=== PATIENT | male | born 2000 | race Caucasian/White ===

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

== ENCOUNTER 2020-01-07 16:46 | Inpatient (IN) | payer MEDICAID, SELFPAY ==
[2019-12-08 10:33] VITALS: BP 139/85; BMI 33.7
[2020-01-07 17:06] VITALS: BP 143/72; PULSE 75; RESP 18; TEMP 36.7; O2SAT 98; BMI 33.0
--- NOTE | 2020-01-07 17:27 | ED_ITS ---
HPI - Psych General: Chief Complaint: Psychiatric Symptoms Stated Complaint: [facility]/Crisis Hotline Time Seen by Provider: 01/07/20 17:10 Source: patient Mode of arrival: ambulatory Limitations: no limitations History of Present Illness: HPI Narrative: 19-year-old male who is states he has been out of his meds for last 2 weeks and states that he felt like before they were not working. He states that he has been having increased suicidal ideations along with homicidal ideations. He has no specific plans but states that he feels like he needs to get help he wants to be admitted at this time. Associated symptoms: Reports depression and suicidal ideation Review of Systems 2 Const: Denies: fever(s), chills, body aches or change in appetite Eyes: Denies: blurry vision or eye discomfort ENMT: Denies: throat pain or dental pain Card: Denies: chest pain Resp: Denies: dyspnea GI: Denies: abdominal pain, nausea, vomiting or diarrhea : Denies: dysuria Musc: Denies: neck pain or back pain Skin/Breast: Denies: rash Neuro: Denies: headache(s) Psych: Reports: depression and suicidal ideation Charles/Lymph: Denies: easy bruising All/Imm: Denies: urticaria PFSH ED PFSH: Medical History Attention-deficit hyperactivity disorder, combined type Attention-deficit hyperactivity disorder, predominantly hyperactive type Borderline personality disorder Conduct disorder, adolescent-onset type Post-traumatic stress disorder, chronic Family History Other Dementia Diabetes Hypertension Lung disease Psychiatric illness Social History Smoking and tobacco status: never smoked Second hand smoke exposure: Yes Alcohol intake: never Adopted: No Caregiver/support person: No Lives independently: Yes Household members: family Housing: House Marital status: Single Number of children: 0 Number of grandchildren: 0 Highest education level completed: High School Graduate service: No Current occupational status: student Current occupational exposures/hazards: No Pets and animals: Yes Pets & animals: cat(s) and dog(s) History of recent travel: No Leisure activites: art, reading and other Leisure activities details: video games Sexually active: No Current gender identity: Male Sun/Oriental Orthodox: Other Special sun needs: No Agree to transfusion: Yes Financial difficulty paying for basics: Not Very Hard Physical Exam Const: COMMON NORMALS: no acute distress, patient oriented x3 and healthy appearing HENMT: COMMON NORMALS: normocephalic and atraumatic HEAD & SCALP: normocephalic and atraumatic Eye: COMMON NORMALS: Equal, round and reactive pupils present and EOMs intact bilaterally PUPIL: Yes Equal, round and reactive pupils present Neck/C-Spine: COMMON NORMALS: full ROM and supple Chest: COMMONS NORMALS: normal inspection of the chest and normal palpation of entire chest wall Resp: COMMON NORMALS: normal respiratory effort, No retractions, No use of accessory muscles and clear to auscultation bilaterally AUSCULTATION: clear to auscultation bilaterally Cardio: COMMON NORMALS: regular rate, regular rhythm and No murmurs present (Cardio) RATE: regular rate RHYTHM: regular rhythm GI: COMMON NORMALS: Normal to inspection, nondistended, normoactive bowel sounds present, Soft to palpation, non-tender and no masses PALPATION: Yes Soft to palpation Extremity: COMMON NORMALS: normal to inspection and full ROM Neuro: COMMON NORMALS: patient oriented x3, moves all extremities and no focal motor deficits Psych: COMMON NORMALS: mental status grossly normal and cooperative MOOD & AFFECT: Yes depressed mood THOUGHT CONTENT: Yes Suicidality present Skin: COMMON NORMALS: no rashes or lesions noted and no wounds GENERAL SKIN EXAM: no rashes or lesions noted MDM - Psych MDM Narrative: Medical decision making narrative: Patient presents here with suicidal ideation. Patient not been taking his meds. I spoke to Dr. Lopez and will admit to the psychiatric unit. Patient is medically cleared and is well-appearing here.. Lab Data: Labs: Lab Results 01/07/20 Range/Units 17:57 WBC 7.0 (4.5-13.0) 10^3/ uL RBC 5.74 H (4.1-5.3) 10^6/u L Hgb 14.7 (11.7-16.6) g/dL Hct 46.5 (42.0-52.0) % MCV 81.0 (80-94) fL MCH 25.6 L (28.0-34.0) pg MCHC 31.6 (30.0-36.0) g/dL RDW 13.2 (12.1-15.1) % Plt Count 202 (130-400) 10^3/c mm MPV 12.2 H (7.4-10.4) fL Neut % (Auto) 51.7 % Lymph % (Auto) 31.7 % Porter % (Auto) 8.9 % Eos % (Auto) 6.9 % Baso % (Auto) 0.7 % Neut # (Auto) 3.62 (1.8-8.0) 10^3/u L Lymph # (Auto) 2.2 (1.5-6.5) 10^3/u L Porter # (Auto) 0.6 (0.2-0.9) 10^3/u L Eos # (Auto) 0.5 (0.0-0.8) 10^3/u L Baso # (Auto) 0.1 (0.0-0.1) 10^3/u L Nucleated RBC % (a uto) 0 % Nucleated RBCs # 0.0 /100WBC Discharge Plan Discharge Patient Disposition: Admitted As Inpatient Clinical Impression: Suicidal ideation Condition: Stable Referrals: Fracisco Perez MD [Primary Care Provider] - Coding Level of Care Code ED Physician Assistant Primary Care for Chg Fwd Exam Comprehensive
[2020-01-07 18:05] LABS: Basophils # 0.1 10^3/uL (0.0-0.1); Basophils % 0.7 %; Eosinophils # 0.5 10^3/uL (0.0-0.8); Eosinophils % 6.9 %; Hematocrit 46.5 % (42.0-52.0); Hemoglobin 14.7 g/dL (11.7-16.6); Lymphocytes # 2.2 10^3/uL (1.5-6.5); Lymphocytes % 31.7 %; Mean Corpuscular HGB Conc 31.6 g/dL (30.0-36.0); Mean Corpuscular Hemoglobin 25.6 pg (28.0-34.0); Mean Platelet Volume 12.2 fL (7.4-10.4); Monocytes # 0.6 10^3/uL (0.2-0.9); Monocytes % 8.9 %; Neutrophils # 3.62 10^3/uL (1.8-8.0); Neutrophils % 51.7 %; Nucleated Red Blood Cells % 0 %; Platelet Count 202 10^3/cmm (130-400); Red Blood Count 5.74 10^6/uL (4.1-5.3); Red Cell Distribution Width 13.2 % (12.1-15.1)
[2020-01-07 18:24] LABS: Amphetamines Screen Urine Negative (Negative); Barbiturates Screen Urine Negative (Negative); Benzodiazepines Screen Urine Negative (Negative); Cocaine Screen Urine Negative (Negative); Opiate Screen Urine Negative (Negative); PCP Screen Urine Negative (Negative); THC Screen Urine Negative (Negative)
[2020-01-07 18:27] LABS: Alanine Aminotransferase 57 U/L (0-41); Albumin Level 4.8 g/dL (3.5-5.2); Alkaline Phosphatase 103 IU/L (40-130); Anion Gap 16.2 (5-19); Aspartate Amino Transferase 27 U/L (0-40); Blood Urea Nitrogen 14 mg/dL (6-20); Carbon Dioxide 23 mmol/L (22-29); Chloride 105 mmol/L (98-107); Globulin 2.8 g/dL (1.3-4.6); Glomerular Filtration Rate 145.3 mL/min (90-130); Glucose 96 mg/dL (65-115); Osmolality Calculated 290 mOsm/kg (285-295); Potassium 4.2 mmol/L (3.5-5.1); Sodium 140 mmol/L (136-145); Total Bilirubin 0.3 mg/dL (0.15-1.2); Total Protein 7.6 g/dL (6.6-8.7)
[2020-01-07 18:33] LABS: Acetaminophen < 5.0 ug/mL (10-30); Alcohol Level < 10 mg/dL (0-10); Salicylate < 0.3 mg/dL (3-10)
[2020-01-07] MEDS: LORazepam 2 mg Tablet PO (18:41)
[2020-01-07 19:30] VITALS: BP 146/85; PULSE 75; RESP 18; TEMP 36.6; O2SAT 98
[2020-01-07 22:00] VITALS: BP 146/85; PULSE 75; RESP 18; TEMP 36.6; O2SAT 98
[2020-01-08 06:00] VITALS: BP 87/51; PULSE 54; RESP 17; TEMP 36.8; O2SAT 96
[2020-01-08] MEDS: fluoxetine 10 mg Capsule PO (08:46)
[2020-01-08] MEDS: OXcarbazepine 300 mg Tablet 150 MG PO ×2 (08:46→18:10)
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
[2020-01-08 13:52] VITALS: BP 134/73; PULSE 101; RESP 18; TEMP 37.3; O2SAT 95
[2020-01-08 22:00] VITALS: BP 139/74; PULSE 73; RESP 18; TEMP 36.6; O2SAT 97
--- NOTE | 2020-01-09 04:20 | PC.NURSE ---
Patient says he dont want any medication to sleep because he is having nightmeres.He reports command auditory hallucinations that never stop. He specified the fact that he hears 13 different voices. He says that they tell him to kill people, hurt people, and at times tell him to kill himself. He said the things that the voices tell me to do are very detailed but refused to share the content with me at this time. he said that at times he feels that people are talking about him. He says he can read lips but these masks are making him nervous because he can not see what people are saying. Then he went on to say that he is numb and that he lives in [place] everyday and really doesnt care what others say about him.
[2020-01-09 06:00] VITALS: BP 116/65; PULSE 55; RESP 17; TEMP 36.6; O2SAT 98
[2020-01-09] MEDS: fluoxetine 10 mg Capsule PO (08:55)
[2020-01-09] MEDS: OXcarbazepine 300 mg Tablet 150 MG PO ×2 (08:55→17:16)
--- NOTE | 2020-01-09 10:50 | PM.NPN ---
Subjective NPU Subjective: Interval history: Dex presents today reporting that the medication is functioning fine. We are continuing our investigation into what might be the issue with him obtaining the medication but currently he reports that a little better back on it. He denies any major issues reports he is eating okay and starting to sleep better. Mental Status Exam MSE Comments: This is an obese white male with adequate dress, grooming and limited eye contact. No abnormal movements except for psychomotor retardation. Cooperative with exam in mild distress. Speech was decreased rate and volume. Mood described as starting to feel a little better, affect remains flat. Thought process organized. Thought content: Patient denied any suicidal or homicidal ideation, there were no delusions reported or noted, he denied any auditory visual hallucinations. Attention and concentration appeared intact and memory appeared reliable but none were formally tested. He is alert and oriented x3. Insight and judgment are limited, impulse control is limited. Vitals/I&O/Wt Last Vital Signs Temp 98.7 F 01/09/20 20:41 Pulse 96 01/09/20 20:41 Resp 18 01/09/20 20:41 BP 119/79 01/09/20 20:41 Pulse Ox 97 01/09/20 20:41 Data NPU : 01/07/20 17:57 01/07/20 17:57 A&P Additional A&P Information (1) Suicidal ideation: (2) Attention-deficit hyperactivity disorder, combined type: (3) Post-traumatic stress disorder, chronic: (4) Borderline personality disorder: (5) Attention-deficit hyperactivity disorder, predominantly hyperactive type: (6) Conduct disorder, adolescent-onset type: (7) Autism spectrum disorder: This is a 19 year old, white male, with history of intermittent explosive disorder, attention deficit hyperactivity disorder, post-traumatic stress disorder, borderline personality disorder, and question of autism spectrum disorder, who presents off of medication and unclear if he can afford the medication, having not taken it for three weeks. Continue current medication, except: Encourage individual, group, and milieu therapy. Continue q-15 minute checks for safety. Involuntary Hold Information 96 Hour Hold: 96 Hour Involuntary Admission: No Attestations NPU Medical Necessity Statement*: Inpatient hospitalization is medically necessary and the clinically appropriate intervention, at this time. We will monitor medications and make changes as indicated.Likely length of stay is 2-3 days. 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
[2020-01-09 14:00] VITALS: BP 113/77; PULSE 99; RESP 18; TEMP 36.5; O2SAT 97
[2020-01-09 20:41] VITALS: BP 119/79; PULSE 96; RESP 18; TEMP 37.1; O2SAT 97
[2020-01-10 06:00] VITALS: BP 109/70; PULSE 70; RESP 16; TEMP 36.5; O2SAT 96
[2020-01-10] MEDS: OXcarbazepine 300 mg Tablet 150 MG PO ×2 (09:12→17:06)
[2020-01-10] MEDS: fluoxetine 10 mg Capsule PO (09:12)
--- NOTE | 2020-01-10 10:39 | P.PN_ITS ---
Subjective NPU Subjective: Interval history: Brian presents today reporting that things are going better. He feels much better being back on his medication. We discussed working with the treatment team tomorrow to get a full understanding of his insurance and payment situation so that we do not run into a similar situation in the future. He endorsed the need to be discharged by Saturday because of some family considerations. He reports that he is eating and sleeping better. Mental Status Exam MSE Comments: This is an obese white male with adequate dress, grooming and limited eye contact. No abnormal movements except for improving psychomotor retardation. Cooperative with exam in mild distress. Speech was decreased rate and normal volume. Mood described as starting to feel a little better, affect remains flat. Thought process organized. Thought content: Patient denied any suicidal or homicidal ideation, there were no delusions reported or noted, he denied any auditory visual hallucinations. Attention and concentration appeared intact and memory appeared reliable but none were formally tested. He is alert and oriented x3. Insight and judgment are limited, but improving, impulse control is limited. Vitals/I&O/Wt Last Vital Signs Temp 97.7 F 01/10/20 19:45 Pulse 86 01/10/20 19:45 Resp 16 01/10/20 19:45 BP 114/80 01/10/20 19:45 Pulse Ox 99 01/10/20 19:45 Weight last 48 hrs Weight 107.048 kg Data NPU : 01/07/20 17:57 01/07/20 17:57 A&P Additional A&P Information (1) Suicidal ideation: (2) Attention-deficit hyperactivity disorder, combined type: (3) Post-traumatic stress disorder, chronic: (4) Borderline personality disorder: (5) Attention-deficit hyperactivity disorder, predominantly hyperactive type: (6) Conduct disorder, adolescent-onset type: (7) Autism spectrum disorder: This is a 19 year old, white male, with history of intermittent explosive dis order, attention deficit hyperactivity disorder, post-traumatic stress disorder, borderline personality disorder, and question of autism spectrum disorder, who presents off of medication and unclear if he can afford the medication, having not taken it for three weeks. Continue current medication, except: Encourage individual, group, and milieu therapy. Continue q-15 minute checks for safety. Involuntary Hold Information 96 Hour Hold: 96 Hour Involuntary Admission: No Attestations NPU Medical Necessity Statement*: Inpatient hospitalization is medically necessary and the clinically appropriate intervention, at this time. We will monitor medications and make changes as indicated.Likely length of stay is 1-2 days. Coding Level of Care Code Acute Nursing Home Social Worker for [facility]
[2020-01-10 14:00] VITALS: BP 127/86; PULSE 94; RESP 18; TEMP 36.9
[2020-01-10 19:45] VITALS: BP 114/80; PULSE 86; RESP 16; TEMP 36.5; O2SAT 99
[2020-01-11 06:00] VITALS: BP 100/63; PULSE 75; RESP 16; TEMP 36.3; O2SAT 95
[2020-01-11] MEDS: fluoxetine 10 mg Capsule PO ×2 (07:50→12:00)
[2020-01-11] MEDS: OXcarbazepine 300 mg Tablet 150 MG PO (07:51)
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
[2020-01-11 12:05] VITALS: BP 100/63; PULSE 75; RESP 16; TEMP 36.3; O2SAT 95
--- NOTE | 2020-01-11 13:26 | NPU.GN ---
Brian seemed to be trying to be a class-clown today. For the first 20-30 minutes, he would speak over ECW while talking to Greg and made paper airplanes out of the reading material he was given. While he did add a couple of things to the conversation, neither statements were relevant to the conversation and he seemed as though he was just attempting to be funny. Brian did quiet down for the last half of the session but did not seem very engaged this afternoon.
== END 2020-01-11 15:10 | disposition home or self-care (01) | DRG 883 ==
LOC: ER 18:27 → NP 18:46
PROVIDERS: Emergency Medicine; Admitting Provider Psychiatry & Neurology Psychiatry; PCP Family Medicine; Visit Provider Psychiatry & Neurology Psychiatry
DX: F63.81 Intermittent explosive disorder (principal); R45.851 Suicidal ideations; F43.12 Post-traumatic stress disorder, chronic; Z91.120 Patient's intentional underdosing of medication regimen due to financial hardship; F90.2 Attention-deficit hyperactivity disorder, combined type; F90.1 Attention-deficit hyperactivity disorder, predominantly hyperactive type; F60.3 Borderline personality disorder; F91.9 Conduct disorder, unspecified; F84.0 Autistic disorder; Z81.8 Family history of other mental and behavioral disorders
CPT/HCPCS: 12345; 36415; 80053; 80306; 80307; 85025; 99284

== ENCOUNTER 2020-02-12 20:10 | Inpatient (IN) | payer MEDICAID, SELFPAY ==
[2019-12-08 10:33] VITALS: BP 139/85; BMI 33.7
[2020-02-12 20:17] VITALS: BP 136/74; PULSE 101; RESP 18; TEMP 36.4; O2SAT 98; BMI 32.8
--- NOTE | 2020-02-12 20:38 | ED_ITS ---
HPI - Psych General: Chief Complaint: Psychiatric Symptoms Stated Complaint: PSYCH Time Seen by Provider: 02/12/20 20:35 Source: patient Mode of arrival: ambulatory Limitations: no limitations History of Present Illness: HPI Narrative: 19-year-old male who states he has been having suicidal thoughts over the last 2 to 3 days. He states that he just has been severely depressed and does not have the will to live. He states he did not get his Concerta refilled. Denies any vomiting or diarrhea. Denies any attempts at suicide. complaint: suicidal ideation Associated symptoms: Reports depression and suicidal ideation Review of Systems Const: Denies: fever(s), chills, body aches or change in appetite Eyes: Denies: blurry vision or eye discomfort ENMT: Denies: throat pain or dental pain Card: Denies: chest pain Resp: Denies: dyspnea GI: Denies: abdominal pain, nausea, vomiting or diarrhea : Denies: dysuria Musc: Denies: neck pain or back pain Skin/Breast: Denies: rash Neuro: Denies: headache(s) Psych: Reports: depression and suicidal ideation Charles/Lymph: Denies: easy bruising All/Imm: Denies: urticaria PFSH ED PFSH: Medical History (Updated 02/12/20 @ 21:11 by Ibrahima Curiel MD) Attention-deficit hyperactivity disorder, combined type Borderline personality disorder Conduct disorder, adolescent-onset type Post-traumatic stress disorder, chronic Family History Other Dementia Diabetes Hypertension Lung disease Psychiatric illness Social History Smoking and tobacco status: never smoked Second hand smoke exposure: Yes Alcohol intake: never Adopted: No Caregiver/support person: No Lives independently: Yes Household members: family Housing: House Marital status: Single Number of children: 0 Number of grandchildren: 0 Highest education level completed: High School Graduate service: No Current occupational status: student Current occupational exposures/hazards: No Pets and animals: Yes Pets & animals: cat(s) and dog(s) History of recent travel: No Leisure activites: art, reading and other Leisure activities details: video games Sexually active: No Current gender identity: Male Sun/Evangelical: Other Special sun needs: No Agree to transfusion: Yes Financial difficulty paying for basics: Not Very Hard Physical Exam Const: COMMON NORMALS: no acute distress, patient oriented x3 and healthy appearing HENMT: COMMON NORMALS: normocephalic and atraumatic HEAD & SCALP: normocephalic and atraumatic Eye: COMMON NORMALS: Equal, round and reactive pupils present and EOMs intact bilaterally PUPIL: Yes Equal, round and reactive pupils present Neck/C-Spine: COMMON NORMALS: full ROM and supple Chest: COMMONS NORMALS: normal inspection of the chest and normal palpation of entire chest wall Resp: COMMON NORMALS: normal respiratory effort, No retractions, No use of accessory muscles and clear to auscultation bilaterally AUSCULTATION: clear to auscultation bilaterally Cardio: COMMON NORMALS: regular rate, regular rhythm and No murmurs present (Cardio) RATE: regular rate RHYTHM: regular rhythm GI: COMMON NORMALS: Normal to inspection, nondistended, normoactive bowel sounds present, Soft to palpation, non-tender and no masses PALPATION: Yes Soft to palpation Extremity: COMMON NORMALS: normal to inspection and full ROM Neuro: COMMON NORMALS: patient oriented x3, moves all extremities and no focal motor deficits Psych: COMMON NORMALS: mental status grossly normal, Normal thought process present and cooperative MOOD & AFFECT: Yes depressed mood THOUGHT PROCESS: Normal thought process present THOUGHT CONTENT: Yes Suicidality present Skin: COMMON NORMALS: no rashes or lesions noted and no wounds GENERAL SKIN EXAM: no rashes or lesions noted MDM - Psych MDM Narrative: Medical decision making narrative: Patient presents here with suicidal ideation. Patient voluntarily wanting to be admitted. He is well- appearing here and medically cleared. I spoke to psychiatrist and will admit to the psychiatric unit. Lab Data: Labs: Lab Results 02/12/20 Range/Units 20:42 WBC 8.8 (4.5-13.0) 10^3/ uL RBC 6.22 H (4.1-5.3) 10^6/u L Hgb 16.0 (11.7-16.6) g/dL Hct 50.9 (42.0-52.0) % MCV 81.8 (80-94) fL MCH 25.7 L (28.0-34.0) pg MCHC 31.4 (30.0-36.0) g/dL RDW 13.0 (12.1-15.1) % Plt Count 269 (130-400) 10^3/c mm MPV 12.2 H (7.4-10.4) fL Neut % (Auto) 56.6 % Lymph % (Auto) 29.2 % [place] % (Auto) 8.4 % Eos % (Auto) 5.0 % Baso % (Auto) 0.6 % Neut # (Auto) 4.97 (1.8-8.0) 10^3/u L Lymph # (Auto) 2.6 (1.5-6.5) 10^3/u L [place] # (Auto) 0.7 (0.2-0.9) 10^3/u L Eos # (Auto) 0.4 (0.0-0.8) 10^3/u L Baso # (Auto) 0.1 (0.0-0.1) 10^3/u L Nucleated RBC % (a uto) 0 % Nucleated RBCs # 0.0 /100WBC Discharge Plan Discharge Patient Disposition: Admitted As Inpatient Clinical Impression: Suicidal ideation Condition: Stable Coding Level of Care Code ED Grooving Machine Operator for Gi Fwd Exam Comprehensive
[2020-02-12 20:59] LABS: Basophils # 0.1 10^3/uL (0.0-0.1); Basophils % 0.6 %; Eosinophils # 0.4 10^3/uL (0.0-0.8); Hematocrit 50.9 % (42.0-52.0); Lymphocytes # 2.6 10^3/uL (1.5-6.5); Lymphocytes % 29.2 %; Mean Corpuscular HGB Conc 31.4 g/dL (30.0-36.0); Mean Corpuscular Hemoglobin 25.7 pg (28.0-34.0); Mean Corpuscular Volume 81.8 fL (80-94); Mean Platelet Volume 12.2 fL (7.4-10.4); Monocytes # 0.7 10^3/uL (0.2-0.9); Monocytes % 8.4 %; Neutrophils # 4.97 10^3/uL (1.8-8.0); Neutrophils % 56.6 %; Nucleated Red Blood Cells % 0 %; Platelet Count 269 10^3/cmm (130-400); Red Blood Count 6.22 10^6/uL (4.1-5.3); White Blood Count 8.8 10^3/uL (4.5-13.0)
[2020-02-12 21:13] LABS: Amphetamines Screen Urine Negative (Negative); Barbiturates Screen Urine Negative (Negative); Benzodiazepines Screen Urine Negative (Negative); Cocaine Screen Urine Negative (Negative); Opiate Screen Urine Negative (Negative); PCP Screen Urine Negative (Negative); THC Screen Urine Negative (Negative)
[2020-02-12 21:19] LABS: Alanine Aminotransferase 49 U/L (0-41); Albumin Level 5.1 g/dL (3.5-5.2); Alkaline Phosphatase 110 IU/L (40-130); Anion Gap 17.4 (5-19); Aspartate Amino Transferase 25 U/L (0-40); Blood Urea Nitrogen 22 mg/dL (6-20); Calcium 10.2 mg/dL (8.5-10.5); Carbon Dioxide 24 mmol/L (22-29); Chloride 107 mmol/L (98-107); Glomerular Filtration Rate 145.3 mL/min (90-130); Glucose 92 mg/dL (65-115); Osmolality Calculated 301 mOsm/kg (285-295); Potassium 4.4 mmol/L (3.5-5.1); Sodium 144 mmol/L (136-145); Total Bilirubin 0.2 mg/dL (0.15-1.2); Total Protein 8.1 g/dL (6.6-8.7)
[2020-02-12 21:20] LABS: Acetaminophen < 5.0 ug/mL (10-30); Alcohol Level < 10 mg/dL (0-10); Salicylate < 0.3 mg/dL (3-10)
[2020-02-12 21:33] VITALS: BP 164/99; PULSE 95; RESP 18; O2SAT 97
[2020-02-12 21:39] VITALS: BP 143/84; PULSE 101; RESP 17; TEMP 37.7; O2SAT 98
[2020-02-12 22:00] VITALS: BP 143/84; PULSE 101; RESP 17; TEMP 37.7; O2SAT 98
[2020-02-12 23:00] VITALS: BP 143/84; PULSE 101; RESP 17; TEMP 37.7; O2SAT 98
[2020-02-13 06:00] VITALS: BP 93/55; PULSE 64; RESP 16; TEMP 36.8; O2SAT 95
[2020-02-13] MEDS: fluoxetine 20 mg Capsule PO (08:20)
[2020-02-13] MEDS: topiramate 25 mg Tablet 50 MG PO ×2 (08:20→17:13)
[2020-02-13] MEDS: OXcarbazepine 300 mg Tablet 150 MG PO ×2 (08:20→20:44)
[2020-02-13 13:23] VITALS: BP 134/84; PULSE 79; RESP 18; TEMP 36.7
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
[2020-02-13 20:34] VITALS: BP 124/77; PULSE 66; RESP 15; TEMP 37.1; O2SAT 98
[2020-02-14 06:00] VITALS: BP 126/78; PULSE 72; RESP 17; TEMP 37.1; O2SAT 97
[2020-02-14] MEDS: topiramate 25 mg Tablet 50 MG PO ×2 (08:15→17:06)
[2020-02-14] MEDS: fluoxetine 20 mg Capsule PO (08:15)
[2020-02-14] MEDS: OXcarbazepine 300 mg Tablet 150 MG PO ×2 (08:22→21:06)
[2020-02-14 13:39] VITALS: BP 100/61; PULSE 64; RESP 18; TEMP 36.7; O2SAT 97
[2020-02-14] MEDS: buPROPion SR (12 HR) 150 mg Tablet PO (14:26)
--- NOTE | 2020-02-14 14:39 | P.PN_ITS ---
Subjective NPU Subjective: Interval history: There presents today continuing to report that he is not feeling any better. He reports he continues to be depressed. We discussed the risk, benefits and alternatives of initiating Wellbutrin for his depression and for ADHD since cannot get his methylphenidate and understood and agreed to proceed as is documented in this note. Mental Status Exam MSE Comments: This is an obese white male with adequate dress, grooming and improving eye contact. No abnormal movements except for psychomotor retardation. Cooperative with exam in mild distress. Speech was decreased rate and volume. Mood described as depressed, affect congruent. Thought process organized. Thought content: Patient expressed suicidal but denied homicidal ideation, there were no delusions reported or noted, he denied any auditory visual hallucinations. Attention and concentration appeared intact and memory appeared reliable but none were formally tested. He is alert and oriented x3. Insight and judgment are limited, impulse control is limited. Vitals/I&O/Wt Last Vital Signs Temp 98.6 F 02/14/20 20:22 Pulse 107 H 02/14/20 20:22 Resp 17 02/14/20 20:22 BP 124/78 02/14/20 20:22 Pulse Ox 100 02/14/20 20:22 Weight last 48 hrs Weight 106.594 kg Data NPU : 02/12/20 20:42 02/12/20 20:42 A&P Additional A&P Information (1) Suicidal ideation: (2) Autism spectrum disorder: (3) Attention-deficit hyperactivity disorder, combined type: (4) Post-traumatic stress disorder, chronic: (5) Borderline personality disorder: (6) Conduct disorder, adolescent-onset type: Additional A&P Information This is a 19 year old, white male, with history of intermittent explosive disorder, attention deficit hyperactivity disorder, post-traumatic stress disorder, borderline personality disorder, and question of autism spectrum disorder, who presents off of medication and unclear if he can afford the medication, having not taken it for three weeks. Need to see if there is an alternative for his Concerta or a way to ensure that he gets coverage. Continue current medication, except: Start Wellbutrin SR 150 now x1 and Wellbutrin XL 150 mg p.o. every morning Encourage individual, group, and milieu therapy. Continue q-15 minute checks for safety. Involuntary Hold Information 96 Hour Hold: 96 Hour Involuntary Admission: No Attestations NPU Medical Necessity Statement*: Inpatient hospitalization is medically necessary and the clinically appropriate intervention, at this time. We will monitor medications and make changes as indicated. Likely length of stay is 2-4 days. 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
[2020-02-14 20:22] VITALS: BP 124/78; PULSE 107; RESP 17; TEMP 37; O2SAT 100
[2020-02-15 06:00] VITALS: BP 107/70; PULSE 62; RESP 15; TEMP 37; O2SAT 97
[2020-02-15] MEDS: fluoxetine 20 mg Capsule PO (08:55)
[2020-02-15] MEDS: topiramate 25 mg Tablet 50 MG PO ×2 (08:55→20:43)
[2020-02-15] MEDS: OXcarbazepine 300 mg Tablet 150 MG PO ×2 (08:56→20:41)
[2020-02-15] MEDS: buPROPion XL (24 HR) 150 mg Tablet PO (08:56)
[2020-02-15 14:00] VITALS: BP 127/72; PULSE 82; RESP 18; TEMP 36.2; O2SAT 97
--- NOTE | 2020-02-15 15:25 | P.PN_ITS ---
Subjective NPU Subjective: Interval history: Dex presents today reporting that he is doing okay with the Wellbutrin but he does not know that it is strong enough as he continues to feel depressed. We discussed the fact and reviewed the purpose of these medications he is imagining are for his ADHD. Clearly he has an errant idea in that regard. We discussed the fact that he used to be on Abilify as a mood stabilizer and he reports that it worked really well but he did not like the injection. We discussed the risks, benefits and alternatives of restarting the Abilify, but avoiding the injection as the vehicle of administration and he understood and agreed to proceed as documented in this note. Mental Status Exam MSE Comments: This is an obese white male with adequate dress, grooming and i mproving eye contact. No abnormal movements except for psychomotor retardation. Cooperative with exam in mild distress. Speech was decreased rate and volume. Mood described as depressed, affect congruent. Thought process organized. Thought content: Patient expressed suicidal but denied homicidal ideation, there were no delusions reported or noted, he denied any auditory visual hallucinations. Attention and concentration appeared intact and memory appeared reliable but none were formally tested. He is alert and oriented x3. Insight and judgment are limited, impulse control is limited. Vitals/I&O/Wt Last Vital Signs Temp 98.6 F 02/15/20 20:29 Pulse 103 H 02/15/20 20:29 Resp 15 02/15/20 20:29 BP 140/82 02/15/20 20:29 Pulse Ox 97 02/15/20 20:29 02/15/20 02/15/20 02/16/20 14:59 22:59 06:59 Intake Total 250 / 250 Balance 250 / 250 Weight last 48 hrs Weight 106.594 kg Data NPU : 02/12/20 20:42 02/12/20 20:42 A&P Additional A&P Information (1) Suicidal ideation: (2) Autism spectrum disorder: (3) Attention-deficit hyperactivity disorder, combined type: (4) Post-traumatic stress disorder, chronic: (5) Borderline personality disorder: (6) Conduct disorder, adolescent-onset type: Additional A&P Information This is a 19 year old, white male, with history of intermittent explosive disorder, attention deficit hyperactivity disorder, post-traumatic stress disorder, borderline personality disorder, and question of autism spectrum disorder, who presents off of medication and unclear if he can afford the medication, having not taken it for three weeks. Need to see if there is an alternative for his Concerta or a way to ensure that he gets coverage. Continue current medication, except: Start Abilify 5 mg now and 10 mg p.o. every morning. Encourage individual, group, and milieu therapy. Continue q-15 minute checks for safety. Involuntary Hold Information 96 Hour Hold: 96 Hour Involuntary Admission: No Attestations NPU 2 Medical Necessity Statement*: Inpatient hospitalization is medically necessary and the clinically appropriate intervention, at this time. We will monitor medic ations and make changes as indicated. Likely length of stay is 2-4 days. 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
[2020-02-15] MEDS: ARIPiprazole 10 mg Tablet 5 MG PO (17:11)
[2020-02-15 20:29] VITALS: BP 140/82; PULSE 103; RESP 15; TEMP 37; O2SAT 97
[2020-02-15] MEDS: trazodone 50 mg Tablet PO (20:43)
--- NOTE | 2020-02-16 02:04 | PC.NURSE ---
grief Pt tearfully expressed feelings regarding the loss of a close friend recently. He stated that this is the eleventh close relationship that ended in . He does not like to cry in front of others and stated I only cry at night, so others dont see me. He masks his feelings with jovial actions.
[2020-02-16 06:00] VITALS: BP 141/78; PULSE 76; RESP 16; TEMP 36.9; O2SAT 97
[2020-02-16] MEDS: ARIPiprazole 10 mg Tablet PO (07:56)
[2020-02-16] MEDS: topiramate 25 mg Tablet 50 MG PO ×2 (07:56→20:43)
[2020-02-16] MEDS: buPROPion XL (24 HR) 150 mg Tablet PO (07:57)
[2020-02-16] MEDS: fluoxetine 20 mg Capsule PO (07:57)
[2020-02-16] MEDS: OXcarbazepine 300 mg Tablet 150 MG PO ×2 (07:57→20:43)
--- NOTE | 2020-02-16 13:19 | PM.NPN ---
Subjective NPU Subjective: Interval history: Dex presents today reporting that he still feeling depressed. We discussed the importance of him identifying that none of these medications are immediate affect. We had a long discussion about his home life and the lack of positive direction he gets from there. He reports that everyone in the home is on disability. We discussed him trying to carve his own path and to find some purpose versus staying at home and being stuck in the limitations there. He denies any issues with eating or sleeping. Mental Status Exam MSE Comments: This is an obese white male with adequate dress, grooming and improving eye contact. No abnormal movements except for psychomotor retardation. Cooperative with exam in mild distress. Speech was decreased rate and volume. Mood described as depressed, affect congruent. Thought process organized. Thought content: Patient expressed suicidal but denied homicidal ideation, there were no delusions reported or noted, he denied any auditory visual hallucinations. Attention and concentration appeared intact and memory appeared reliable but none were formally tested. He is alert and oriented x3. Insight and judgment are limited, impulse control is limited. Vitals/I&O/Wt Last Vital Signs Temp 97.8 F 02/16/20 20:42 Pulse 79 02/16/20 20:42 Resp 18 02/16/20 20:42 BP 142/75 02/16/20 20:42 Pulse Ox 97 02/16/20 20:42 Data NPU : 02/12/20 20:42 02/12/20 20:42 A&P Additional A&P Information (1) Suicidal ideation: (2) Autism spectrum disorder: (3) Attention-deficit hyperactivity disorder, combined type: (4) Post-traumatic stress disorder, chronic: (5) Borderline personality disorder: (6) Conduct disorder, adolescent-onset type: This is a 19 year old, white male, with history of intermittent explosive disorder, attention deficit hyperactivity disorder, post-traumatic stress disorder, borderline personality disorder, and question of autism spectrum disorder, who presents off of medication and unclear if he can afford the medication, having not taken it for three weeks. Need to see if there is an alternative for his Concerta or a way to ensure that he gets coverage. Continue current medication. Encourage individual, group, and milieu therapy. Continue q-15 minute checks for safety. Involuntary Hold Information 96 Hour Hold: 96 Hour Involuntary Admission: No Attestations NPU Medical Necessity Statement*: Inpatient hospitalization is medically necessary and the clinically appropriate intervention, at this time. We will monitor medications and make changes as indicated. Likely length of stay is 1-3 days. Coding Level of Care Code Acute Residential Sales Consultant for [facility]
[2020-02-16 14:00] VITALS: BP 131/79; PULSE 91; RESP 18; TEMP 37.1; O2SAT 97
[2020-02-16 20:42] VITALS: BP 142/75; PULSE 79; RESP 18; TEMP 36.6; O2SAT 97
[2020-02-16] MEDS: hyDROXYzine 25 mg Capsule 50 MG PO (20:43)
[2020-02-16] MEDS: trazodone 50 mg Tablet PO (20:44)
[2020-02-17 06:00] VITALS: BP 134/76; PULSE 94; RESP 17; TEMP 36.8; O2SAT 97
[2020-02-17] MEDS: OXcarbazepine 300 mg Tablet 150 MG PO (08:03)
[2020-02-17] MEDS: fluoxetine 20 mg Capsule PO (08:03)
[2020-02-17] MEDS: ARIPiprazole 10 mg Tablet PO (08:03)
[2020-02-17] MEDS: topiramate 25 mg Tablet 50 MG PO (08:03)
[2020-02-17] MEDS: buPROPion XL (24 HR) 150 mg Tablet PO (08:03)
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
[2020-02-17 14:44] VITALS: BP 134/76; PULSE 94; RESP 17; TEMP 36.8; O2SAT 97
== END 2020-02-17 16:51 | disposition home or self-care (01) | DRG 883 ==
LOC: ER 21:11 → NP 21:24
PROVIDERS: Admitting Provider Psychiatry & Neurology Psychiatry; Emergency Provider Emergency Medicine; PCP Family Medicine; Visit Provider Psychiatry & Neurology Psychiatry
DX: F60.3 Borderline personality disorder (principal); R45.851 Suicidal ideations; F90.9 Attention-deficit hyperactivity disorder, unspecified type; F91.2 Conduct disorder, adolescent-onset type; F43.12 Post-traumatic stress disorder, chronic; F84.0 Autistic disorder
CPT/HCPCS: 12345; 80053; 80306; 80307; 85025; 99284

== ENCOUNTER → 2020-05-27 08:08 | Outpatient (BNVA) | payer MEDICAID, SELFPAY ==
[2019-12-08 10:33] VITALS: BP 139/85; BMI 33.7
== END ==
PROVIDERS: PCP Family Medicine; Visit Provider Nurse Practitioner
DX: F43.12 Post-traumatic stress disorder, chronic (principal); F90.2 Attention-deficit hyperactivity disorder, combined type; F60.3 Borderline personality disorder; F91.2 Conduct disorder, adolescent-onset type
CPT/HCPCS: 99214

== ENCOUNTER → 2020-07-25 08:30 | Outpatient (BNVA) | payer MEDICAID, SELFPAY ==
[2019-12-08 10:33] VITALS: BP 139/85; BMI 33.7
== END ==
PROVIDERS: PCP Family Medicine; Visit Provider Nurse Practitioner
DX: F90.2 Attention-deficit hyperactivity disorder, combined type (principal); F43.12 Post-traumatic stress disorder, chronic; F60.3 Borderline personality disorder; F91.2 Conduct disorder, adolescent-onset type
CPT/HCPCS: 99214

== ENCOUNTER 2020-08-27 16:00 | Inpatient (IN) | payer MEDICAID, SELFPAY ==
[2019-12-08 10:33] VITALS: BP 139/85; BMI 33.7
[2020-08-27 16:00] VITALS: BP 171/102; PULSE 107; RESP 18; TEMP 36.6; O2SAT 98; BMI 34.8
--- NOTE | 2020-08-27 16:21 | W.ED.PSYCH ---
HPI - Psych General: Chief Complaint: Psychiatric Symptoms Stated Complaint: SI Time Seen by Provider: 08/27/20 16:05 History of Present Illness: HPI Narrative: 19-year-old male presents emergency room via EMS. He had made comments about harming himself and shooting himself he is cut himself arms multiple times has several shallow abrasions none of which would require sutures. Predominantly on his left arm. He has some scars from previous cutting. He states he lives at home and his parents do not allow him to participate or do anything he basically unable to go to school or hold a job he did tells me he is denied access to the outside world. He has a phone that only can extend Internet he says it is healing we can communicate with other people. He made comments about harming himself trying to get out of the situation per his report. He does not wish to see any family members here. He has previously been admitted to this facility on at least 2 occasions. MD complaint: suicidal ideation and feels depressed Onset (ago): year(s) Duration: constant History of same: Yes Relieving factors: none Exacerbating factors: none Context: significant life stressor Associated psychiatric symptoms: none Associated symptoms: Reports no associated symptoms, homicidal ideation and suicidal ideation Treatments prior to arrival: none If self harm: admits thoughts of self harm, has plan and self-inflicted trauma Review of Systems Const: Denies: fever(s), chills, body aches, change in appetite, fatigue or malaise ENMT: Denies: throat pain, ear or mastoid pain, nasal discharge or nasal congestion Card: Denies: chest pain, edema, dyspnea on exertion or orthopnea Resp: Denies: dyspnea, productive cough or non-productive cough GI: Denies: abdominal pain, nausea, vomiting, hematemesis, coffee ground emesis, diarrhea, constipation, bloating, hematochezia or melena : Denies: flank pain, dysuria, urinary frequency or urinary urgency Skin/Breast: Denies: rash or pruritus Psych: Reports: suicidal ideation and homicidal ideation [facility] PFSH: Medical History (Updated 08/27/20 @ 16:30 by Dre Alcala DO) Attention-deficit hyperactivity disorder, combined type Borderline personality disorder Conduct disorder, adolescent-onset type Post-traumatic stress disorder, chronic Family History Other Dementia Diabetes Hypertension Lung disease Psychiatric illness Social History Smoking and tobacco status: never smoked Second hand smoke exposure: Yes Alcohol intake: never Adopted: No Caregiver/support person: No Lives independently: Yes Household members: family Housing: House Marital status: Single Number of children: 0 Number of grandchildren: 0 Highest education level completed: High School Graduate service: No Current occupational status: student Current occupational exposures/hazards: No Pets and animals: Yes Pets & animals: cat(s) and dog(s) History of recent travel: No Leisure activites: art, reading and other Leisure activities details: video games Sexually active: No Current gender identity: Male Sun/Yazdanism: Other Special sun needs: No Agree to transfusion: Yes Financial difficulty paying for basics: Not Very Hard Physical Exam Const: COMMON NORMALS: no acute distress GENERAL APPEARANCE: cooperative and comfortable ORIENTATION/CONSCIOUSNESS: Yes awake, Yes oriented to person, Yes oriented to place and Yes oriented to time HENMT: COMMON NORMALS: normocephalic, atraumatic and hearing grossly normal bilaterally HEAD & SCALP: normocephalic and atraumatic Neck/C-Spine: COMMON NORMALS: no JVD Resp: COMMON NORMALS: normal respiratory effort, No retractions, No use of accessory muscles and clear to auscultation bilaterally AUSCULTATION: clear to auscultation bilaterally Cardio: COMMON NORMALS: no JVD, regular rate, regular rhythm and No murmurs present (Cardio) RATE: regular rate RHYTHM: regular rhythm Extremity: COMMON NORMALS: normal to inspection, capillary refill normal, no clubbing, cyanosis or edema, no calf tenderness and no pedal edema Neuro: SENSORIUM/ORIENTATION: Yes oriented to person, Yes oriented to place and Yes oriented to time Skin: COMMON NORMALS: no rashes or lesions noted GENERAL SKIN EXAM: no rashes or lesions noted Course Vital Signs: Vital signs: Vital Signs Temperature 97.8 F 08/27/20 16:00 Pulse Rate 107 H 08/27/20 16:00 Respiratory Rate 18 08/27/20 16:00 Blood Pressure 171/102 08/27/20 16:00 Pulse Oximetry 98 08/27/20 16:00 MDM - Psych MDM Narrative: Medical decision making narrative: Reviewed the old chart he was admitted twice discussed Dr. Lopez I am concerned that it we let him go he would escalate to get attention. He states he made suicidal threats just to get himself out of what he sees as a unbearable situation. He is willing to be admitted. After discussion Dr. Anders, he recommends observation he will evaluate further. Discharge Plan Discharge Patient Disposition: Placed in Observation Clinical Impression: Borderline personality disorder, Attention-deficit hyperactivity disorder, combined type, Autism spectrum disorder, Suicidal ideation Coding Level of Care Code ED Questioned Documents Examiner for Gi Fwd Exam Detailed
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
--- NOTE | 2020-08-27 16:46 | PC.PHAR ---
pt states he takes care of his own medications-pt brought in medication bottles-notes are made in the pharmacy comments of each rx with the dates that was on the bottles brought in
[2020-08-27 16:59] LABS: Add Urine Microscopic? YES; Bilirubin Urine Neg (Negative); Blood Urine Neg (Negative); Glucose Urine UA Norm (Normal); Ketones Urine Negative (Negative); Leukocyte Esterase Urine Negative (Negative); Nitrate Urine Negative (Negative); Protein Urine 1+ (Negative); Urine Appearance Clear (CLEAR); Urine Color Yellow (Yellow); Urobilinogen Urine Norm (Negative); pH Urine 7 (5-7)
[2020-08-27 17:00] LABS: Add Urine Culture? No; Bacteria Urine TRACE /hpf; Mucus Urine TRACE /hpf; WBC Urine RARE /hpf (0-5)
[2020-08-27 17:32] VITALS: BP 136/90; PULSE 94; RESP 18; TEMP 37.2; O2SAT 94
[2020-08-27 17:33] LABS: Basophils % 0.6 %; Eosinophils # 0.3 10^3/uL (0.0-0.8); Hematocrit 49.8 % (42.0-52.0); Hemoglobin 15.8 g/dL (11.7-16.6); Lymphocytes # 1.9 10^3/uL (1.5-6.5); Mean Corpuscular HGB Conc 31.7 g/dL (30.0-36.0); Mean Corpuscular Hemoglobin 25.5 pg (28.0-34.0); Mean Corpuscular Volume 80.3 fL (80-94); Mean Platelet Volume 11.5 fL (7.4-10.4); Monocytes # 0.5 10^3/uL (0.2-0.9); Monocytes % 6.9 %; Neutrophils # 4.13 10^3/uL (1.8-8.0); Neutrophils % 60.4 %; Nucleated Red Blood Cells % 0 %; Platelet Count 237 10^3/cmm (130-400); Red Cell Distribution Width 12.8 % (12.1-15.1); White Blood Count 6.8 10^3/uL (4.5-13.0)
[2020-08-27 17:57] LABS: Alanine Aminotransferase 59 U/L (0-41); Alkaline Phosphatase 102 IU/L (40-130); Anion Gap 16.2 (5-19); Aspartate Amino Transferase 25 U/L (0-40); Blood Urea Nitrogen 15 mg/dL (6-20); Calcium 9.7 mg/dL (8.5-10.5); Carbon Dioxide 24 mmol/L (22-29); Chloride 107 mmol/L (98-107); Glomerular Filtration Rate 173.6 mL/min (90-130); Glucose 102 mg/dL (65-115); Osmolality Calculated 297 mOsm/kg (285-295); Potassium 4.2 mmol/L (3.5-5.1); Sodium 143 mmol/L (136-145); Total Bilirubin 0.2 mg/dL (0.15-1.2)
[2020-08-27 18:00] LABS: Acetaminophen < 5.0 ug/mL (10-30); Salicylate < 0.3 mg/dL (3-10)
[2020-08-27 19:24] VITALS: BP 113/68; PULSE 89; RESP 18; TEMP 36.9; O2SAT 98
[2020-08-28 06:00] VITALS: BP 125/73; PULSE 75; RESP 17; TEMP 36.5; O2SAT 97
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
[2020-08-28 13:52] VITALS: BP 127/77; PULSE 75; RESP 17; TEMP 36.5; O2SAT 98
[2020-08-28 20:13] VITALS: BP 130/92; PULSE 93; RESP 16; TEMP 36.8; O2SAT 97
[2020-08-29 06:00] VITALS: BP 130/72; PULSE 72; RESP 16; TEMP 37.2; O2SAT 97
[2020-08-29 13:45] VITALS: BP 119/75; PULSE 101; RESP 16; TEMP 37.2; O2SAT 96
--- NOTE | 2020-08-29 14:10 | P.PN_ITS ---
Subjective NPU Subjective: Interval history: Brian presents today reporting that he is feeling okay. He did ask about his medication and our current investigations of his medication as a likely off his medication for a few months. At the time of our conversation he did not mention this. We did discuss at the time initially onset of present and then evaluating everything else from there. He is working with the treatment team/social workers to find a reasonable option placement after discharge. Mental Status Exam MSE Comments: This is an obese white male in hospital scrubs with limited grooming and eye contact. No abnormal movements except for mild psychomotor retardation. Cooperative with exam in mild distress. Speech was decreased rate and volume. Mood described as okay, affect brighter. Thought process organized. Thought content: Patient denied current suicidal or homicidal id eation but reports he worries will happen if he stays in at home, no delusions reported noted, he denies any auditory or visual hallucinations. Attention and concentration were intact and memory appeared reliable but none were formally tested. He is alert and oriented x3. Insight and judgment appear limited impulse control appears impaired and intellectual ability appeared limited. Vitals/I&O/Wt Last Vital Signs Temp 98.9 F 08/29/20 13:45 Pulse 101 H 08/29/20 13:45 Resp 16 08/29/20 13:45 BP 119/75 08/29/20 13:45 Pulse Ox 96 08/29/20 13:45 Weight last 48 hrs Weight 113.398 kg Weight 113.398 kg Data NPU : 08/27/20 17:24 08/27/20 17:24 A&P Additional A&P Information (1) Suicidal ideation: (2) Autism spectrum disorder: (3) Attention-deficit hyperactivity disorder, combined type: (4) Post-traumatic stress disorder, chronic: (5) Borderline personality disorder: Additional A&P Information This is a 19 year old, white male, with history of intermittent explosive disorder, attention deficit hyperactivity disorder, post-traumatic stress disorder, borderline personality disorder, and autism spectrum disorder, who presents endorsing that his situation at home is not sustainable and he can no longer contract for safety there looking for connections to services to assist him in his independence. 1. Continue current medication. Start Prozac 20 mg p.o. every morning and get collateral information on his medication usage and possible other pharmacy as his last appointment was last month to make sure there is not some confusion from some outside pharmacy or something. 2. Continue every 15 minute checks for safety. 3. Encourage individual, group and milieu therapies. 4. We will see collateral information on the circumstances. 5. We will need to assist him in discontinuing his money to his father's account. Involuntary Hold Information 96 Hour Hold: 96 Hour Involuntary Admission: No Attestations NPU Medical Necessity Statement*: Inpatient hospitalization is medically necessary and the clinically appropriate intervention, at this time. We will monitor medications and make changes as indicated. Likely length of stay is 2-4 days. Coding Level of Care Code Acute Professor Of Environmental Science for Gi Allen
[2020-08-29 19:34] VITALS: BP 134/85; PULSE 84; RESP 20; TEMP 37.2; O2SAT 96
[2020-08-29] MEDS: fluoxetine 20 mg Capsule PO (19:38)
[2020-08-30 06:00] VITALS: BP 98/66; PULSE 70; RESP 16; TEMP 36.8; O2SAT 97
[2020-08-30] MEDS: fluoxetine 20 mg Capsule PO (09:40)
--- NOTE | 2020-08-30 13:07 | P.PN_ITS ---
Subjective NPU Subjective: Interval history: We continued to work with Brian to figure out the logistics of this transition in his life. To figure out how to become his own payee as well as identify possible places for him to begin his independent living. Also trying to identify with some certainty what medications he was taking prior to admission. At this point we are proceeding based on the information we can find stating that he has not been adherent to his medications. Mental Status Exam MSE Comments: This is an obese white male in hospital scrubs with limited grooming and eye contact. No abnormal movements. Cooperative with exam in mild distress. Speech was more normal rate and volume. Mood described as anxious about what is next but I cannot go back home, affect brighter. Thought process organized. Thought content: Patient denied current suicidal or homicidal ideation but reports he worries will happen if he stays in at home, no delusions reported noted, he denies any auditory or visual hallucinations. Attention and concentration were intact and memory appeared reliable but none were formally tested. He is alert and oriented x3. Insight and judgment appear limited impulse control appears impaired and intellectual ability appeared limited. Vitals/I&O/Wt Last Vital Signs Temp 98.4 F 08/30/20 20:10 Pulse 99 08/30/20 20:10 Resp 19 H 08/30/20 20:10 BP 119/82 08/30/20 20:10 Pulse Ox 96 08/30/20 20:10 Data NPU : 08/27/20 17:24 08/27/20 17:24 A&P Additional A&P Information (1) Suicidal ideation: (2) Autism spectrum disorder: (3) Attention-deficit hyperactivity disorder, combined type: (4) Post-traumatic stress disorder, chronic: (5) Borderline personality disorder: Additional A&P Information This is a 19 year old, white male, with history of intermittent explosive disorder, attention deficit hyperactivity disorder, post-traumatic stress disorder, borderline personality disorder, and autism spectrum disorder, who presents endorsing that his situation at home is not sustainable and he can no longer contract for safety there looking for connections to services to assist him in his independence. 1. Continue current medication. 2. Continue every 15 minute checks for safety. 3. Encourage individual, group and milieu therapies. 4. We will see collateral information on the circumstances. 5. We will need to assist him in discontinuing his money to his father's account and get some collateral information from his parents. Involuntary Hold Information 96 Hour Hold: 96 Hour Involuntary Admission: No Attestations NPU Medical Necessity Statement*: Inpatient hospitalization is medically necessary and the clinically appropriate intervention, at this time. We will monitor medications and make changes as indicated. Likely length of stay is 2-4 days. Coding Level of Care Code Acute Supervisor [employer] for Gi Allen
[2020-08-30 13:20] VITALS: BP 119/72; PULSE 84; RESP 16; TEMP 37; O2SAT 96
[2020-08-30 20:10] VITALS: BP 119/82; PULSE 99; RESP 19; TEMP 36.9; O2SAT 96
[2020-08-31 06:00] VITALS: BP 107/71; PULSE 69; RESP 16; TEMP 36.5; O2SAT 97
[2020-08-31] MEDS: fluoxetine 20 mg Capsule PO (07:39)
--- NOTE | 2020-08-31 09:32 | P.PN_ITS ---
Subjective NPU Subjective: Interval history: Patient presents today reporting that he is doing okay. We discussed the fact that we did reach his father and his father denied any plan to fight him in regards to implying an alternative living arrangement. Continue to explore different possibilities for him and we discussed the fact that it is possible that he may need to have an intermediate living arrangement prior to placement. The good news is that places have been open to taking him the issue has been availability. Mental Status Exam MSE Comments: This is an obese white male in hospital scrubs with limited grooming and eye contact. No abnormal movements. Cooperative with exam in no acute distress. Speech was more normal rate and volume. Mood described as tired but little better, affect congruent. Thought process organized. Thought content: Patient denied current suicidal or homicidal ideation but reports he worries will happen if he stays in at home, no delusions reported noted, he denies any auditory or visual hallucinations. Attention and concentration were intact and memory appeared reliable but none were formally tested. He is alert and oriented x3. Insight and judgment appear limited impulse control appears impaired and intellectual ability appeared limited. Vitals/I&O/Wt Last Vital Signs Temp 97.7 F 08/31/20 06:00 Pulse 69 08/31/20 06:00 Resp 16 08/31/20 06:00 BP 107/71 08/31/20 06:00 Pulse Ox 97 08/31/20 06:00 Data NPU : 08/27/20 17:24 08/27/20 17:24 A&P Additional A&P Information (1) Suicidal ideation: (2) Autism spectrum disorder: (3) Attention-deficit hyperactivity disorder, combined type: (4) Post-traumatic stress disorder, chronic: (5) Borderline personality disorder: Additional A&P Information This is a 19 year old, white male, with history of intermittent explosive disor ann, attention deficit hyperactivity disorder, post-traumatic stress disorder, borderline personality disorder, and autism spectrum disorder, who presents endorsing that his situation at home is not sustainable and he can no longer contract for safety there looking for connections to services to assist him in his independence. 1. Continue current medication. 2. Continue every 15 minute checks for safety. 3. Encourage individual, group and milieu therapies. 4. We will see collateral information on the circumstances. 5. We will need to assist him in discontinuing his money to his father's account and get some collateral information from his parents. Involuntary Hold Information 96 Hour Hold: 96 Hour Involuntary Admission: No Attestations NPU Medical Necessity Statement*: Inpatient hospitalization is medically necessary and the clinically appropriate intervention, at this time. We will monitor medications and make changes as indicated. Likely length of stay is 2-4 days. Coding Level of Care Code Acute Compressor [employer] for Gi Allen
[2020-08-31 14:00] VITALS: BP 131/78; PULSE 95; RESP 20; TEMP 36.9; O2SAT 95
[2020-08-31 22:00] VITALS: BP 128/80; PULSE 82; RESP 16; TEMP 37; O2SAT 87
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
[2020-09-01 06:00] VITALS: BP 104/74; PULSE 62; RESP 16; TEMP 37; O2SAT 97
[2020-09-01] MEDS: fluoxetine 20 mg Capsule PO (08:34)
--- NOTE | 2020-09-01 09:48 | P.DS_ITS ---
Diagnoses at Discharge Discharge Diagnosis (1) Suicidal ideation: Status: Acute (2) Autism spectrum disorder: Status: Acute (3) Attention-deficit hyperactivity disorder, combined type: Status: Acute (4) Post-traumatic stress disorder, chronic: Status: Acute (5) Borderline personality disorder: Status: Acute Reason for Visit Reason for Visit: SI Hospital Course Hospital Course 19-year-old male with history of ADHD, conduct disorder, borderline personality disorder, autistic spectrum disorder presented to the emergency department by EMS with self harming behavior of scratching and superficial cuts with suicidal ideation in the context of ongoing family fraction particularly with his father. Patient states he has no control in his life although presents in a manner that is highly dependent on others for his needs. Patient quickly reconstituted denying any suicidal ideation and denying any mood symptoms during his admission and was continued on his home medication which he tolerated well although per chart review and patient's interview, states that he had not been compliant with his medication for quite some time stating that he forgets to take his medication. He denies any significant impairment during these time periods but does report feeling better when he does remember to take his medication. Patient participated in unit milieu with no reports of any behavioral disturb ances. Patient was compliant with his medication during his hospital stay with no reports of any medication side effects. During this hospital stay, social service agency director had discussed with patient and patient's father about going to an R[facility] in the financial implications of finds that the patient receives for disability with regards to being placed in RCF as well as the possibility of discharging prior to being accepted to an R[facility]. He was not suicidal and was not endorsing any active psychiatric symptoms at the time of discharge and did not appear to pose an imminent threat of harm to self or others. Low to moderate risk of harm to self given no current suicidal ideation and no endorsement of active psychiatric symptoms although patient's risk may be elevated if he continues to demonstrate poor coping strategies or pursues more harmful means of self-harm which has not been consistent with his past behavior. Risk mitigation included psychiatric hospitalization for observation for any persisting suicidal ideation or behavior, medication stabilization, discussion about use of more adaptive coping strategies in the context of his ongoing life stressors. Patient was able to communicate his understanding of the need to be more compliant with his medication, medication management as well as need for therapy targeting the development of more adaptive coping strategies given ongoing family stressors in order to further mitigate his risk of harm to self and others. Involuntary Hold Information 96 Hour Hold: 96 Hour Involuntary Admission: No Mental Status Exam MSE Comments: Appears stated age, unkempt hair, wearing hospital scrubs, initially lying down but sits up for interview, good eye contact, polite, interactive Psychomotor activity is neither increased nor decreased, no agitation Speech is normal rate and volume, spontaneous, clear articulation, not pressured I feel okay, congruent affect, not labile Alert and oriented to person, place, time, situation Intellectual functioning appears to be average based on vocabulary, interview Memory and concentration appear to be intact per interview Thought process, linear, no flight of ideas, no looseness of associations Thought content, no delusions, no hallucinations, no suicidal or homicidal ideation Insight and judgment appear to be fair to intact Discharge Data Vitals: Last Vital Signs Temp 98.6 F 09/01/20 06:00 Pulse 62 09/01/20 06:00 Resp 16 09/01/20 06:00 BP 104/74 09/01/20 06:00 Pulse Ox 97 09/01/20 06:00 Discharge Plan Discharge Patient Disposition: Home Condition: Stable Prescriptions: Continued ibuprofen 200 mg Tablet 400 mg PO PRN RF: 0 topiramate [Topamax] 50 mg Tablet 50 mg PO BID RF: 0 bupropion HCl 150 mg Tablet Extended Release 24 Hr 150 mg PO DAILY 30 Days Qty: 30 RF: 1 fluoxetine 10 mg Capsule 20 mg PO DAILY 30 Days Qty: 30 RF: 1 aspirin 325 mg Tablet 650 mg PO PRN RF: 0 Ritalin 5 mg Tablet 5 mg PO BID RF: 0 Migraine Relief 250-250-65 mg Tablet 2 tab PO PRN RF: 0 risperidone 0.5 mg Tablet,Disintegrating 0.5 mg PO PRN RF: 0 oxcarbazepine 300 mg tablet 150 mg PO BID RF: 0 aripiprazole 10 mg tablet 10 mg PO DAILY RF: 0 Discharge Orders: Discharge Order (Routine); Ordered 09/01/20 Ordered By: Serafin Chau Referrals: Jen Cervantes PMHNP [Staff Physician] - 09/19/20 2:00 pm Fracisco Perez MD [Primary Care Provider] - Discharge Diet: Regular Discharge Activity: Resume usual activity Patient Instructions: Opioid Safety Discharge Attestations NPU Time Spent in Discharge Care*: greater than 30 min Status at Discharge: Cognitive status at discharge: cognitively intact , Behavioral status at discharge: cooperative , Functional status at discharge: independent ambulation Overall status at discharge: patient is back to baseline Coding Level of Care Code Acute Chg FW DC note Diagnoses Suicidal ideation R45.851 Autism spectrum disorder F84.0 Attention-deficit hyperactivity disorder, combined type F90.2 Post-traumatic stress disorder, chronic F43.12 Borderline personality disorder F60.3
[2020-09-01 10:35] VITALS: BP 104/74; PULSE 62; RESP 16; TEMP 37; O2SAT 97
== END 2020-09-01 16:05 | disposition home or self-care (01) | DRG 883 ==
LOC: ER 16:30 → NP 16:54
PROVIDERS: Admitting Provider Psychiatry & Neurology Psychiatry; Emergency Provider Family Medicine; PCP Family Medicine; Visit Provider Psychiatry & Neurology Psychiatry
DX: F63.81 Intermittent explosive disorder (principal); R45.851 Suicidal ideations; F90.2 Attention-deficit hyperactivity disorder, combined type; F60.3 Borderline personality disorder; F91.9 Conduct disorder, unspecified; F43.12 Post-traumatic stress disorder, chronic; F84.0 Autistic disorder; Z63.8 Other specified problems related to primary support group; Z62.820 Parent-biological child conflict
CPT/HCPCS: 80053; 80307; 81001; 85025; 99285; G0378

== ENCOUNTER → 2020-11-23 08:08 | Outpatient (BNVA) | payer MEDICAID, SELFPAY ==
[2019-12-08 10:33] VITALS: BP 139/85; BMI 33.7
== END ==
PROVIDERS: PCP Family Medicine; Visit Provider Nurse Practitioner
DX: F90.2 Attention-deficit hyperactivity disorder, combined type (principal); F43.12 Post-traumatic stress disorder, chronic; F60.3 Borderline personality disorder; F91.2 Conduct disorder, adolescent-onset type
CPT/HCPCS: 99214

== ENCOUNTER → 2021-02-01 08:18 | Outpatient (BNVA) | payer MEDICAID, SELFPAY ==
[2019-12-08 10:33] VITALS: BP 139/85; BMI 33.7
== END ==
PROVIDERS: PCP Family Medicine; Visit Provider Nurse Practitioner
DX: F90.2 Attention-deficit hyperactivity disorder, combined type (principal); F43.12 Post-traumatic stress disorder, chronic; F60.3 Borderline personality disorder; F91.2 Conduct disorder, adolescent-onset type
CPT/HCPCS: 99214

== ENCOUNTER → 2021-03-13 07:45 | Outpatient (BNVA) | payer MEDICAID, SELFPAY ==
[2019-12-08 10:33] VITALS: BP 139/85; BMI 33.7
== END ==
PROVIDERS: PCP Family Medicine; Visit Provider Nurse Practitioner
DX: F90.2 Attention-deficit hyperactivity disorder, combined type (principal); F43.12 Post-traumatic stress disorder, chronic; F60.3 Borderline personality disorder; F91.2 Conduct disorder, adolescent-onset type
CPT/HCPCS: 99214

== ENCOUNTER → 2021-04-10 08:01 | Outpatient (BNVA) | payer MEDICAID, SELFPAY ==
[2019-12-08 10:33] VITALS: BP 139/85; BMI 33.7
== END ==
PROVIDERS: PCP Family Medicine; Visit Provider Nurse Practitioner
DX: F60.3 Borderline personality disorder (principal); F43.12 Post-traumatic stress disorder, chronic; F90.2 Attention-deficit hyperactivity disorder, combined type; F91.2 Conduct disorder, adolescent-onset type
CPT/HCPCS: 99214

== ENCOUNTER → 2021-05-23 07:28 | Outpatient (BNVA) | payer MEDICAID, SELFPAY ==
[2019-12-08 10:33] VITALS: BP 139/85; BMI 33.7
== END ==
PROVIDERS: PCP Family Medicine; Visit Provider Nurse Practitioner
DX: F60.3 Borderline personality disorder (principal); F43.12 Post-traumatic stress disorder, chronic
CPT/HCPCS: 99214

== ENCOUNTER → 2021-06-06 11:12 | Outpatient (BNVA) | payer MEDICAID, SELFPAY ==
[2019-12-08 10:33] VITALS: BP 139/85; BMI 33.7
== END ==
PROVIDERS: PCP Family Medicine; Visit Provider Counselor Mental Health
DX: F43.12 Post-traumatic stress disorder, chronic (principal)
CPT/HCPCS: 90834

== ENCOUNTER → 2021-06-15 07:56 | Outpatient (BNVA) | payer MEDICAID, SELFPAY ==
[2019-12-08 10:33] VITALS: BP 139/85; BMI 33.7
== END ==
PROVIDERS: PCP Family Medicine; Visit Provider Nurse Practitioner
DX: F43.12 Post-traumatic stress disorder, chronic (principal); F60.3 Borderline personality disorder
CPT/HCPCS: 99215

== ENCOUNTER → 2021-07-13 07:25 | Outpatient (BNVA) | payer MEDICAID, SELFPAY ==
[2019-12-08 10:33] VITALS: BP 139/85; BMI 33.7
== END ==
PROVIDERS: PCP Family Medicine; Visit Provider Nurse Practitioner
DX: F43.12 Post-traumatic stress disorder, chronic (principal); F60.3 Borderline personality disorder
CPT/HCPCS: 99214

== ENCOUNTER 2021-08-03 13:06 | Outpatient (CLI) | payer MEDICARE, MEDICAID, SELFPAY ==
[2019-12-08 10:33] VITALS: BP 139/85; BMI 33.7
--- NOTE | 2021-08-03 13:17 | CT_ITS ---
WS: [id number] CT NECK TECHNIQUE: Noncontrast CT of the neck with coronal and sagittal reformatted images. CLINICAL INFORMATION: LOCALIZED SWELLING,MASS LUMP,NECK COMPARISON: None. DLP: 307.[address] scans at [facility] use at least one of these dose optimization techniques: automated e xposure control; mA and/or kV adjustment per patient size (includes targeted exams where dose is matc hed to clinical indication); or iterative reconstruction. FINDINGS: Area of interest marked by BB in the RIGHT midneck. In the RIGHT neck there are multiple enlarged cervical lymph nodes the largest level 2 posterior to t he submandibular gland and just anterior to the sternocleidomastoid. This measures approximately 2.2 x 1.4 x 2.6 cm suspicious for metastatic disease. Additional enlarged RIGHT level 2, 3 posterior tria ngle and level 4 lymph nodes on the RIGHT. This extends into the lower neck on the RIGHT. Prominent R IGHT supraclavicular lymph nodes. A few prominent suspicious LEFT level 2 cervical chain lymph nodes Mastoid air cells are well aerated. Large retention cyst or polyp LEFT maxillary sinus measuring 2.8 x 2.2 CM. Normal parapharyngeal fat. Normal noncontrast palatine tonsils. Tongue base appears normal. Normal parotid glands and submandibular glands. Thickening of the RIGHT platysma. Slight induration along the RIGHT platysma adjacent to the parotid gland. Straightening of the normal cervical lordosis. Partially visualized lung apices are well aerated. Sli ghtly heterogeneous thyroid gland. CT/CT neck wo con [id number] IMPRESSION: 1. Enlarged RIGHT cervical masslike lymphadenopathy level 2 posterior to the s ubmandibular gland and anterior to the sternocleidomastoid measuring 2.2 x 1.4 x 2.6 cm suspicious for metastatic disease. Recommend ENT and oncology consulta tion. 2. Numerous additional enlarged RIGHT cervical chain lymph nodes involving lev el 2, level 3, level 4, and posterior triangle. This extends into the RIGHT sup raclavicular region. 3. A few slightly enlarged LEFT level 2 cervical lymph nodes. 4. Salivary glands appear normal. 5. No visualized supraglottic or glottic mass on this noncontrast examination. 6. Retention cyst or polyp LEFT maxillary sinus measuring 2.2 x 2.8 cm.
== END 2021-08-03 13:07 | disposition home or self-care (01) ==
LOC: RAD 13:12
PROVIDERS: PCP Family Medicine; Visit Provider Nurse Practitioner Family
DX: R22.1 Localized swelling, mass and lump, neck (principal)
CPT/HCPCS: 70490

== ENCOUNTER → 2021-08-08 07:07 | Outpatient (BNVA) | payer MEDICARE, MEDICAID, SELFPAY ==
[2019-12-08 10:33] VITALS: BP 139/85; BMI 33.7
== END ==
PROVIDERS: PCP Family Medicine; Visit Provider Nurse Practitioner
DX: F43.12 Post-traumatic stress disorder, chronic (principal); F60.3 Borderline personality disorder
CPT/HCPCS: 99214

== ENCOUNTER → 2021-09-12 10:31 | Outpatient (BNVA) | payer MEDICARE, MEDICAID, SELFPAY ==
[2019-12-08 10:33] VITALS: BP 139/85; BMI 33.7
== END ==
PROVIDERS: PCP Family Medicine; Referring Provider Nurse Practitioner Family; Visit Provider Otolaryngology
DX: R59.0 Localized enlarged lymph nodes (principal); R63.4 Abnormal weight loss; Z68.37 Body mass index [BMI] 37.0-37.9, adult
CPT/HCPCS: 31575; 99205

== ENCOUNTER 2021-09-21 07:32 | Day surgery (SDC) | payer MEDICARE, MEDICAID, SELFPAY ==
[2019-12-08 10:33] VITALS: BP 139/85; BMI 33.7
[2021-09-20 14:35] VITALS: BMI 36.2
[2021-09-21] VITALS (9 sets, daily range): BP systolic 100–139; BP diastolic 43–95; PULSE 70–91; RESP 16–20; TEMP 36.1; O2SAT 95–97
[2021-09-21] MEDS: sodium chloride 0.9% 1,000 ML 30 ML IV (08:41)
--- NOTE | 2021-09-21 09:20 | W.PM.OPSUD ---
Surgery/Procedure H&P Update DATE OF PROCEDURE: September 21, 2021 DATE H&P PERFORMED: 09/12/21 H&P UPDATE INFORMATION: I have reviewed H&P completed within last 30 days, I have examined patient prior to procedure and No changes to prior documentation CHANGES TO PREVIOUS DOCUMENTATION: No changes PREOP DIAGNOSIS: Right neck mass PRIMARY INDICATION FOR PROCEDURE: Right neck mass PLANNED PROCEDURE: Operation Date: 09/21/21 09:10 Proposed Procedures p Open Excisional Biopsy of right neck mass [id number],R63.4(Not Applicable) - Homar Flood MD
--- NOTE | 2021-09-21 09:24 | ANES.PREANE2 ---
Pre-Anesthetic Assessment Height/Weight: Height 1.8 m Weight 117.934 kg Preop Diagnosis: Right neck mass Operation Date: 09/21/21 09:10 Proposed Procedures p Open Excisional Biopsy of right neck mass [id number],R63.4(Not Applicable) - Homar Flood MD Familial anesthetic complications: none Was Beta Souleymane taken within 24 hours: N/A Was Clonidine taken within 24 hours: N/A Last intake: Intake Last Liquid Date 09/20/21 Last Liquid Time 18:00 Last Solid Date 09/20/21 Last Solid Time 16:00 Social No alcohol and No tobacco Exam alert, oriented x 3, clear to auscultation bilaterally and regular rate & rhythm Airway Submandibular: within normal limits Cervical ROM: within normal limits Mallampati: Class II Dentition: full Pulmonary Asthma Metabolic Morbid Obesity Neuropsych Anxiety and Depression Borderline Anesthetic Plan ASA status: 2 Anesthesia: General Medications/Allergies Home Medications Medication Instructions Recorded Confirmed Last Taken Type ibuprofen 200 mg tablet 400 mg PO PRN 02/12/20 09/21/21 09/19/21 History aspirin 325 mg tablet 650 mg PO PRN 08/27/20 09/21/21 09/19/21 History [id number] 250 2 tab PO PRN 08/27/20 09/20/21 Unknown History mg-250 mg-65 mg tablet (Migraine Relief) duloxetine 60 mg capsule,delayed 60 mg PO DAILY #30 cap 08/08/21 09/21/21 09/20/21 Rx release (Cymbalta) Allergies Allergy/AdvReac Type Severity Reaction Status Date / Time lithium Allergy Unknown Unknown Verified 09/12/21 11:01 coconut oil AdvReac Intermediate He stated Verified 09/12/21 11:01 he turned red. nutmeg seasoning Allergy Unknown Unknown Uncoded 09/12/21 11:01 Mice AdvReac Severe He stated Uncoded 09/12/21 11:01 he got hives and couldn't breathe Current Medications Generic Name Dose Route Start Last Admin Trade Name Freq PRN Reason Stop Dose Admin Sodium Chloride 1,000 mls @ 30 mls/hr 09/21/21 07:45 09/21/21 08:41 Sodium Chloride 0.9% IV 09/22/21 07:44 30 mls/hr .Q24H ERIK Administration PFSH Anesthesia Medical History Attention-deficit hyperactivity disorder, combined type Borderline personality disorder Chronic post-traumatic stress disorder Conduct disorder, adolescent-onset type Post-traumatic stress disorder, chronic Psychiatric care Surgical History Hx of hernia repair Family History Other Dementia Diabetes Hypertension Lung disease Psychiatric illness Social History Smoking and tobacco status: never smoked Second hand smoke exposure: Yes Alcohol intake: never Adopted: No Caregiver/support person: No Lives independently: Yes Household members: family Housing: House Marital status: Single Number of children: 0 Number of grandchildren: 0 Highest education level completed: High School Graduate service: No Current occupational status: student Current occupational exposures/hazards: No Pets and animals: Yes Pets & animals: cat(s) and dog(s) History of recent travel: No Leisure activites: art, reading and other Leisure activities details: video games Sexually active: No Current gender identity: Male Sun/Congregational: Other Special sun needs: No Agree to transfusion: Yes Financial difficulty paying for basics: Not Very Hard Data Anesthesia Cardiac Studies: No Data to Display
[2021-09-21] MEDS: neomycin-poly-bacitracin oint 28 gm 1 APPLIC TOPICAL (09:55)
--- NOTE | 2021-09-21 10:47 | PM.OP ---
Operative Report Date of procedure: September 21, 2021 Pre-op diagnosis: Preop Diagnosis Right neck mass Post-op diagnosis: Frozen section consistent with possible metastatic thyroid cancer. Defer to frozen. Post-op findings: Mass removed from right neck consistent with lymph node measured 3 x 2 x 2 cm. Dark purple in color. Firm architecture. Procedure done: Excision of right neck mass Implants: Quarter inch [place] drain Specimens removed/disposition: Right neck level 2 lymph node. 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 Surgeon: Homar Flood MD Anesthesia: General and Local Estimated blood loss: 10 mL Complications: No complications encountered Findings: Patient has had a right neck mass enlarged over several months. He has had associated weight loss. The patient had a CT scan which showed multiple level of lymph nodes which appeared to be in level 2 through 4 and level 3 as well on the right side and scattered lymphadenopathy on the left side as well. Patient is going to undergo excision of right neck mass for diagnostic purposes. CT scan showed the largest mass to be approximately 3.5 x 2.5 x 2 cm. Brief History: 20-year-old male patient has had enlarging right neck mass for several months with weight loss. CT scan showed multiple right and left neck masses. Patient to undergo excision of the largest of the neck masses on the right side today under general anesthesia. The procedure its risks and complications were explained in detail. These risks included bleeding infection numbness scarring swelling bruising recurrence need for additional treatment and more serious risks associated with anesthesia. With these things understood informed consent was granted and witnessed. Procedure: Description of procedure: The patient was placed on the operating table in supine position. Adequate general endotracheal tube anesthesia was obtained. A timeout was accomplished identifying the patient date of plan procedure allergies fire risk and medications given. With all in agreement the procedure continued. The patient was repositioned from a supine position to a semirecumbent position. A shoulder roll was placed under the shoulders. Head was dropped approximately 10 degrees and supported appropriately. This exposed enough of the neck to proceed with the surgery. En the site was noted. The neck was cleansed with alcohol. The mass was identified on palpation and a curvilinear incision pattern was outlined and infiltrated with local utilizing 1.7 mL of 2% Xylocaine with 1-100,000 epinephrine. The patient was then prepped and draped in usual fashion. A marking pen was used to outline the actual incision planned. The cut mode of the Bovie was used to cut down through the skin and subcutaneous fat and through the platysma muscle. Then dissection was carried down to the sternocleidomastoid muscle anterior or leading edge and then the mass was found just anterior to the anterior edge. Careful dissection was carried out from inferior lateral and superior. It was noted that it appeared as if it was adherent to nearby musculature and near the great vessels. It did not appear as if the great vessels were actually adherent to the mass. Once the mass was excised it was sent to pathology for frozen section. The pathology returned as containing papillary cells from the thyroid. It was concerned that this was metastatic thyroid cancer as opposed to ectopic thyroid. At this point the decision was made to defer to permanent section. The wound was irrigated with sterile water and with no active bleeding identified the platysma layer was closed primarily with the subcutaneous layer. This was done with interrupted 4-0 chromic suture. Medially/anteriorly 1/4 inch [place] drain was placed to the depths and stapled in place to the skin. Then the skin was closed using yung. The area was cleansed. Neosporin ointment was applied. Fluffs were applied. The drapes were removed. 2 Kerlix rolls were then placed appropriately around the neck with pressure and to catch any discharge from the surgical defect. The patient tolerated the procedure well and was returned to anesthesia for wake-up and extubation. He was taken to recovery in stable condition and his estimated blood loss for the procedure was 10 mL. He arrived in recovery in stable condition.
[2021-09-21] MEDS: ondansetron 2 mg/ML SDV 2 mL 4 MG IVP (11:47)
[2021-09-21] MEDS: oxyCODONE-APAP 5-325 mg Tablet 1 TAB PO (12:02)
--- NOTE | 2021-09-21 14:54 | ANE.PACU2 ---
Inpatient post-anesthesia follow up: Airway intact: Yes Vital signs: Temperature 97.0 F Pulse Rate 78 Respiratory Rate 18 Blood Pressure 133/95 Pulse Oximetry 96 Oxygen Delivery Me thod Room Air Oxygen Flow Rate 7 Fraction of Inspir ed Oxygen Hydration adequate: Yes Nausea and vomiting: No Pain level: 3 Mental status: Baseline
== END 2021-09-21 12:16 | disposition home or self-care (01) ==
PROVIDERS: PCP Family Medicine; Visit Provider Otolaryngology
PROC: (CPT 21555; principal; 2021-09-21 09:10)
DX: C73 Malignant neoplasm of thyroid gland (principal); J45.909 Unspecified asthma, uncomplicated; F41.9 Anxiety disorder, unspecified; F32.9 Major depressive disorder, single episode, unspecified
CPT/HCPCS: 21555; 88309; 88331; J1100; J2405; J2704; J3010; J3490; J7030

== ENCOUNTER → 2021-09-25 13:03 | Outpatient (BNVA) | payer MEDICARE, MEDICAID, SELFPAY ==
[2019-12-08 10:33] VITALS: BP 139/85; BMI 33.7
== END ==
PROVIDERS: PCP Family Medicine; Visit Provider Otolaryngology
DX: Z48.89 Encounter for other specified surgical aftercare (principal)
CPT/HCPCS: 99024

== ENCOUNTER → 2021-09-29 09:38 | Outpatient (BNVA) | payer MEDICARE, MEDICAID, SELFPAY ==
[2019-12-08 10:33] VITALS: BP 139/85; BMI 33.7
== END ==
PROVIDERS: PCP Family Medicine; Visit Provider Otolaryngology
DX: C73 Malignant neoplasm of thyroid gland (principal)
CPT/HCPCS: 99024

== ENCOUNTER → 2021-10-10 15:10 | Outpatient (BNVA) | payer MEDICARE, MEDICAID, SELFPAY ==
[2019-12-08 10:33] VITALS: BP 139/85; BMI 33.7
== END ==
PROVIDERS: PCP Family Medicine; Visit Provider Otolaryngology
DX: R59.0 Localized enlarged lymph nodes (principal); F90.2 Attention-deficit hyperactivity disorder, combined type; F84.0 Autistic disorder; C73 Malignant neoplasm of thyroid gland
CPT/HCPCS: 99205; 99215

== ENCOUNTER → 2021-10-12 08:05 | Outpatient (BNVA) | payer MEDICARE, MEDICAID, SELFPAY ==
[2019-12-08 10:33] VITALS: BP 139/85; BMI 33.7
== END ==
PROVIDERS: PCP Family Medicine; Referring Provider Otolaryngology; Visit Provider Internal Medicine
DX: C73 Malignant neoplasm of thyroid gland (principal); R59.0 Localized enlarged lymph nodes
CPT/HCPCS: 99204

== ENCOUNTER 2021-10-19 08:16 | Inpatient (IN) | payer MEDICARE, MEDICAID, SELFPAY ==
[2019-12-08 10:33] VITALS: BP 139/85; BMI 33.7
[2021-10-18 10:51] VITALS: BMI 32.8
[2021-10-19] VITALS (15 sets, daily range): BP systolic 112–159; BP diastolic 61–93; PULSE 78–113; RESP 14–18; TEMP 36.4–37.4; O2SAT 91–98
[2021-10-19] MEDS: sodium chloride 0.9% 1,000 ML 30 ML IV (07:50)
--- NOTE | 2021-10-19 08:00 | W.PM.OPSUD ---
Surgery/Procedure H&P Update DATE OF PROCEDURE: October 19, 2021 DATE H&P PERFORMED: 10/10/21 H&P UPDATE INFORMATION: I have reviewed H&P completed within last 30 days, I have examined patient prior to procedure and No changes to prior documentation CHANGES TO PREVIOUS DOCUMENTATION: No changes reported PREOP DIAGNOSIS: Thyroid papillary carcinoma with right neck metastasis PRIMARY INDICATION FOR PROCEDURE: Metastatic thyroid papillary carcinoma with multiple right neck samy metastasis PLANNED PROCEDURE: Operation Date: 10/19/21 08:50 Proposed Procedures p Total thyroidectomy Right sided neck dissection [id number],C73(Not Applicable) - Homar Flood MD s Neck Dissection(Right) - Hmoar Flood MD
--- NOTE | 2021-10-19 08:10 | ANES.PREANE2 ---
Pre-Anesthetic Assessment Height/Weight: Height 1.8 m Weight 106.594 kg Temp Pulse Resp BP Pulse Ox 97.5 F L 90 18 139/88 98 10/19/21 07:34 10/19/21 07:34 10/19/21 07:34 10/19/21 07:34 10/19/21 07:34 Preop Diagnosis: Thyroid papillary carcinoma with right neck metastasis Operation Date: 10/19/21 08:50 Proposed Procedures p Total thyroidectomy Right sided neck dissection [id number],C73(Not Applicable) - Homar Flood MD s Neck Dissection(Right) - Homar Flood MD Familial anesthetic complications: none Was Beta Souleymane taken within 24 hours: N/A Was Clonidine taken within 24 hours: N/A Last intake: Intake Last Liquid Date 10/18/21 Last Liquid Time 22:00 Last Solid Date 10/18/21 Last Solid Time 22:00 Social No alcohol and No tobacco Exam alert, oriented x 3, clear to auscultation bilaterally and regular rate & rhythm Airway Submandibular: within normal limits Cervical ROM: within normal limits Mallampati: Class II Dentition: full Metabolic Morbid Obesity Neuropsych Anxiety, Bipolar and Depression Anesthetic Plan ASA status: 2 Anesthesia: General Medications/Allergies Home Medications Medication Instructions Recorded Confirmed Last Taken Type ibuprofen 200 mg tablet 400 mg PO PRN 02/12/20 10/19/21 10/17/21 History aspirin 325 mg tablet 650 mg PO PRN 08/27/20 10/18/21 10/17/21 History ukqzvke-cykzynmpkbeeg-zqmyzuki 250 2 tab PO PRN 08/27/20 10/19/21 10/17/21 History mg-250 mg-65 mg tablet (Migraine Relief) duloxetine 60 mg capsule,delayed 60 mg PO DAILY #30 cap 08/08/21 10/19/21 10/18/21 Rx release (Cymbalta) Allergies Allergy/AdvReac Type Severity Reaction Status Date / Time lithium Allergy Unknown Unknown Verified 10/19/21 07:33 coconut oil AdvReac Intermediate He stated Verified 10/19/21 07:33 he turned red. nutmeg seasoning Allergy Unknown Unknown Uncoded 10/19/21 07:33 Mice AdvReac Severe He stated Uncoded 10/19/21 07:33 he got hives and couldn't breathe Current Medications Generic Name Dose Route Start Last Admin Trade Name Vel PRN Reason Stop Dose Admin Sodium Chloride 1,000 mls @ 30 mls/hr 10/19/21 07:30 10/19/21 07:50 Sodium Chloride 0.9% IV 10/20/21 07:29 30 mls/hr .Q24H ERIK Administration PFSH Anesthesia Medical History Attention-deficit hyperactivity disorder, combined type Borderline personality disorder Chronic post-traumatic stress disorder Conduct disorder, adolescent-onset type Post-traumatic stress disorder, chronic Psychiatric care Surgical History H/O neck surgery Hx of hernia repair Family History Other Dementia Diabetes Hypertension Lung disease Psychiatric illness Social History Smoking and tobacco status: never smoked Second hand smoke exposure: Yes Alcohol intake: never Adopted: No Caregiver/support person: No Lives independently: Yes Household members: family Housing: House Marital status: Single Number of children: 0 Number of grandchildren: 0 Highest education level completed: High School Graduate service: No Current occupational status: student Current occupational exposures/hazards: No Pets and animals: Yes Pets & animals: cat(s) and dog(s) History of recent travel: No Leisure activites: art, reading and other Leisure activities details: video games Sexually active: No Current gender identity: Male Sun/Lutheran: Other Special sun needs: No Agree to transfusion: Yes Financial difficulty paying for basics: Not Very Hard Data Anesthesia Cardiac Studies: No Data to Display
[2021-10-19] MEDS: ceFAZolin 3,000 MG in sodium chloride 0.9% (100 ml) 100 ML 200 MG IV (09:09)
--- NOTE | 2021-10-19 11:37 | SUR.OPER ---
1130 PT FAMILY UNABLE TO BE REACHED BY PHONE.
--- NOTE | 2021-10-19 11:38 | SUR.OPER ---
2450 PT FAMILY (ELENA) GIVEN UPDATE ON SURGERY PROGRESS BY PHONE.
[2021-10-19] MEDS: neomycin-poly-bacitracin oint 28 gm 1 APPLIC TOPICAL (12:43)
--- NOTE | 2021-10-19 13:13 | PM.OP ---
Operative Report Date of procedure: October 19, 2021 Pre-op diagnosis: Preop Diagnosis Thyroid papillary carcinoma with right neck metastasis Post-op diagnosis: Same Post-op findings: Metastasis in level 2 and 3 were fixed to the internal jugular vein and carotid artery. Otherwise a complete dissection was carried out from levels 5A and 2 and 3 and 4 and 6 into level 7 the specimens had to be into left thyroid lobe then right thyroid lobe then level 6/7 nodes. Then level 5A and 2 and 3 and 4 combined. 1 parathyroid gland preserved on right side. 2 preserved on left side. Recurrent nerves identified and preserved. Spinal accessory nerve identified and preserved. Hypoglossal nerve identified and preserved. Vagus nerve identified and preserved. Procedure done: Total thyroidectomy and expanded right modified radical neck dissection to include levels 5A and then down to 4 and inclusive of 6 into 7. Implants: Two quarter inch [place] drains placed. 1 to the depths of the right modified radical neck dissection extending superiorly to the accessory nerve. Other [place] extends from the right thyroidectomy defect. Specimens removed/disposition: Specimens for pathology were bilateral total thyroidectomy specimens and right modified radical neck dissection with extensions to 5 a 4 6 and upper 7 samy levels. Pathology: Previous pathology consistent with metastatic papillary thyroid carcinoma. No frozens done. All specimens for permanent section. Surgeon: Homar Flood MD Anesthesia: General Estimated blood loss: 100 mL Complications: No complications encountered Findings: Findings at the time of surgery were a 1 to 2 cm nodule in the lower pole of the right thyroid gland. No nodules palpated in the left thyroid. Multiple lymph nodes present in level 6 into level 7. Large lymph nodes level [address] well as 5 a. Brief History: 20-year-old male patient noted to have right neck swelling found to have metastatic papillary thyroid carcinoma on excisional biopsy. PET scan revealed right neck uptake as well as the right thyroid. Therefore the patient is being brought to the operating room at this time to undergo total thyroidectomy and extensive right modified radical neck dissection including levels 5A down to 4 and level 6 down to level 7. The procedure its risks and complications have been explained in detail. He and his father understand. Risks include bleeding infection numbness scarring swelling bruising recurrence need for additional treatment including thyroid ablation. Other risks include injury to nerves serving the larynx and tongue and shoulder and lower face. All these areas could be weak or paralyzed and that could be temporary or permanent. Voice changes possible. More serious risks associated with the surgery would be anesthetic risks as well as heart attack stroke or not surviving the surgery. With these things understood informed consent was granted and witnessed. Procedure: Description of procedure: The patient was placed on the operating table in the supine position. Adequate general endotracheal tube anesthesia was obtained. He was given Ancef IV for prophylaxis and he had a [place]ak[place] catheter placed to his bladder. The patient was then prepped and positioned for the appropriate procedure. He had shoulder rolls under the shoulders. He had good support of his head. He had his shoulders taped to an inferior position so that it gave better access to his neck for the procedures. Signed the site was noted. The patient was prepped and draped in usual fashion. Timeout was accomplished identifying the patient date of plan procedure allergies fire risk and medications given. With all in agreement the procedure continued. A marking pen was used to outline a curvilinear incision extending from the posterior aspect of the upper sternocleidomastoid muscle on the right side down along the anterior border the sternocleidomastoid muscle and then down into the lower skin crease line across the midline for access to the thyroid gland. The incision was created with the cut mode of the Bovie on low power. This was carried down through the subcutaneous tissue adipose tissue and platysma muscle. A subplatysmal flap was raised superiorly over this entire flap length. With that accomplished and with smaller vessels bipolar cauterized and larger vessels clipped and cut the dissection was carried down through the central or median with a between the strap muscles and then careful dissection around the right thyroid gland. Inferior thyroid artery identified and preserved extending and supplying the parathyroid glands. The recurrent nerve was identified in its usual location and extended to the insertion. The superior parathyroid gland on this right side was taken with the specimen. The dissection was carried up to the superior vessels and the suspensory ligament. These were cauterized or clipped and cut. Care was taken to identify and preserve the superior laryngeal nerve external branch. Then the dissection was carried over the trachea removing the very small isthmus. At this point for easy access to the left gland I transected the isthmus on the left side. That was marked as a separate specimen. Then an identical procedure was performed to remove the left thyroid. No nodules were identified in the left side. The both parathyroid glands were preserved on the left side with vascular supply. After the left thyroid gland was excised dissection was carried down inferior to this because there were multiple visible nodes just inferior to the cricoid and extending down behind the manubrium of the sternum. Level 6 and upper part of level 7 dissection was carried out removing all visible nodes and some adipose tissue and a portion of thymus. Bleeding was controlled with bipolar cautery. Attention was then turned to completion of the right modified radical neck dissection. The flap was raised off the sternocleidomastoid muscle raising it up to near the mastoid tip. The previous excision site and level 2/3 was scarred as expected. Scarring was taken down and dissection carried around the anterior edge of the sternocleidomastoid muscle and then to the medial side where careful dissection was carried out superiorly to find the spinal accessory nerve in its usual location. This was identified and preserved. Dissection was carried back posterior and superior to the 11th nerve removing the fat pad and neuro once in that area down to the deep neck musculature. There was also a large node that extended posterior to this into level 5A that was excised as well. Then dissection was carried down into levels 2 3 and 4 removing the broad field of fat and nodes down to the rootlets in the deep musculature. Dissection was then carried out anterior to this 2 areas at the internal jugular vein. It was in this location again that the nodes showed extrinsic involvement of the jugular vein and carotid artery region. As careful a dissection it is I could perform could not remove remove the tumor in this location. I took it as close as I could but knowing that there would be thyroid ablation accomplished postoperatively I left some tumor at that location. Then the modified radical neck dissection was carried out in the routine fashion completing the rest of it except not being able to dissect around the entire contents of the carotid sheath. Dissection was carried down to the omohyoid musculature and then anteriorly under the strap muscles. Specimens were sent separately with a level 5 node and then the level to 3 and 4 nodes. None a level 6 into level 7 was a separate specimen along with the 2 separate right and left thyroid glands. Irrigation with sterile water was accomplished. No active bleeding was encountered. There was mild ooze at the depths of the level 6 and 7 dissection. Surgicel was placed at that location as well as on both sides at the junction of the recurrent nerves entering the larynx and superiorly overlying the 11th cranial nerve on the right side. 2 [place] drains were placed 1 to the depths of the neck dissection on the right side up to the 11th nerve area and the second 1 to the right side of the thyroidectomy. These were stapled to the lower neck. Then the wound/incision was closed with multiple layers using interrupted 4-0 chromic to close the platysma layer and then the subcutaneous layer and then the skin was closed with yung. The area was cleansed. Drapes were removed. Neosporin ointment was applied over the incision and drains. Then fluffs were placed over the entire incision area and 2 Kerlix rolls were rolled around the neck with pressure and taped in place. The patient tolerated the procedure well had an estimated blood loss of 100 mL and arrived in recovery in stable condition.
--- NOTE | 2021-10-19 13:34 | PM.OP ---
Operative Report Date of procedure: October 19, 2021 Pre-op diagnosis: Preop Diagnosis Thyroid papillary carcinoma with right neck metastasis Preop Diagnosis Thyroid papillary carcinoma with right neck metastasis
[2021-10-19] MEDS: ondansetron 2 mg/ML SDV 2 mL 4 MG IVP ×2 (14:15→15:21)
--- NOTE | 2021-10-19 15:20 | SUR.PHASEII ---
15:20 re-medicated for nausea.
[2021-10-19] MEDS: scopolamine 1.5 Patch 1 PATCH TRANSDERMA (16:08)
--- NOTE | 2021-10-19 16:08 | SUR.PHASEII ---
16:08 medicated with scopolamine patch per doctor Mendez.
--- NOTE | 2021-10-19 16:18 | ANE.PACU2 ---
Inpatient post-anesthesia follow up: Airway intact: Yes Vital signs: Temperature 98.4 F Pulse Rate 92 Respiratory Rate 18 Blood Pressure 152/86 Pulse Oximetry 94 Oxygen Delivery Me thod Nasal Cannula Oxygen Flow Rate 2 Fraction of Inspir ed Oxygen Hydration adequate: Yes Nausea and vomiting: Yes Pain level: 3 Mental status: Baseline
--- NOTE | 2021-10-19 16:35 | SUR.PHASEII ---
16:25 discharged in stable condition. no drainage noted on dressing. moderate relief of nausea./
== END 2021-10-19 16:25 | disposition home or self-care (01) | DRG 626 ==
LOC: OR 13:39 → MEDSURG 11-22 14:34
PROVIDERS: Admitting Provider Otolaryngology; PCP Family Medicine; Visit Provider Otolaryngology
PROC: 0GTK0ZZ Resection of Thyroid Gland, Open Approach (ICD-10-PCS; CPT 60240; principal; 2021-10-19 08:40)
PROC: 0GTK0ZZ Resection of Thyroid Gland, Open Approach (ICD-10-PCS; CPT 60254; 2021-10-19 08:40)
DX: C73 Malignant neoplasm of thyroid gland (principal); C77.0 Secondary and unspecified malignant neoplasm of lymph nodes of head, face and neck; E66.01 Morbid (severe) obesity due to excess calories; Z68.32 Body mass index [BMI] 32.0-32.9, adult
CPT/HCPCS: 60254; 51702; 88307; J0690; J1100; J1170; J2250; J2405; J2704; J2710; J3010; J3490; J7030

== ENCOUNTER → 2021-10-23 14:06 | Outpatient (BNVA) | payer MEDICARE, MEDICAID, SELFPAY ==
[2019-12-08 10:33] VITALS: BP 139/85; BMI 33.7
== END ==
PROVIDERS: PCP Family Medicine; Visit Provider Otolaryngology
DX: Z48.89 Encounter for other specified surgical aftercare (principal); C73 Malignant neoplasm of thyroid gland; C77.9 Secondary and unspecified malignant neoplasm of lymph node, unspecified; E89.0 Postprocedural hypothyroidism
CPT/HCPCS: 82310; 83970; 99024

== ENCOUNTER → 2021-10-27 10:47 | Outpatient (BNVA) | payer MEDICARE, MEDICAID, SELFPAY ==
[2019-12-08 10:33] VITALS: BP 139/85; BMI 33.7
== END ==
PROVIDERS: PCP Family Medicine; Visit Provider Otolaryngology
DX: Z48.89 Encounter for other specified surgical aftercare (principal); C73 Malignant neoplasm of thyroid gland; C77.9 Secondary and unspecified malignant neoplasm of lymph node, unspecified
CPT/HCPCS: 99024

== ENCOUNTER → 2021-10-30 14:30 | Outpatient (BNVA) | payer MEDICARE, MEDICAID, SELFPAY ==
[2019-12-08 10:33] VITALS: BP 139/85; BMI 33.7
== END ==
PROVIDERS: PCP Family Medicine; Visit Provider Otolaryngology
DX: C73 Malignant neoplasm of thyroid gland (principal); C77.9 Secondary and unspecified malignant neoplasm of lymph node, unspecified; E89.0 Postprocedural hypothyroidism
CPT/HCPCS: 82310; 83970; 84432; 84439; 84443; 86800; 99024; 99214

== ENCOUNTER → 2022-01-03 14:20 | Outpatient (BNVA) | payer MEDICARE, MEDICAID, SELFPAY ==
[2019-12-08 10:33] VITALS: BP 139/85; BMI 33.7
== END ==
PROVIDERS: PCP Family Medicine; Visit Provider Internal Medicine
DX: R63.4 Abnormal weight loss (principal); C73 Malignant neoplasm of thyroid gland; C77.9 Secondary and unspecified malignant neoplasm of lymph node, unspecified; E89.0 Postprocedural hypothyroidism; I10 Essential (primary) hypertension; Z68.37 Body mass index [BMI] 37.0-37.9, adult
CPT/HCPCS: 36415; 84432; 84439; 84443; 86800; 99214

== ENCOUNTER → 2022-03-07 14:56 | Outpatient (BNVA) | payer MEDICARE, MEDICAID, SELFPAY ==
[2019-12-08 10:33] VITALS: BP 139/85; BMI 33.7
== END ==
PROVIDERS: PCP Family Medicine; Visit Provider Internal Medicine
DX: R63.4 Abnormal weight loss (principal); C77.9 Secondary and unspecified malignant neoplasm of lymph node, unspecified; C73 Malignant neoplasm of thyroid gland; E89.0 Postprocedural hypothyroidism; I10 Essential (primary) hypertension; Z79.890 Hormone replacement therapy; Z68.38 Body mass index [BMI] 38.0-38.9, adult
CPT/HCPCS: 36415; 84432; 84439; 84443; 84480; 86800; 99215

== ENCOUNTER 2022-03-08 06:59 | Outpatient (CLI) | payer MEDICARE, MEDICAID, SELFPAY ==
[2019-12-08 10:33] VITALS: BP 139/85; BMI 33.7
--- NOTE | 2022-03-08 07:05 | US_ITS ---
WS: [id number] THYROID ULTRASOUND HISTORY: new enlarging neck mass with history of cancer, prior thyroidectomy. Known history of papill zeinab thyroid cancer. COMPARISON: PET CT 10/07/[address] 08/03/2021. Status post thyroidectomy. Abnormal lymph nodes along the cervical chain. The most significantly abno rmal lymph node is hypoechoic with loss of the normal fatty hilum and increased peripheral vascularit y. This lymph node is along the mid RIGHT cervical chain measuring 1.6 x 1.0 x 1.8 cm. There are are additional lymph nodes which are hypoechoic but smaller. There is a small hypoechoic nodule in the RI GHT thyroid bed which is probably a lymph node measuring 0.7 x 0.5 x 0.8 cm. Hypoechoic nodule or residual thyroid tissue in the LEFT thyroid bed measures 1.0 x 1.2 x 0.8 cm. The re are additional small LEFT cervical chain lymph nodes. These lymph nodes maintain a more normal sha pe than the RIGHT cervical chain lymph nodes. Fatty mirella persist. US/US thyroid 24720 IMPRESSION: 1. RIGHT cervical chain abnormal lymph nodes. The largest lymph node measures 1.6 x 1.0 x 1.8 cm in the mid cervical chain. This probably corresponds to the lymph node seen on the recent neck CT. 2. Status post thyroidectomy. Bilateral hypoechoic nodules within the thyroid bed. Differential includes residual thyroid tissue or lymph nodes. 3. LEFT cervical chain lymph nodes are more normal shape and size.
== END 2022-03-08 07:00 | disposition home or self-care (01) ==
LOC: RAD 06:59
PROVIDERS: PCP Family Medicine; Visit Provider Internal Medicine
DX: C77.9 Secondary and unspecified malignant neoplasm of lymph node, unspecified (principal); R22.1 Localized swelling, mass and lump, neck; E89.0 Postprocedural hypothyroidism; E04.1 Nontoxic single thyroid nodule
CPT/HCPCS: 76536

== ENCOUNTER → 2022-03-14 08:35 | Outpatient (BNVA) | payer MEDICARE, MEDICAID, SELFPAY ==
[2019-12-08 10:33] VITALS: BP 139/85; BMI 33.7
== END ==
PROVIDERS: PCP Family Medicine; Referring Provider Internal Medicine; Visit Provider Otolaryngology
DX: R59.0 Localized enlarged lymph nodes (principal)
CPT/HCPCS: 99213

== ENCOUNTER → 2022-04-09 13:16 | Outpatient (BNVA) | payer MEDICARE, MEDICAID, SELFPAY ==
[2019-12-08 10:33] VITALS: BP 139/85; BMI 33.7
== END ==
PROVIDERS: PCP Family Medicine; Visit Provider Otolaryngology
DX: C73 Malignant neoplasm of thyroid gland (principal); C77.9 Secondary and unspecified malignant neoplasm of lymph node, unspecified; E89.0 Postprocedural hypothyroidism; Z79.890 Hormone replacement therapy
CPT/HCPCS: 99215

== ENCOUNTER 2022-04-12 08:40 | Day surgery (SDC) | payer MEDICARE, MEDICAID, SELFPAY ==
[2019-12-08 10:33] VITALS: BP 139/85; BMI 33.7
[2022-04-11 10:19] VITALS: BMI 30.7
[2022-04-12] VITALS (12 sets, daily range): BP systolic 130–161; BP diastolic 63–92; PULSE 61–94; RESP 12–20; TEMP 36.1–36.4; O2SAT 94–99
--- NOTE | 2022-04-12 09:22 | P.ANESASSM_ITS ---
Pre-Anesthetic Assessment Height/Weight: Height 1.8 m Weight 99.79 kg Temp Pulse Resp BP Pulse Ox O2 Del Method 97.3 F L 61 16 130/92 97 04/12/22 08:56 04/12/22 08:56 04/12/22 08:56 04/12/22 08:56 04/12/22 08:56 04/12/22 09:05 Preop Diagnosis: Right neck masses with history of metastatic papillary thyroid carcinoma Operation Date: 04/12/22 10:40 Proposed Procedures p excision of right sided neck mass 27714,R59.0(Right) - Homar Flood MD Familial anesthetic complications: None Was Beta Souleymane taken within 24 hours: N/A Was Clonidine taken within 24 hours: N/A Last intake: Intake Last Liquid Date 04/11/22 Last Liquid Time 23:00 Last Solid Date 04/11/22 Last Solid Time 22:30 Social No alcohol and No tobacco Exam alert, oriented x 3, clear to auscultation bilaterally and regular rate & rhythm Airway Mallampati: Class II Dentition: full Comments: Comments: grade I view Mac 3.5 CV/HEM Hypertension Metabolic Morbid Obesity and Thyroid Disease (papillary thyroid carcinoma) Neuropsych autism Anesthetic Plan ASA status: 3 Anesthesia: General Risk of > 500 ml blood loss (7ml/kg in children): No Medications/Allergies Home Medications Medication Instructions Recorded Confirmed Last Taken Type aspirin 325 mg tablet 650 mg PO PRN pain 08/27/20 04/11/22 03/21/22 History lozxlie-flnryzrdsfvwl-onynvptj 250 2 tab PO PRN 08/27/20 04/11/22 03/20/22 History mg-250 mg-65 mg tablet (Migraine Relief) buspirone 7.5 mg tablet 7.5 mg PO TID #90 tabs 03/05/22 04/11/22 04/12/22 07:30 Rx levothyroxine 300 mcg tablet 300 mcg PO DAILY #90 tabs 03/08/22 04/11/22 04/12/22 07:30 Rx Allergies Allergy/AdvReac Type Severity Reaction Status Date / Time lithium Allergy Unknown Unknown Verified 04/11/22 10:14 coconut oil AdvReac Intermediate He stated Verified 04/11/22 10:14 he turned red. nutmeg seasoning Allergy Unknown Unknown Uncoded 04/09/22 13:56 Mice AdvReac Severe He stated Uncoded 04/09/22 13:56 he got hives and couldn't breathe PFSH Anesthesia Medical History Attention-deficit hyperactivity disorder, combined type Borderline personality disorder Chronic post-traumatic stress disorder Conduct disorder, adolescent-onset type Low income Post-traumatic stress disorder, chronic Psychiatric care Surgical History H/O neck surgery Hx of hernia repair Family History Other Dementia Diabetes Hypertension Lung disease Psychiatric illness Social History Smoking and tobacco status: never smoked Second hand smoke exposure: Yes Alcohol intake: never Adopted: No Caregiver/support person: No Lives independently: Yes Household members: family Housing: House Marital status: Single Number of children: 0 Number of grandchildren: 0 Highest education level completed: High School Graduate service: No Current occupational status: student Current occupational exposures/hazards: No Pets and animals: Yes Pets & animals: cat(s) and dog(s) History of recent travel: No Leisure activites: art, reading and other Leisure activities details: video games Sexually active: No Current gender identity: Male Sun/Cheondoism: Other Special sun needs: No Agree to transfusion: Yes Financial difficulty paying for basics: Not Very Hard Data Anesthesia Cardiac Studies: No Data to Display
[2022-04-12] MEDS: sodium chloride 0.9% 1,000 ML 30 ML IV (09:31)
[2022-04-12] MEDS: scopolamine 1.5 Patch 1 PATCH TRANSDERMA (09:31)
--- NOTE | 2022-04-12 11:19 | W.PM.OPSUD ---
Surgery/Procedure H&P Update DATE OF PROCEDURE: April 12, 2022 DATE H&P PERFORMED: 04/09/22 H&P UPDATE INFORMATION: I have reviewed H&P completed within last 30 days, I have examined patient prior to procedure and No changes to prior documentation CHANGES TO PREVIOUS DOCUMENTATION: No changes PREOP DIAGNOSIS: Right neck masses with history of metastatic papillary thyroid carcinoma PRIMARY INDICATION FOR PROCEDURE: Right neck mass with history of metastatic papillary thyroid carcinoma PLANNED PROCEDURE: Operation Date: 04/12/22 10:40 Proposed Procedures p excision of right sided neck mass [id number],R59.0(Right) - Homar Flood MD
[2022-04-12] MEDS: ceFAZolin 2,000 MG in sodium chloride 0.9% (plus) 50 ML 100 MG IV (11:29)
[2022-04-12] MEDS: neomycin-poly-bacitracin oint 28 gm 1 APPLIC TOPICAL (12:45)
--- NOTE | 2022-04-12 12:48 | P.OP_ITS ---
Operative Report Date of procedure: April 12, 2022 Pre-op diagnosis: Preop Diagnosis Right neck masses with history of metastatic papillary thyroid carcinoma Post-op diagnosis: Same Post-op findings: Approximately 2 cm encapsulated mass consistent with lymph node deep to sternocleidomastoid muscle right neck. Procedure done: Excision of right neck mass/lymph node for diagnostic purposes Implants: No implants Specimens removed/disposition: Right neck lymph node Pathology: Right neck lymph node sent fresh Surgeon: Homar Flood MD Anesthesia: General and Local Estimated blood loss: 15 mL Complications: No complications encountered Findings: Patient has a right upper mid neck mass deep to sternocleidomastoid muscle found subsequent to total thyroidectomy and neck dissection. He also had thyroid ablation done. Brief History: 21-year-old male patient had neck masses develop and biopsy of a submandibular region mass from the right side proved to be metastatic thyroid carcinoma. He subsequently underwent a total thyroidectomy with neck dissection on the right side. He had multiple positive lymph nodes for metastasis. He subsequently underwent thyroid ablation. Several months later he noticed a right neck mass developing and unfortunately did not seek attention quickly. He was seen by the document design specialist and then referred to me. He is now to undergo excision of this mass for diagnostic purposes and to determine if this is in fact recurrent metastatic disease other treatment will have to be determined. Being brought to the operating room at this time to undergo excision of this right central neck mass found on thyroid ultrasound. The procedure its risks and complications were explained in detail in the office setting. Patient understands that the risks include bleeding infection numbness scarring swelling bruising recurrence need for additional treatment as this is a diagnostic procedure and potential weakness of the shoulder region. With these things understood informed consent was granted and witnessed. Procedure: Description of procedure: The patient was placed on the operating table in the supine position. Adequate endotracheal tube anesthesia was obtained. The patient was repositioned into a semirecumbent position with his neck exposed on the right side and shoulder roll under the shoulders. Face was taped over to the left side for better exposure. Sign the site was noted. The area was cleansed with alcohol. 1.7 mL of 2% Xylocaine with 1-100,000 epinephrine was used to infiltrate subcutaneously. Then the patient was prepped and draped in usual fashion. A timeout was accomplished identifying the patient date of plan procedure allergies fire risk and medications given. With all in agreement the procedure continued. A marking pen was used to outline a 4 cm incision that was a continuation of his previous incision. The incision was created with low power cut mode of the needle tip Bovie. This was carried down to subcutaneous fat. Then dissection was carried out with a dissector and cutting with the Bovie. Dissection was carried down to the sternocleidomastoid muscle. Greater auricular nerve identified and preserved over the sternocleidomastoid muscle. The sternocleidomastoid muscle was split over the top of the mass itself and dissection was carried down to it. The mass was freed with dissection and bipolar cautery to close off any vessels. When the specimen was freed it was sent to pathology as a fresh specimen as a lymph node. The hemostasis was attained with bipolar cautery. No active bleeding was seen. It was irrigated with saline. No further bleeding was noted. The sternocleidomastoid muscle was closed together with interrupted 4-0 chromic suture. The subcutaneous layer was closed with interrupted 4-0 chromic suture. The skin was closed with skin yung. The area was cleansed. Neosporin ointment was applied over the incision and this was covered with a large Band-Aid. Drapes were removed and the patient was returned to anesthesia for wake-up and extubation. He tolerated the procedure well had an estimated blood loss of 15 mL and arrived in recovery in stable condition.
[2022-04-12] MEDS: meperidine 50 mg/mL INJ 12.5 MG IVP (13:18)
[2022-04-12] MEDS: ondansetron 2 mg/ML SDV 2 mL 4 MG IVP ×2 (13:22→13:34)
[2022-04-12] MEDS: metoclopramide 5 mg/mL SDV 2 mL 10 MG IVP (13:37)
--- NOTE | 2022-04-12 13:39 | PC.NURSE ---
AAO Small emesis of phlegm. Medicated
== END 2022-04-12 14:07 | disposition home or self-care (01) ==
PROVIDERS: PCP Family Medicine; Visit Provider Otolaryngology
PROC: (CPT 21555; principal; 2022-04-12 10:30)
DX: C73 Malignant neoplasm of thyroid gland (principal); I10 Essential (primary) hypertension; E66.01 Morbid (severe) obesity due to excess calories; Z68.30 Body mass index [BMI] 30.0-30.9, adult; F84.0 Autistic disorder
CPT/HCPCS: 21555; 88307; J0330; J0690; J1100; J1885; J2175; J2250; J2405; J2704; J2710; J2765; J3010; J3490; J7030

== ENCOUNTER → 2022-04-18 14:02 | Outpatient (BNVA) | payer MEDICARE, MEDICAID, SELFPAY ==
[2019-12-08 10:33] VITALS: BP 139/85; BMI 33.7
== END ==
PROVIDERS: PCP Family Medicine; Visit Provider Internal Medicine
DX: C77.9 Secondary and unspecified malignant neoplasm of lymph node, unspecified (principal); C73 Malignant neoplasm of thyroid gland; E89.0 Postprocedural hypothyroidism; R63.4 Abnormal weight loss; I10 Essential (primary) hypertension
CPT/HCPCS: 99214

== ENCOUNTER → 2022-04-20 11:40 | Outpatient (BNVA) | payer MEDICARE, MEDICAID, SELFPAY ==
[2019-12-08 10:33] VITALS: BP 139/85; BMI 33.7
== END ==
PROVIDERS: PCP Family Medicine; Visit Provider Otolaryngology
DX: C73 Malignant neoplasm of thyroid gland (principal); C77.9 Secondary and unspecified malignant neoplasm of lymph node, unspecified; Z48.817 Encounter for surgical aftercare following surgery on the skin and subcutaneous tissue; R63.4 Abnormal weight loss; E89.0 Postprocedural hypothyroidism
CPT/HCPCS: 36415; 84439; 84443; 99024

== ENCOUNTER 2022-08-02 14:34 | Outpatient (CLI) | payer MEDICARE, MEDICAID, SELFPAY ==
[2019-12-08 10:33] VITALS: BP 139/85; BMI 33.7
[2022-08-02 15:47] LABS: Free T4 Free Thyroxine 1.41 ng/dL (0.82-1.77); Thyroid Stimulating Hormone 3.16 uIU/mL (0.27-4.20)
[2022-08-06 11:10] LABS: Thyroglobulin AB <1 IU/mL (< or = 1)
[2022-08-11 17:15] LABS: Thyroglobulin Level 49.1 ng/mL
== END 2022-08-02 14:35 | disposition home or self-care (01) ==
LOC: LAB 14:45
PROVIDERS: PCP Family Medicine; Visit Provider Internal Medicine
DX: C73 Malignant neoplasm of thyroid gland (principal); C77.9 Secondary and unspecified malignant neoplasm of lymph node, unspecified; E89.0 Postprocedural hypothyroidism; F91.2 Conduct disorder, adolescent-onset type; R63.4 Abnormal weight loss; I10 Essential (primary) hypertension; L98.9 Disorder of the skin and subcutaneous tissue, unspecified; Z79.890 Hormone replacement therapy; Z68.39 Body mass index [BMI] 39.0-39.9, adult
CPT/HCPCS: 36415; 80306; 84432; 84439; 84443; 86800; 99214

== ENCOUNTER 2022-09-10 08:56 | Outpatient (CLI) | payer MEDICARE, MEDICAID, SELFPAY ==
[2019-12-08 10:33] VITALS: BP 139/85; BMI 33.7
[2022-09-10 10:18] LABS: Free T4 Free Thyroxine 0.24 ng/dL (0.82-1.77); Thyroid Stimulating Hormone 59.46 uIU/mL (0.27-4.20)
[2022-09-12 08:59] LABS: Thyroglobulin AB <1 IU/mL (< or = 1)
[2022-09-18 14:13] LABS: Thyroglobulin Level 223.8 ng/mL
== END 2022-09-10 08:57 | disposition home or self-care (01) ==
LOC: LAB 09:04
PROVIDERS: PCP Family Medicine; Referring Provider Physician Assistant Medical; Visit Provider Internal Medicine
DX: E89.0 Postprocedural hypothyroidism (principal); C73 Malignant neoplasm of thyroid gland; C77.9 Secondary and unspecified malignant neoplasm of lymph node, unspecified; I10 Essential (primary) hypertension; L98.9 Disorder of the skin and subcutaneous tissue, unspecified; R63.4 Abnormal weight loss
CPT/HCPCS: 36415; 84432; 84439; 84443; 86800; 99213

== ENCOUNTER 2022-09-10 09:38 | Emergency (ER) | payer MEDICARE, MEDICAID, SELFPAY ==
[2019-12-08 10:33] VITALS: BP 139/85; BMI 33.7
[2022-09-10 09:42] VITALS: BP 150/96; PULSE 95; RESP 18; TEMP 36.7; O2SAT 98
--- NOTE | 2022-09-10 12:00 | PC.NURSE ---
Rounded on patient
[2022-09-10 12:01] VITALS: BP 137/77; PULSE 91; O2SAT 98
--- NOTE | 2022-09-10 13:13 | W.ED.SKABFB ---
HPI - Skin/Abscess/Foreign Bdy General: Chief complaint: Skin/Abscess/Foreign Body Stated complaint: abscess on buttock Time Seen by Provider: 09/10/22 12:45 History of Present Illness: Patient is a 21-year-old male who comes to the ED with abscess on left buttock. Patient said he has had these multiple times in the past and he usually drains him himself and they would get better. This abscess popped up yesterday and its right at the top of his gluteal cleft and on the left buttock. He says the pain is mild to moderate and he rates it a 4 out of 10. He does not want abscess drained today because he is leaving to go to [facility] to get thyroid cancer treatment for the next 4 days. He does not want anything to delay his treatment in [place] so he would like to get put on antibiotic and then he will talk with him in [place] about abscess on left buttock and they can drain it there if possible, or he will come back here to the ED when he gets back in town if abscess has not improved. Denies any fevers or any other symptoms. Associated symptoms: Deny chills, fever(s), nausea or vomiting Review of Systems Const: Denies: fever(s), chills or fatigue Eyes: Denies: change in vision or eye discomfort ENMT: Denies: throat pain, odynophagia, nasal discharge or nasal congestion Card: Denies: chest pain, palpitations, edema, swelling of feet/ankles, dyspnea on exertion or orthopnea Resp: Denies: dyspnea, productive cough or non-productive cough GI: Denies: abdominal pain, nausea, vomiting, diarrhea, constipation or hematochezia : Denies: flank pain, difficulty urinating, dysuria or hematuria Musc: Denies: neck pain, back pain or extremity swelling Skin/Breast: Reports: new lesions (Possible abscess on left buttock); Denies: rash Neuro: Denies: headache(s), numbness in extremities or weakness in extremities PFS ED PFSH: Medical History Attention-deficit hyperactivity disorder, combined type Borderline personality disorder Chronic post-traumatic stress disorder Conduct disorder, adolescent-onset type Low income Post-traumatic stress disorder, chronic Psychiatric care Surgical History H/O neck surgery Hx of hernia repair Family History Other Dementia Diabetes Hypertension Lung disease Psychiatric illness Social History Smoking and tobacco status: never smoked Second hand smoke exposure: Yes Alcohol intake: never Substance/Drug Use: never Adopted: No Caregiver/support person: No Lives independently: Yes Household members: family Housing: House Marital status: Single Number of children: 0 Number of grandchildren: 0 Highest education level completed: High School Graduate service: No Current occupational status: student Current occupational exposures/hazards: No Pets and animals: Yes Pets & animals: cat(s) and dog(s) Leisure activites: art, reading and other Leisure activities details: video games Sexually active: No Current gender identity: Male Sun/Buddhism: Other Special sun needs: No Agree to transfusion: Yes Financial difficulty paying for basics: Not Very Hard Physical Exam Const: COMMON NORMALS: patient oriented x3 HENMT: COMMON NORMALS: normocephalic HEAD & SCALP: normocephalic MOUTH: Normal oral and palatal mucosa present THROAT: posterior oropharynx normal and uvula midline Neck/C-Spine: COMMON NORMALS: supple GENERAL: Yes normal visual inspection Resp: COMMON NORMALS: normal respiratory effort, No retractions, No use of accessory muscles and clear to auscultation bilaterally AUSCULTATION: clear to auscultation bilaterally Cardio: COMMON NORMALS: regular rate, regular rhythm, S1 normal heart sound present, S2 normal heart sound present, No gallops present (Cardio), No clicks present (Cardio), No murmurs present (Cardio) and Peripheral pulses 2+ throughout RATE: regular rate RHYTHM: regular rhythm HEART SOUNDS: S1 normal heart sound present and S2 normal heart sound present PERIPHERAL PULSES: Peripheral pulses 2+ throughout GI: COMMON NORMALS: Normal to inspection, nondistended, normoactive bowel sounds present, Soft to palpation, non-tender and no masses PALPATION: Yes Soft to palpation : COMMON NORMALS: Yes no CVA tenderness BLADDER/KIDNEY EXAM: Yes no CVA tenderness Back/Pelvis: COMMON NORMALS: no CVA tenderness Extremity: COMMON NORMALS: normal to inspection Neuro: COMMON NORMALS: patient oriented x3 GAIT: Yes Normal gait present Skin: NARRATIVE SKIN EXAM: On superior aspect of left buttock right near the gluteal cleft patient has erythema, warmth and swollen palpable abscess. Findings suggestive of an abscess or an infected pilonidal cyst. No visible purulent drainage seen. Mild tenderness to palpation GENERAL SKIN EXAM: dry skin Course Vital Signs: Vital signs: Vital Signs Temperature 98.1 F 09/10/22 09:42 Pulse Rate 91 09/10/22 12:01 Respiratory Rate 18 09/10/22 09:42 Blood Pressure 137/77 09/10/22 12:01 Pulse Oximetry 98 09/10/22 12:01 Oxygen Delivery Me thod Room Air 09/10/22 09:42 MDM - Skin/Abscess/Foreign Bdy Medicial Decision Making Patient is a 21-year-old male who comes to the ED with abscess on left buttock. Patient said he has had these multiple times in the past and he usually drains him himself and they would get better. This abscess popped up yesterday and its right at the top of his gluteal cleft and on the left buttock. He says the pain is mild to moderate and he rates it a 4 out of 10. He does not want abscess drained today because he is leaving to go to [facility] to get thyroid cancer treatment for the next 4 days. He does not want anything to delay his treatment in [place] so he would like to get put on antibiotic and then he will talk with him in [place] about abscess on left buttock and they can drain it there if possible, or he will come back here to the ED when he gets back in town if abscess has not improved. Denies any fevers or any other symptoms. On superior aspect of left buttock right near the gluteal cleft patient has erythema, warmth and swollen palpable abscess. Findings suggestive of an abscess or an infected pilonidal cyst. No visible purulent drainage seen. Mild tenderness to palpation. Patient was discharged home on an antibiotic and told to talk with In [place] about potential getting abscess drained while being treated or he can come back here to the ED when he gets done with his treatment in [place]. Patient understood agree with plan. Discharge Plan Discharge Patient Disposition: Home Clinical Impression: Abscess of left buttock Condition: Stable Prescriptions: New clindamycin HCl 150 mg capsule 300 mg PO QID 7 Days Qty: 56 0RF No Action levothyroxine 50 mcg tablet 50 mcg PO DAILY 90 Days Qty: 90 0RF levothyroxine 300 mcg tablet 300 mcg PO DAILY Qty: 90 2RF duloxetine [Cymbalta] 60 mg capsule,delayed release(DR/EC) 120 mg PO DAILY Qty: 60 2RF buspirone 15 mg tablet 15 mg PO DAILY Qty: 30 2RF methylphenidate HCl 36 mg tablet extended release 24hr 36 mg PO QAM 30 Days Qty: 30 0RF aspirin 325 mg Tablet 650 mg PO PRN Hold Instructions: Hold for 2 weeks Migraine Relief 250-250-65 mg Tablet 2 tab PO PRN hydrocodone-acetaminophen 5-300 mg tablet 1 tab PO Q4H PRN (Reason: pain) Qty: 30 0RF Discharge Orders: Discharge ED (Routine); Ordered 09/10/22 Ordered By: Jovan Wu Referrals: Fracisco Perez MD [Primary Care Provider] - Discharge Diet: Regular Discharge Activity: Increase activity as tolerated Patient Instructions: Abscess (ED) Activity Restrictions/Additional Instructions: Follow-up with medical provider as directed. Take medications as prescribed. Return to the ER or your medical provider if condition worsens. Please read and understand discharge instructions. Thank you for choosing [facility] for your healthcare needs today. Please realize this is an emergency room and that we are providing you with a medical screening exam and this may not be complete and all inclusive of all the testing and or work up that you may need to determine your ailment or severity of your illness. It is very important that you follow up as instructed or that you return to the Emergency Department should you have concerns or if your condition changes or worsens in any way. Coding Level of Care Code ED Quantitative Strategy Analyst for [facility]
== END 2022-09-10 13:38 | disposition home or self-care (01) ==
PROVIDERS: Emergency Provider Physician Assistant; PCP Family Medicine
DX: L02.31 Cutaneous abscess of buttock (principal); Z79.82 Long term (current) use of aspirin; Z77.22 Contact with and (suspected) exposure to environmental tobacco smoke (acute) (chronic)
CPT/HCPCS: 99283

== ENCOUNTER 2022-11-20 09:30 | Outpatient (CLI) | payer MEDICARE, MEDICAID, SELFPAY ==
[2019-12-08 10:33] VITALS: BP 139/85; BMI 33.7
[2022-11-20 10:41] LABS: Free T4 Free Thyroxine 1.31 ng/dL (0.82-1.77); Thyroid Stimulating Hormone 0.54 uIU/mL (0.27-4.20)
== END 2022-11-20 09:31 | disposition home or self-care (01) ==
PROVIDERS: PCP Family Medicine; Visit Provider Internal Medicine
DX: R63.4 Abnormal weight loss (principal)
CPT/HCPCS: 84439; 84443

== ENCOUNTER 2022-12-12 19:56 | Inpatient (IN) | payer MEDICARE, MEDICAID, SELFPAY ==
[2019-12-08 10:33] VITALS: BP 139/85; BMI 33.7
[2022-12-12 20:01] VITALS: BP 138/96; PULSE 88; RESP 18; TEMP 37.2; O2SAT 99; BMI 36.2
[2022-12-12 20:25] LABS: Basophils % 0.6 %; Eosinophils # 0.3 10^3/uL (0.0-0.8); Eosinophils % 4.3 %; Lymphocytes # 1.1 10^3/uL (0.8-4.8); Lymphocytes % 16.7 %; Mean Corpuscular HGB Conc 32.6 g/dL (30-55); Mean Corpuscular Hemoglobin 26.1 pg (27-33); Mean Platelet Volume 11.7 fL (7.4-10.4); Monocytes # 0.4 10^3/uL (0.2-0.9); Monocytes % 6.1 %; Neutrophils # 4.88 10^3/uL (1.8-7.7); Neutrophils % 72.2 %; Nucleated Red Blood Cells % 0 %; Platelet Count 189 10^3/cmm (157-399); Red Blood Count 5.75 10^6/uL (3.85-5.65); Red Cell Distribution Width 12.5 % (12.1-15.1); White Blood Count 6.76 10^3/uL (3.29-11.43)
--- NOTE | 2022-12-12 20:37 | ED.C_ITS ---
HPI - Psych General: Chief Complaint: Psychiatric Symptoms Stated Complaint: SI Time Seen by Provider: 12/12/22 20:09 History of Present Illness: Patient presents to the ER by EMS with police presence as well. Patient is suicidal he has a plan to throw himself into the traffic patient also has visible cuts and scrapes on his left wrist area where he was digging and calling attempt to cause injury to himself. Patient is alert and oriented and states that if I get if him a scalpel he would ended all right now, even if we put him in patient just soon as he gets out he is going to step off into traffic. Affidavit was written by the naval police coxswain. Review of Systems General: Reports: 10 or more systems reviewed and unremarkable except in HPI and below PFSH ED PFSH: Medical History Attention-deficit hyperactivity disorder, combined type Borderline personality disorder Chronic post-traumatic stress disorder Low income Metastasis to lymph nodes Migraine headache Post-traumatic stress disorder, chronic Psychiatric care Surgical History Hx of hernia repair Hx of neck surgery Family History Other Dementia Diabetes Hypertension Lung disease Psychiatric illness Social History Smoking and tobacco status: never smoked Second hand smoke exposure: Yes Alcohol intake: never Substance/Drug Use: never Adopted: No Caregiver/support person: No Lives independently: Yes Household members: family Housing: House Marital status: Single Number of children: 0 Number of grandchildren: 0 Highest education level completed: High School Graduate service: No Current occupational status: student Current occupational exposures/hazards: No Pets and animals: Yes Pets & animals: cat(s) and dog(s) Leisure activites: art, reading and other Leisure activities details: video games Sexually active: No Current gender identity: Male Sun/Oriental Orthodox: Other Special sun needs: No Agree to transfusion: Yes Financial difficulty paying for basics: Not Very Hard Physical Exam Const: COMMON NORMALS: no acute distress, average body habitus, patient oriented x3, no limitations, healthy appearing, alert and well nourished HENMT: COMMON NORMALS: normocephalic, atraumatic, hearing grossly normal bilaterally, external ears normal, Normal external nose present and moist oral mucous membranes HEAD & SCALP: normocephalic and atraumatic NOSE: Normal external nose present EXTERNAL EAR: Yes external ears normal Eye: COMMON NORMALS: Equal, round and reactive pupils present, EOMs intact bilaterally, conjunctivae normal and no scleral icterus CONJUNCTIVA: Yes conjunctivae normal PUPIL: Yes Equal, round and reactive pupils present Neck/C-Spine: COMMON NORMALS: no JVD Chest: COMMONS NORMALS: normal inspection of the chest and normal palpation of entire chest wall Resp: COMMON NORMALS: normal respiratory effort, No retractions, No use of accessory muscles and clear to auscultation bilaterally AUSCULTATION: clear to auscultation bilaterally Cardio: COMMON NORMALS: no JVD, regular rate, regular rhythm, S1 normal heart sound present, S2 normal heart sound present, No gallops present (Cardio), No clicks present (Cardio), No murmurs present (Cardio) and No rub (Cardio) RATE: regular rate RHYTHM: regular rhythm HEART SOUNDS: S1 normal heart sound present and S2 normal heart sound present GI: COMMON NORMALS: Normal to inspection, nondistended, normoactive bowel sounds present, Soft to palpation, non-tender, No hepatosplenomegaly present and no masses PALPATION: Yes Soft to palpation and Yes No hepatosplenomegaly present : COMMON NORMALS: Yes no CVA tenderness BLADDER/KIDNEY EXAM: Yes no CVA tenderness Back/Pelvis: COMMON NORMALS: no CVA tenderness Neuro: COMMON NORMALS: patient oriented x3 SENSORIUM/ORIENTATION: Yes alert Skin: NARRATIVE SKIN EXAM: Abrasion type wound on the left anterior wrist region patient keeps on picking and scratching at. Course Vital Signs: Vital signs: Vital Signs Temperature 99.0 F 12/12/22 20:01 Pulse Rate 88 12/12/22 20:01 Respiratory Rate 18 12/12/22 20:01 Blood Pressure 138/96 12/12/22 20:01 Pulse Oximetry 99 12/12/22 20:01 Oxygen Delivery Me thod Room Air 12/12/22 20:01 MDM - Psych Medical Decision Making Patient presents to the ER with complaints of suicidal ideation. Patient was worked up in a standard fashion lab work was obtained Dr. Lopez was consulted who agreed to admit the patient for further evaluation and treatment. Differential Diagnosis Likely suicidal ideation; Unlikely acute psychosis, chronic schizophrenia, bipolar disorder, depression, drug-induced psychotic disorder or acute anxiety Medical Records I reviewed the patient's medical records. Lab Data I reviewed the patient's lab results. 12/12/22 20:18 12/12/22 20:18 Laboratory Results WBC 6.76 10^3/uL (3.29-11.43) 12/12/22 20:18 RBC 5.75 10^6/uL (3.85-5.65) H 12/12/22 20:18 Hgb 15.00 g/dL (11.27-16.99) 12/12/22 20:18 Hct 46.0 % (37-53) 12/12/22 20:18 MCV 80.0 fl (82-101) L 12/12/22 20:18 MCH 26.1 pg (27-33) L 12/12/22 20:18 MCHC 32.6 g/dL (30-55) 12/12/22 20:18 RDW 12.5 % (12.1-15.1) 12/12/22 20:18 Plt Count 189 10^3/cmm (157-399) 12/12/22 20:18 MPV 11.7 fL (7.4-10.4) H 12/12/22 20:18 Neut % (Auto) 72.2 % 12/12/22 20:18 Lymph % (Auto) 16.7 % 12/12/22 20:18 Millard % (Auto) 6.1 % 12/12/22 20:18 Eos % (Auto) 4.3 % 12/12/22 20:18 Baso % (Auto) 0.6 % 12/12/22 20:18 Neut # (Auto) 4.88 10^3/uL (1.8-7.7) 12/12/22 20:18 Lymph # (Auto) 1.1 10^3/uL (0.8-4.8) 12/12/22 20:18 Millard # (Auto) 0.4 10^3/uL (0.2-0.9) 12/12/22 20:18 Eos # (Auto) 0.3 10^3/uL (0.0-0.8) 12/12/22 20:18 Baso # (Auto) 0.0 10^3/uL (0.0-0.1) 12/12/22 20:18 Nucleated RBC % (auto) 0 % 12/12/22 20:18 Nucleated RBCs # 0.0 /100WBC 12/12/22 20:18 Sodium 139 mmol/L (136-145) 12/12/22 20:18 Potassium 3.8 mmol/L (3.5-5.1) 12/12/22 20:18 Chloride 104 mmol/L (98-107) 12/12/22 20:18 Carbon Dioxide 23 mmol/L (22-29) 12/12/22 20:18 Anion Gap 15.8 (5-19) 12/12/22 20:18 BUN 14 mg/dL (6-20) 12/12/22 20:18 Creatinine 0.8 mg/dL (0.7-1.2) 12/12/22 20:18 GFR Calculation 120.9 mL/min (90-130) 12/12/22 20:18 Glucose 104 mg/dL (65-115) 12/12/22 20:18 Calculated Osmolality 289 mOsm/kg (285-295) 12/12/22 20:18 Calcium 9.5 mg/dL (8.5-10.5) 12/12/22 20:18 Total Bilirubin 0.2 mg/dL (0.15-1.2) 12/12/22 20:18 AST 29 U/L (0-40) 12/12/22 20:18 ALT 63 U/L (0-41) H 12/12/22 20:18 Alkaline Phosphatase 101 U/L (40-130) 12/12/22 20:18 Total Protein 7.7 g/dL (6.6-8.7) 12/12/22 20:18 Albumin 4.9 g/dL (3.5-5.2) 12/12/22 20:18 Globulin 2.8 g/dL (1.3-4.6) 12/12/22 20:18 TSH 0.02 uIU/mL (0.27-4.20) L 12/12/22 20:18 Urine Color Yellow (Yellow) 12/12/22 20:22 Urine Appearance Clear (CLEAR) 12/12/22 20:22 Urine pH 6 (5-7) 12/12/22 20:22 Ur Specific [place] 1.020 (1.005-1.030) 12/12/22 20:22 Urine Protein Trace (Negative) 12/12/22 20:22 Urine Glucose (UA) Norm (Normal) 12/12/22 20:22 Urine Ketones Negative (Negative) 12/12/22 20:22 Urine Blood Neg (Negative) 12/12/22 20:22 Urine Nitrate Negative (Negative) 12/12/22 20:22 Urine Bilirubin Neg (Negative) 12/12/22 20:22 Urine Urobilinogen Neg mg/dL (Negative) 12/12/22 20:22 Ur Leukocyte Esterase Negative (Negative) 12/12/22 20:22 Urine RBC None /hpf (0-2) 12/12/22 20:22 Urine WBC None /hpf (0-5) 12/12/22 20:22 Ur Squamous Epith Cells None /hpf (0-5) 12/12/22 20:22 Amorphous Sediment Not Reportable 12/12/22 20:22 Urine Bacteria Trace /hpf (NONE) 12/12/22 20:22 Urine Mucus 2+ /hpf 12/12/22 20:22 Salicylates < 0.3 mg/dL (3-10) L 12/12/22 20:18 Urine Opiates Screen Negative ng/mL (Negative) 12/12/22 20:22 Acetaminophen < 5.0 ug/mL (10-30) L 12/12/22 20:18 Ur Barbiturates Screen Negative ng/mL (Negative) 12/12/22 20:22 Ur Phencyclidine Scrn Negative ng/mL (Negative) 12/12/22 20:22 Ur Amphetamines Screen Negative ng/mL (Negative) 12/12/22 20:22 U Benzodiazepines Scrn Negative ng/mL (Negative) 12/12/22 20:22 Urine Cocaine Screen Negative ng/mL (Negative) 12/12/22 20:22 U Marijuana (THC) Screen Negative ng/mL (Negative) 12/12/22 20:22 Ethyl Alcohol < 10 mg/dL (0-10) 12/12/22 20:18 Discharge Plan Discharge Patient Disposition: Admitted As Inpatient Clinical Impression: Suicidal ideation Condition: Stable Coding Level of Care Code ED Piano Mechanic Apprentice for [facility]
[2022-12-12 20:40] LABS: Amphetamines Screen Urine Negative (Negative); Barbiturates Screen Urine Negative (Negative); Benzodiazepines Screen Urine Negative (Negative); Cocaine Screen Urine Negative (Negative); Opiate Screen Urine Negative (Negative); PCP Screen Urine Negative (Negative); THC Screen Urine Negative (Negative)
[2022-12-12 20:53] LABS: Add Urine Microscopic? YES; Bilirubin Urine Neg (Negative); Blood Urine Neg (Negative); Glucose Urine UA Norm (Normal); Ketones Urine Negative (Negative); Leukocyte Esterase Urine Negative (Negative); Nitrate Urine Negative (Negative); Protein Urine Trace (Negative); Urine Appearance Clear (CLEAR); Urine Color Yellow (Yellow); Urobilinogen Urine Neg (Negative); pH Urine 6 (5-7)
[2022-12-12 20:54] LABS: Add Urine Culture? No; Bacteria Urine TRACE /hpf; Mucus Urine 2+ /hpf
[2022-12-12 20:54] LABS: Alanine Aminotransferase 63 U/L (0-41); Albumin Level 4.9 g/dL (3.5-5.2); Alkaline Phosphatase 101 U/L (40-130); Anion Gap 15.8 (5-19); Aspartate Amino Transferase 29 U/L (0-40); Blood Urea Nitrogen 14 mg/dL (6-20); Calcium 9.5 mg/dL (8.5-10.5); Carbon Dioxide 23 mmol/L (22-29); Chloride 104 mmol/L (98-107); Globulin 2.8 g/dL (1.3-4.6); Glomerular Filtration Rate 120.9 mL/min (90-130); Glucose 104 mg/dL (65-115); Osmolality Calculated 289 mOsm/kg (285-295); Potassium 3.8 mmol/L (3.5-5.1); Sodium 139 mmol/L (136-145); Thyroid Stimulating Hormone 0.02 uIU/mL (0.27-4.20); Total Bilirubin 0.2 mg/dL (0.15-1.2); Total Protein 7.7 g/dL (6.6-8.7)
[2022-12-12 20:57] LABS: Acetaminophen < 5.0 ug/mL (10-30); Alcohol Level < 10 mg/dL (0-10); Salicylate < 0.3 mg/dL (3-10)
[2022-12-12 22:20] VITALS: BP 136/86; PULSE 73; RESP 20; TEMP 37.1; O2SAT 97
[2022-12-13 06:00] VITALS: BP 114/70; PULSE 70; RESP 18; TEMP 36.8; O2SAT 98
[2022-12-13] MEDS: BuSPIRONE 10 mg Tablet 30 MG PO (09:44)
[2022-12-13] MEDS: duloxetine 60 mg Capsule 120 MG PO (09:44)
[2022-12-13] MEDS: levothyroxine 150 mcg Tablet 300 MCG PO (09:45)
[2022-12-13] MEDS: neomycin-poly-bacitracin oint 28 gm 1 APPLIC TOPICAL (09:47)
[2022-12-13] MEDS: levothyroxine 50 mcg Tablet PO (09:59)
--- NOTE | 2022-12-13 12:33 | PC.NURSE ---
Pt's stepmom called the unit and reported that the pt stated that he would walk into moving traffic once he is released from here.
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
[2022-12-13 14:00] VITALS: BP 130/87; PULSE 103; RESP 15; TEMP 37.1; O2SAT 96
[2022-12-13 20:02] VITALS: RESP 18
--- NOTE | 2022-12-13 20:25 | PC.NURSE ---
IN ROOM ASSESSMENT COMPLETED. PT DENIES PAIN. DENIES HI AND AVH. PT DOES ENDORSE INTERMITTEN PASSING SUICIDAL THOUGHTS WITH NO PLAN. PT WAS CONTRACTED FOR SAFETY. STATES HE HAS HAD SOME STUFF HAPPEN AND MY SUICIDAL THOUGHTS HAVE GOTTEN WORSE. PT WAS OFFERED MEDICATIONS TO HELP WITH SLEEP BUT DECLINES. FLAT AFFECT NOTED. ALL QUESTIONS ANSWERED AND SUPPORT VOICED.
--- NOTE | 2022-12-14 04:44 | P.NPUPN_ITS ---
Subjective NPU Subjective: Patient presented today reporting that he is doing okay. He worked with the social work team who worked with his family who reported that it is okay for him to return home. We discussed a plan for discharge in the next 48 hours but likely in the morning. We discussed the making sure he was following through with his appointment at [facility] and specifically importance of him having regular talk therapy to be able to discuss the challenges at home. Mental Status Exam MSE Comments: This is an obese white male in hospital scrubs with limited grooming and adequate eye contact. No abnormal movements except for mild psychomotor retardation. Cooperative with exam in mild distress. Speech was decreased rate and volume. Mood described as okay, affect slightly subdued. Thought process organized. Thought content: Patient denied current suicidal or homicidal ideation, no delusions reported noted, he denies any auditory or visual hallucinations. Attention and concentration were intact and memory appeared reliable but none were formally tested. He is alert and oriented x3. Insight and judgment appear limited impulse control appears impaired and intellectual ability appeared limited. Vitals/I&O/Wt Last Vital Signs Temp 98.3 F 12/14/22 13:27 Pulse 80 12/14/22 13:27 Resp 16 12/14/22 13:27 BP 130/86 12/14/22 13:27 Pulse Ox 96 12/14/22 13:27 O2 Del Method Room Air 12/14/22 13:27 Data NPU 12/12/22 20:18 12/12/22 20:18 A&P Assessment and plan (1) Borderline personality disorder: (2) Post-traumatic stress disorder, chronic: (3) Attention-deficit hyperactivity disorder, combined type: (4) Autism spectrum disorder: (5) S/P thyroidectomy: (6) Hypothyroid: Qualifiers: Hypothyroidism type: postoperative Qualified Code(s): E89.0 - P ostprocedural hypothyroidism (7) Suicidal ideation: (8) HTN (hypertension): (9) Metastasis to lymph nodes: Plan This is a 22-year-old white male with a long history of borderline electrical functioning and mental health challenges with multiple previous hospitalizations who presents after issues in his relationship with his parents and living at home led to him being in a homeless correction and having significant mental health challenges. 1. Continue current medication. Except hold Concerta for now. 2. Encourage individual, group, and milieu therapy. 3. Continue q-15-minute checks for safety. 4. Work with social work team for exploration of housing logistics and continued [facility] follow-up. Family willing to receive him back some plan for discharge in the morning. Involuntary Hold Information 96 Hour Hold: 96 Hour Involuntary Admission: No Attestations NPU Medical Necessity Statement*: Inpatient hospitalization is medically necessary and the clinically appropriate intervention, at this time. We will monitor medications and make changes as indicated. Likely length of stay is 1-3 days. Coding Level of Care Code Acute Code for Chg Fwd Diagnoses Borderline personality disorder F60.3 Post-traumatic stress disorder, chronic F43.12 Attention-deficit hyperactivity disorder, combined type F90.2 Autism spectrum disorder F84.0 S/P thyroidectomy E89.0 Hypothyroid E89.0 Hypothyroidism type: postoperative Suicidal ideation R45.851 HTN (hypertension) I10 Metastasis to lymph nodes C77.9
[2022-12-14 06:00] VITALS: RESP 16
[2022-12-14] MEDS: BuSPIRONE 10 mg Tablet 30 MG PO (08:03)
[2022-12-14] MEDS: levothyroxine 50 mcg Tablet PO (08:04)
[2022-12-14] MEDS: levothyroxine 150 mcg Tablet 300 MCG PO (08:04)
[2022-12-14] MEDS: duloxetine 60 mg Capsule 120 MG PO (08:04)
[2022-12-14] MEDS: neomycin-poly-bacitracin oint 28 gm 1 APPLIC TOPICAL (08:06)
[2022-12-14 13:27] VITALS: BP 130/86; PULSE 80; RESP 16; TEMP 36.8; O2SAT 96
--- NOTE | 2022-12-14 15:56 | DCPLANNER ---
IMM completed with pt on 12/14/22 @ 0065. Pt was given a copy of rights.
[2022-12-14] MEDS: acetaminophen 325 mg Tablet 650 MG PO (18:49)
[2022-12-14 20:09] VITALS: BP 144/88; PULSE 77; RESP 16; TEMP 37.1; O2SAT 96
[2022-12-15 06:00] VITALS: BP 108/70; PULSE 59; RESP 16; TEMP 36.4; O2SAT 97
[2022-12-15] MEDS: levothyroxine 50 mcg Tablet PO (06:00)
[2022-12-15] MEDS: BuSPIRONE 10 mg Tablet 30 MG PO (08:51)
[2022-12-15] MEDS: duloxetine 60 mg Capsule 120 MG PO (08:52)
[2022-12-15] MEDS: levothyroxine 150 mcg Tablet 300 MCG PO (08:53)
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
[2022-12-15 09:51] VITALS: BP 108/70; PULSE 59; RESP 16; TEMP 36.4; O2SAT 97
== END 2022-12-15 11:27 | disposition home or self-care (01) | DRG 883 ==
LOC: ER 20:39 → NP 22:03
PROVIDERS: Admitting Provider Psychiatry & Neurology Psychiatry; Emergency Provider Emergency Medicine; Visit Provider Psychiatry & Neurology Psychiatry
DX: F60.3 Borderline personality disorder (principal); R45.851 Suicidal ideations; F90.2 Attention-deficit hyperactivity disorder, combined type; Z91.148 Patient's other noncompliance with medication regimen for other reason; Z59.00 Homelessness unspecified
CPT/HCPCS: 36415; 80053; 80306; 80307; 81001; 84443; 85025; 93005; 97150; 97165; 99238; 99285; J7030; Q0162

== ENCOUNTER 2022-12-15 23:10 | Inpatient (IN) | payer MEDICARE, MEDICAID, SELFPAY ==
[2019-12-08 10:33] VITALS: BP 139/85; BMI 33.7
[2022-12-15 23:10] VITALS: BP 151/98; PULSE 82; RESP 18; O2SAT 94; BMI 36.6
[2022-12-15 23:18] VITALS: BP 150/76; PULSE 92; RESP 18; O2SAT 96
--- NOTE | 2022-12-15 23:21 | ECG_ITS ---
[facility] Test Date: 2022-12-15 Pat Name: Brian Damico Department: Room: Gender: Male [employer] Vice President: : 2000 Requested By: Cayden Aldana Order Number: [id number] Flannery MD: Jelly Barajas M.D. Measurements Intervals [place] Rate: 81 P: 46 [place]: 152 QRS: 26 QRSD: 84 T: 41 QT: 335 QTc: 391 Interpretive Statements SINUS RHYTHM WITH MARKED SINUS ARRHYTHMIA Compared to ECG 12/29/2018 20:35:43 No significant changes Electronically Signed On 12-16-2022 5:08:17 CDT by Jelly Barajas M.D. [id number]
--- NOTE | 2022-12-15 23:21 | ED_ITS ---
HPI - Overdose General: Chief Complaint: Overdose Stated Complaint: OD/SI Time Seen by Provider: 12/15/22 23:13 History of Present Illness: 22-year-old male who was released from the neuropsychiatric unit less than 24 hours ago. He presents tonight 2 hours after having taken an unknown number of duloxetine 60 mg tablets. He believes it to be 2 handfuls . He was having thoughts of self-harm when he did this. He states that he then began to regret his decision so he called 911. He is not feeling nauseated. No vomiting. No seizure. No other complaints. Review of Systems Const: Denies: fever(s) Eyes: Denies: change in vision ENMT: Denies: throat pain Card: Denies: chest pain Resp: Denies: dyspnea GI: Denies: abdominal pain, nausea or vomiting Skin/Breast: Reports: rash (Wrist abrasion from several days ago) Neuro: Denies: headache(s) Psych: Reports: depression PFS ED PFSH: Medical History Attention-deficit hyperactivity disorder, combined type Borderline personality disorder Chronic post-traumatic stress disorder Low income Metastasis to lymph nodes Migraine headache Post-traumatic stress disorder, chronic Psychiatric care Surgical History Hx of hernia repair Hx of neck surgery Family History Other Dementia Diabetes Hypertension Lung disease Psychiatric illness Social History Smoking and tobacco status: never smoked Second hand smoke exposure: Yes Alcohol intake: never Substance/Drug Use: never Adopted: No Caregiver/support person: No Lives independently: Yes Household members: family Housing: House Marital status: Single Number of children: 0 Number of grandchildren: 0 Highest education level completed: High School Graduate service: No Current occupational status: student Current occupational exposures/hazards: No Pets and animals: Yes Pets & animals: cat(s) and dog(s) Leisure activites: art, reading and other Leisure activities details: video games Sexually active: No Current gender identity: Male Sun/Bahai: Other Special sun needs: No Agree to transfusion: Yes Financial difficulty paying for basics: Not Very Hard Physical Exam Const: COMMON NORMALS: no acute distress GENERAL APPEARANCE: cooperative; not ill appearing and not frail appearing HENMT: COMMON NORMALS: normocephalic, atraumatic and Normal external nose present HEAD & SCALP: normocephalic and atraumatic FACE & SINUS: normal facial exam and face symmetric NOSE: Normal external nose present Eye: COMMON NORMALS: Equal, round and reactive pupils present and EOMs intact bilaterally PUPIL: Yes Equal, round and reactive pupils present Neck/C-Spine: GENERAL: Yes trachea midline Chest: CHEST: Yes Symmetrical chest wall rise Resp: COMMON NORMALS: normal respiratory effort, No retractions, No use of accessory muscles and clear to auscultation bilaterally AUSCULTATION: clear to auscultation bilaterally Cardio: COMMON NORMALS: regular rate and regular rhythm RATE: regular rate RHYTHM: regular rhythm GI: COMMON NORMALS: Normal to inspection, nondistended, normoactive bowel sounds present Extremity: COMMON NORMALS: no pedal edema Neuro: BLAN[place] COMA SCALE: document GCS findings [place] coma scale eye opening: Spontaneous [place] coma scale verbal response: Orientated [place] coma scale motor response: Obey commands [place] coma scale total score: 15 SENSORY EXAM: Yes extremities (intact) Psych: COMMON NORMALS: speech normal SPEECH: Yes normal speech Skin: COMMON NORMALS: no rashes or lesions noted GENERAL SKIN EXAM: no rashes or lesions noted Course Vital Signs: Vital signs: Vital Signs Pulse Rate 86 12/16/22 00:48 Respiratory Rate 14 12/16/22 00:48 Blood Pressure 152/102 12/16/22 00:48 Pulse Oximetry 96 12/16/22 00:48 Oxygen Delivery Me thod Room Air 12/16/22 00:48 MDM - Overdose Medical Decision Making Duloxetine has quite a long time to peak serum levels. Because of this, and because the unknown number he actually took, he will have to go to the ICU for continued monitoring. Hospitalist was consulted and has seen the patient in the emergency department. Psychiatry was consulted as well and will see the patient when medically clear. CBC and BMP are normal. Urine drug screen is negative. Alcohol is nondetectable. Other laboratory is not remarkable. EKG shows a normal QTc. There is sinus arrhythmia, with normal axis, intervals, controlled rate, and no ST wave changes. 96-hour hold has been written for this patient due to intentional overdose with recent neuropsychiatric admission. Lab Data 12/15/22 22:36 12/15/22 22:36 Laboratory Results WBC 8.14 10^3/uL (3.29-11.43) 12/15/22 22:36 RBC 5.73 10^6/uL (3.85-5.65) H 12/15/22 22:36 Hgb 15.00 g/dL (11.27-16.99) 12/15/22 22:36 Hct 46.6 % (37-53) 12/15/22 22:36 MCV 81.3 fl (82-101) L 12/15/22 22:36 MCH 26.2 pg (27-33) L 12/15/22 22:36 MCHC 32.2 g/dL (30-55) 12/15/22 22:36 RDW 12.4 % (12.1-15.1) 12/15/22 22:36 Plt Count 192 10^3/cmm (157-399) 12/15/22 22:36 MPV 11.6 fL (7.4-10.4) H 12/15/22 22:36 Neut % (Auto) 72.2 % 12/15/22 22:36 Lymph % (Auto) 16.6 % 12/15/22 22:36 Braxton % (Auto) 7.2 % 12/15/22 22:36 Eos % (Auto) 3.2 % 12/15/22 22:36 Baso % (Auto) 0.4 % 12/15/22 22:36 Neut # (Auto) 5.88 10^3/uL (1.8-7.7) 12/15/22 22:36 Lymph # (Auto) 1.4 10^3/uL (0.8-4.8) 12/15/22 22:36 Braxton # (Auto) 0.6 10^3/uL (0.2-0.9) 12/15/22 22:36 Eos # (Auto) 0.3 10^3/uL (0.0-0.8) 12/15/22 22:36 Baso # (Auto) 0.0 10^3/uL (0.0-0.1) 12/15/22 22:36 Nucleated RBC % (auto) 0 % 12/15/22 22:36 Nucleated RBCs # 0.0 /100WBC 12/15/22 22:36 Sodium 144 mmol/L (136-145) 12/15/22 22:36 Potassium 4.4 mmol/L (3.5-5.1) 12/15/22 22:36 Chloride 106 mmol/L (98-107) 12/15/22 22:36 Carbon Dioxide 28 mmol/L (22-29) 12/15/22 22:36 Anion Gap 14.4 (5-19) 12/15/22 22:36 BUN 15 mg/dL (6-20) 12/15/22 22:36 Creatinine 0.8 mg/dL (0.7-1.2) 12/15/22 22:36 GFR Calculation 120.9 mL/min (90-130) 12/15/22 22:36 Glucose 103 mg/dL (65-115) 12/15/22 22:36 Calculated Osmolality 299 mOsm/kg (285-295) H 12/15/22 22:36 Calcium 9.7 mg/dL (8.5-10.5) 12/15/22 22:36 Total Bilirubin 0.3 mg/dL (0.15-1.2) 12/15/22 22:36 AST 28 U/L (0-40) 12/15/22 22:36 ALT 66 U/L (0-41) H 12/15/22 22:36 Alkaline Phosphatase 101 U/L (40-130) 12/15/22 22:36 Total Protein 7.8 g/dL (6.6-8.7) 12/15/22 22:36 Albumin 4.9 g/dL (3.5-5.2) 12/15/22 22:36 Globulin 2.9 g/dL (1.3-4.6) 12/15/22 22:36 Urine Color Yellow (Yellow) 12/16/22 00:27 Urine Appearance Clear (CLEAR) 12/16/22 00:27 Urine pH 5 (5-7) 12/16/22 00:27 Ur Specific [place] 1.020 (1.005-1.030) 12/16/22 00:27 Urine Protein 1+ (Negative) H 12/16/22 00:27 Urine Glucose (UA) Norm (Normal) 12/16/22 00:27 Urine Ketones 1+ (Negative) H 12/16/22 00:27 Urine Blood Neg (Negative) 12/16/22 00:27 Urine Nitrate Negative (Negative) 12/16/22 00:27 Urine Bilirubin 1+ (Negative) H 12/16/22 00:27 Urine Urobilinogen 1 mg/dL (Negative) H 12/16/22 00:27 Ur Leukocyte Esterase Trace (Negative) H 12/16/22 00:27 Urine RBC Rare /hpf (0-2) 12/16/22 00:27 Urine WBC Rare /hpf (0-5) 12/16/22 00:27 Ur Squamous Epith Cells Rare /hpf (0-5) 12/16/22 00:27 Amorphous Sediment Not Reportable 12/16/22 00:27 Urine Bacteria None /hpf (NONE) 12/16/22 00:27 Urine Mucus 3+ /hpf 12/16/22 00:27 Salicylates 0.5 mg/dL (3-10) L 12/15/22 22:36 Urine Opiates Screen Negative ng/mL (Negative) 12/16/22 00:27 Acetaminophen < 5.0 ug/mL (10-30) L 12/15/22 22:36 Ur Barbiturates Screen Negative ng/mL (Negative) 12/16/22 00:27 Ur Phencyclidine Scrn Negative ng/mL (Negative) 12/16/22 00:27 Ur Amphetamines Screen Negative ng/mL (Negative) 12/16/22 00:27 U Benzodiazepines Scrn Negative ng/mL (Negative) 12/16/22 00:27 Urine Cocaine Screen Negative ng/mL (Negative) 12/16/22 00:27 U Marijuana (THC) Screen Negative ng/mL (Negative) 12/16/22 00:27 Ethyl Alcohol < 10 mg/dL (0-10) 12/15/22 22:36 No radiology studies performed this visit Discharge Plan Discharge Patient Disposition: Admitted As Inpatient Admit Provider: Vince Combs Clinical Impression: Drug overdose, intentional Condition: Fair Prescriptions: No Action duloxetine [Cymbalta] 60 mg capsule,delayed release(DR/EC) 120 mg PO DAILY Qty: 60 0RF Tirosint 50 mcg capsule 50 mcg PO DAILY Synthroid 300 mcg tablet 300 mcg PO DAILY buspirone 30 mg tablet 30 mg PO DAILY Qty: 30 0RF Coding Level of Care Code ED [employer] 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
[2022-12-15 23:35] LABS: Basophils % 0.4 %; Eosinophils # 0.3 10^3/uL (0.0-0.8); Eosinophils % 3.2 %; Hematocrit 46.6 % (37-53); Lymphocytes # 1.4 10^3/uL (0.8-4.8); Lymphocytes % 16.6 %; Mean Corpuscular HGB Conc 32.2 g/dL (30-55); Mean Corpuscular Hemoglobin 26.2 pg (27-33); Mean Corpuscular Volume 81.3 fl (82-101); Mean Platelet Volume 11.6 fL (7.4-10.4); Monocytes # 0.6 10^3/uL (0.2-0.9); Monocytes % 7.2 %; Neutrophils # 5.88 10^3/uL (1.8-7.7); Neutrophils % 72.2 %; Nucleated Red Blood Cells % 0 %; Platelet Count 192 10^3/cmm (157-399); Red Blood Count 5.73 10^6/uL (3.85-5.65); Red Cell Distribution Width 12.4 % (12.1-15.1); White Blood Count 8.14 10^3/uL (3.29-11.43)
[2022-12-15 23:57] LABS: Albumin Level 4.9 g/dL (3.5-5.2); Alkaline Phosphatase 101 U/L (40-130); Anion Gap 14.4 (5-19); Aspartate Amino Transferase 28 U/L (0-40); Blood Urea Nitrogen 15 mg/dL (6-20); Calcium 9.7 mg/dL (8.5-10.5); Carbon Dioxide 28 mmol/L (22-29); Chloride 106 mmol/L (98-107); Globulin 2.9 g/dL (1.3-4.6); Glomerular Filtration Rate 120.9 mL/min (90-130); Glucose 103 mg/dL (65-115); Potassium 4.4 mmol/L (3.5-5.1); Sodium 144 mmol/L (136-145); Total Bilirubin 0.3 mg/dL (0.15-1.2); Total Protein 7.8 g/dL (6.6-8.7)
[2022-12-16] VITALS (73 sets, daily range): BP systolic 110–152; BP diastolic 55–102; PULSE 53–109; RESP 13–33; TEMP 36.8–37.3; O2SAT 90–98; BMI 35.9
[2022-12-16 00:03] LABS: Acetaminophen < 5.0 ug/mL (10-30); Alanine Aminotransferase 66 U/L (0-41); Alcohol Level < 10 mg/dL (0-10); Salicylate 0.5 mg/dL (3-10)
[2022-12-16 00:05] LABS: Osmolality Calculated 299 mOsm/kg (285-295)
[2022-12-16 00:42] LABS: Blood Urine Neg (Negative); Glucose Urine UA Norm (Normal); Ketones Urine 1+ (Negative); Nitrate Urine Negative (Negative); Protein Urine 1+ (Negative); Urine Appearance Clear (CLEAR); Urine Color Yellow (Yellow); pH Urine 5 (5-7)
[2022-12-16 00:43] LABS: Add Urine Culture? No; Add Urine Microscopic? YES; Bilirubin Urine 1+ (Negative); Leukocyte Esterase Urine Trace (Negative); Mucus Urine 3+ /hpf; RBC Urine RARE /hpf (0-2); Squamous Epithelial Cell Urine RARE /hpf (0-5); Urobilinogen Urine 1 mg/dL (Negative); WBC Urine RARE /hpf (0-5)
[2022-12-16 00:45] LABS: Amphetamines Screen Urine Negative (Negative); Barbiturates Screen Urine Negative (Negative); Benzodiazepines Screen Urine Negative (Negative); Cocaine Screen Urine Negative (Negative); Opiate Screen Urine Negative (Negative); PCP Screen Urine Negative (Negative); THC Screen Urine Negative (Negative)
--- NOTE | 2022-12-16 00:45 | PM.HP ---
Providers/Chief Complaint Admitting Physician: Vince Combs MD Chief Complaint: OD/SI History of Present Illness Brian Damico is a 22 year old male who presents to the emergency department with history of ingestion of duloxetine, 60 mg pills, at approximately 8:09 PM. He reported he wanted to harm himself at that time, but no longer feels that way. He reports no side effects of the medication other than feeling hung over currently and slightly nauseated. He reports he has had previous suicide attempts in the past. He denies ingesting any other medication. He is not sure exactly how many pills he ingested but perhaps the balance of the bottle. The ER has indicated there were 7 pills in a bottle that was labeled as having 30 pills. Patient believes he took more than 23 as he believes the bottle had at least 60 in it. I was not able to visualize the particular bottle at the time I evaluated the patient. He does report history of papillary thyroid carcinoma. He recently underwent radioactive iodine treatment at [facility]. He reports he is back on his thyroid hormone. He was recently discharged from the neuropsychiatric unit on December 15, having been hospitalized there since the for suicidal ideation and self-harm. Review of Systems General: Reports: 10 or more systems reviewed and unremarkable except in HPI and below Medications/Allergies Home Medications Medication Instructions Recorded Confirmed Last Taken Type duloxetine 60 mg capsule,delayed 120 mg PO DAILY #60 caps 11/29/22 12/12/22 Unknown Rx release (Cymbalta) levothyroxine 300 mcg tablet 300 mcg PO DAILY 12/12/22 12/12/22 Unknown History (Synthroid) levothyroxine 50 mcg capsule 50 mcg PO DAILY 12/12/22 12/12/22 Unknown History (Tirosint) buspirone 30 mg tablet 30 mg PO DAILY #30 tabs 12/15/22 Unknown Rx Allergies Allergy/AdvReac Type Severity Reaction Status Date / Time lithium Allergy Unknown Unknown Verified 12/12/22 20:04 coconut oil AdvReac Intermediate He stated Verified 12/12/22 20:04 he turned red. nutmeg seasoning Allergy Unknown Unknown Uncoded 12/12/22 20:04 Mice AdvReac Severe He stated Uncoded 12/12/22 20:04 he got hives and couldn't breathe PFSH Acute PFSH: Medical History Attention-deficit hyperactivity disorder, combined type Borderline personality disorder Chronic post-traumatic stress disorder Low income Metastasis to lymph nodes Migraine headache Post-traumatic stress disorder, chronic Psychiatric care Surgical History Hx of hernia repair Hx of neck surgery Family History Other Dementia Diabetes Hypertension Lung disease Psychiatric illness Social History Smoking and tobacco status: never smoked Second hand smoke exposure: Yes Alcohol intake: never Substance/Drug Use: never Adopted: No Caregiver/support person: No Lives independently: Yes Household members: family Housing: House Marital status: Single Number of children: 0 Number of grandchildren: 0 Highest education level completed: High School Graduate service: No Current occupational status: student Current occupational exposures/hazards: No Pets and animals: Yes Pets & animals: cat(s) and dog(s) Leisure activites: art, reading and other Leisure activities details: video games Sexually active: No Current gender identity: Male Sun/Baptist: Other Special sun needs: No Agree to transfusion: Yes Financial difficulty paying for basics: Not Very Hard Vitals/I&O/Wt Last Vital Signs Pulse 92 12/15/22 23:18 Resp 18 12/15/22 23:18 BP 150/76 12/15/22 23:18 Pulse Ox 96 12/15/22 23:18 O2 Del Method Room Air 12/15/22 23:18 Weight last 48 hrs Weight 122.47 kg Physical Exam Narrative: General exam demonstrates an articulate male, in no apparent distress, with a heart rate of 90 HEENT: Atraumatic normocephalic. Oropharynx clear. Neck is supple. Thyroidectomy scar noted. Cardiovascular regular rate and rhythm without murmur Lungs clear Abdomen is soft. No obvious organomegaly. exam deferred Extremities no cyanosis clubbing or edema. Some excoriations and abrasions are noted of the wrist and forearm which appear days old which he states are self-harm. He denies any new areas. No evidence of infection. Neuro no obvious focal deficits Data 12/15/22 22:36 12/15/22 22:36 Other Labs: Calcium, albumin is normal. Liver function tests normal with the exception of ALT of 66. Urinalysis negative Urine drug screen negative Salicylate level 0.5, acetaminophen level less than 5 EKG demonstrates sinus rhythm, normal axis, normal QT and QTc. Sinus arrhythmia is noted. I reviewed this personally. A&P Assessment and plan (1) Drug overdose, intentional: Patient admits to intentional overdose of duloxetine, unknown amount. Observation in ICU, on telemetry, monitoring for any severe side effects of overdose including cardiac arrhythmia Repeat EKG and electrolytes, CBC in the morning Continue supportive care with IV fluids This overdose is potentially life-threatening, warranting close observation and follow-up. (2) Suicidal ideation: Psychiatric consultation. Discussed in detail with patient 96-hour hold is being arranged by emergency department physician. (3) Abrasions of multiple sites: Patient with multiple abrasions. No evidence of infection. These appear to be healing. No treatment is needed currently. (4) Papillary thyroid carcinoma: Patient with history of metastatic papillary thyroid carcinoma. He recently got radioactive iodine. He is back on his thyroid hormone. When his medication list is reconciled, this will be restarted. Plan Other medical problems as outlined in past medical history Full code Low risk for DVT, no prophylaxis necessary Attestations Medical Necessity Statement*: Will need greater than 2 midnight stay for evaluation and treatment of suicidal ideation with overdose. Diagnoses Drug overdose, intentional T50.902A Suicidal ideation R45.851 Abrasions of multiple sites T07.XXXA Papillary thyroid carcinoma C73 Time Spent (min) 40
[2022-12-16] MEDS: sodium chloride 0.9% 1,000 ML 100 ML IV ×2 (01:15→11:34)
[2022-12-16 04:40] LABS: Basophils % 0.4 %; Eosinophils # 0.3 10^3/uL (0.0-0.8); Lymphocytes # 1.7 10^3/uL (0.8-4.8); Lymphocytes % 21.7 %; Mean Corpuscular HGB Conc 32.3 g/dL (30-55); Mean Corpuscular Hemoglobin 26.2 pg (27-33); Mean Corpuscular Volume 81.3 fl (82-101); Mean Platelet Volume 11.9 fL (7.4-10.4); Monocytes # 0.7 10^3/uL (0.2-0.9); Monocytes % 8.2 %; Neutrophils # 5.17 10^3/uL (1.8-7.7); Neutrophils % 65.4 %; Nucleated Red Blood Cells % 0 %; Platelet Count 188 10^3/cmm (157-399); Red Blood Count 5.41 10^6/uL (3.85-5.65); Red Cell Distribution Width 12.5 % (12.1-15.1); White Blood Count 7.91 10^3/uL (3.29-11.43)
[2022-12-16 05:00] LABS: Alanine Aminotransferase 62 U/L (0-41); Albumin Level 4.5 g/dL (3.5-5.2); Alkaline Phosphatase 93 U/L (40-130); Anion Gap 14.8 (5-19); Aspartate Amino Transferase 25 U/L (0-40); Blood Urea Nitrogen 14 mg/dL (6-20); Calcium 9.3 mg/dL (8.5-10.5); Carbon Dioxide 27 mmol/L (22-29); Chloride 106 mmol/L (98-107); Globulin 2.5 g/dL (1.3-4.6); Glomerular Filtration Rate 120.9 mL/min (90-130); Glucose 97 mg/dL (65-115); Osmolality Calculated 298 mOsm/kg (285-295); Potassium 3.8 mmol/L (3.5-5.1); Sodium 144 mmol/L (136-145); Total Bilirubin 0.4 mg/dL (0.15-1.2)
--- NOTE | 2022-12-16 07:29 | PC.NURSE ---
Q15 minute checks are being charted on paper by the 1:1 sitter.
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
--- NOTE | 2022-12-16 08:00 | ECG_ITS ---
[facility] Test Date: 2022-12-16 Pat Name: Brian Damico Department: Room: [facility] Gender: Male Clam Grader: : 2000 Requested By: Vince Dixon Order Number: [id number] Flannery MD: Jelly Barajas M.D. Measurements Intervals [place] Rate: 60 P: 47 VT: 148 QRS: 34 QRSD: 95 T: 45 QT: 377 QTc: 380 Interpretive Statements SINUS RHYTHM WITH SINUS ARRHYTHMIA Compared to ECG 12/15/2022 23:38:44 No significant changes Electronically Signed On 12-16-2022 11:59:27 CDT by Jelly Barajas M.D. [id number]
[2022-12-16] MEDS: levothyroxine 50 mcg Tablet PO (08:21)
[2022-12-16] MEDS: levothyroxine 100 mcg Tablet 300 MCG PO (08:21)
--- NOTE | 2022-12-16 12:05 | PC.NURSE ---
Spoke with pt's father and the father stated that the pt said that he had medications hidden throughout the house. The father stated that they have gone throughout the house and haven't found any andthat the pt also informed him that the medications that he OD on were old and have been in the house for awhile.
--- NOTE | 2022-12-16 18:27 | PC.NURSE ---
Report called to NPU dept and awaiting security at this time to take the pt to the dept.
--- NOTE | 2022-12-16 20:47 | P.PN_ITS ---
Subjective Subjective: This morning he was feeling nauseated and somewhat hung over , during the visit in the afternoon he is feeling better. Nausea has resolved. No other discomfort. Vitals/I&O/Wt Last Vital Signs Temp 99.1 F 12/16/22 19:58 Pulse 72 12/16/22 19:58 Resp 16 12/16/22 19:58 BP 125/85 12/16/22 19:58 Pulse Ox 97 12/16/22 19:58 O2 Del Method Room Air 12/16/22 19:58 12/16/22 12/16/22 12/16/22 06:59 14:59 22:59 Intake Total 480 / 480 1720 / 1720 1240 / 2960 Output Total 800 / 800 Balance 480 / 480 920 / 920 1240 / 2160 Weight last 48 hrs Weight 119.975 kg Weight 119.975 kg Weight 122.47 kg Physical Exam Const: COMMON NORMALS: patient oriented x3 and alert GENERAL APPEARANCE: cooperative ORIENTATION/CONSCIOUSNESS: Yes awake HENMT: COMMON NORMALS: oropharynx normal Eye: OTHER: Dilated pupils this morning, resolved on revisit. Neck/C-Spine: COMMON NORMALS: no JVD Resp: COMMON NORMALS: normal respiratory effort and clear to auscultation bilaterally AUSCULTATION: clear to auscultation bilaterally Cardio: COMMON NORMALS: no JVD, regular rhythm, S1 normal heart sound present, S2 normal heart sound present and No murmurs present (Cardio) RHYTHM: regular rhythm HEART SOUNDS: S1 normal heart sound present and S2 normal heart sound present GI: COMMON NORMALS: Normal to inspection, nondistended, normoactive bowel sounds present, Soft to palpation and non-tender PALPATION: Yes Soft to p alpation Extremity: COMMON NORMALS: no joint enlargement and no pedal edema Neuro: COMMON NORMALS: patient oriented x3 and moves all extremities SENSORIUM/ORIENTATION: Yes alert Skin: COMMON NORMALS: no rashes or lesions noted GENERAL SKIN EXAM: no rashes or lesions noted Data 12/16/22 04:00 12/16/22 04:00 A&P Assessment and plan (1) Drug overdose, intentional: This morning nauseated, dilated pupils, on revisit both have resolved. He is doing well from medical perspective. Maintaining blood pressure. Oxygenation. Discussed with psychiatry, as per prior discussion also by psychiatry with him to transfer to neuropsychiatric unit for additional assessment and care. Reviewed CBC, WBC normal. Reviewed chemistry, no electrolyte abnormalities. Minimal pneumonitis. Reviewed UA, unremarkable. Reviewed UDS. Reviewed EKG. QTc 380. Stop IV fluid. (2) Suicidal ideation: Discussed with psychiatry. Continue assessment on NPU. 96-hour hold (3) Abrasions of multiple sites: Patient with multiple abrasions. No evidence of infection. These appear to be healing. (4) Papillary thyroid carcinoma: Patient with history of metastatic papillary thyroid carcinoma. He recently got radioactive iodine. He is back on his thyroid hormone. When his medication list is reconciled, this will be restarted. Continue levothyroxine. Plan Other medical problems as outlined in past medical history Full code Low risk for DVT, no prophylaxis necessary Attestations 2 Medical Necessity Statement*: Continue hospitalization for assessment and management of depression, suicide ideation and attempt with medication overdose. and High MDM includes number and complexity of problems actively addressed during encounter and amount and/or complexity of data reviewed/ordered [ resulted lab(s)/test(s) and other healthcare professional discussion] as documented Diagnoses Drug overdose, intentional T50.902A Suicidal ideation R45.851 Abrasions of multiple sites T07.XXXA Papillary thyroid carcinoma C73
[2022-12-17 06:00] VITALS: BP 104/66; PULSE 67; RESP 16; TEMP 36.9; O2SAT 95
[2022-12-17] MEDS: levothyroxine 100 mcg Tablet 300 MCG PO (09:03)
[2022-12-17] MEDS: levothyroxine 50 mcg Tablet PO (09:03)
[2022-12-17 13:21] VITALS: BP 113/73; PULSE 111; RESP 16; TEMP 37.3; O2SAT 96
--- NOTE | 2022-12-17 14:23 | W.PM.NPUPNS ---
Subjective NPU Subjective: Patient presented today reporting that he is feeling really suicidal. He reports he just wants to end it all. He had no real explanation for what had changed so abruptly. He reported that dying was all he really was thinking about. We talked about his mood dysregulation and borderline personality disorder concerns. He reports that he does not have borderline personality disorder that he has bipolar disorder and began focusing on how he cannot imagine how he is going to go on and survive this. 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 Mental Status Exam MSE Comments: This is an obese white male in hospital scrubs with limited grooming and adequate eye contact. No abnormal movements except for mild psychomotor retardation. Cooperative with exam in mild to moderate distress. Speech was decreased rate and volume. Mood described as I feel suicidal, affect slightly subdued. Thought process organized. Thought content: Patient endorsed current suicidal but denied homicidal ideation, no delusions reported noted, he denies any auditory or visual hallucinations. Attention and concentration were intact and memory appeared reliable but none were formally tested. He is alert and oriented x3. Insight and judgment appear limited versus impaired impulse control appears impaired and intellectual ability appeared limited. Vitals/I&O/Wt Last Vital Signs Temp 99.1 F 12/17/22 13:21 Pulse 111 H 12/17/22 13:21 Resp 16 12/17/22 13:21 BP 113/73 12/17/22 13:21 Pulse Ox 96 12/17/22 13:21 O2 Del Method Room Air 12/17/22 13:21 12/16/22 12/17/22 12/17/22 22:59 06:59 14:59 Intake Total 1240 / 2960 240 / 240 Output Total 800 / 800 Balance 1240 / 2160 -560 / -560 Weight last 48 hrs Weight 119.975 kg Weight 119.975 kg Weight 122.47 kg Data NPU 12/16/22 04:00 12/16/22 04:00 A&P Assessment and plan (1) Borderline personality disorder: (2) Post-traumatic stress disorder, chronic: (3) Attention-deficit hyperactivity disorder, combined type: (4) Autism spectrum disorder: (5) S/P thyroidectomy: (6) Hypothyroid: Qualifiers: Hypothyroidism type: postoperative Qualified Code(s): E89.0 - Postprocedural hypothyroidism (7) Suicidal ideation: (8) HTN (hypertension): (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 Continue current medication. Except hold Cymbalta 2. Admit to the neuropsychiatric unit when medically stable 3. Continue one-to-one until he gets to the neuropsychiatric unit 4. Need to explore options for active DBT treatment and increased outpatient therapy given the limited efficacy of inpatient treatment other than for safety management. Involuntary Hold Information 96 Hour Hold: 96 Hour Involuntary Admission: Yes 96 Hour Hold Ending Date: 12/21/22 96 Hour Hold Ending Time: 00:01 Attestations U Medical Necessity Statement*: Inpatient hospitalization is medically necessary and the clinically appropriate intervention, at this time. We will monitor medications and make changes as indicated. Likely length of stay is three to five days. Coding Level of Care Code Acute Code for g Fwd Diagnoses Borderline personality disorder F60.3 Post-traumatic stress disorder, chronic F43.12 Attention-deficit hyperactivity disorder, combined type F90.2 Autism spectrum disorder F84.0 S/P thyroidectomy E89.0 Hypothyroid E89.0 Hypothyroidism type: postoperative Suicidal ideation R45.851 HTN (hypertension) I10 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
[2022-12-17 19:54] VITALS: BP 154/103; PULSE 79; RESP 17; TEMP 37.2; O2SAT 96
--- NOTE | 2022-12-17 20:08 | PC.NURSE ---
PT ON PHONE SEVERAL TIMES ALREADY THIS NIGHT , TO HIS FATHER. STATES FATHERS PHONE IS THROUGH SATELLITE AND KEEPS CUTTING IN AND OUT. PT STATES FEELING LIKE HE DOESN'T HAVE THE STRENGTH TO KEEP FIGHTING TO LIVE. ENCOURAGEMENT GIVEN THAT EACH DAY IS A NEW DAY AND IT IS UP TO HIM (THE PT) TO DECIDE HOW EACH DAY IS TO GO. PT DID CONTRACT FOR SAFETY AND PROMISED THAT HE WOULD COME TALK TO EITHER [facility] OR THIS NURSE IF THOUGHTS GET TO WHERE HE CAN'T HANDLE THEM.
[2022-12-18 06:38] VITALS: BP 109/70; PULSE 56; RESP 15; O2SAT 96
[2022-12-18] MEDS: levothyroxine 50 mcg Tablet PO (10:10)
[2022-12-18] MEDS: levothyroxine 100 mcg Tablet 300 MCG PO (10:10)
--- NOTE | 2022-12-18 13:02 | P.NPUPN_ITS ---
Subjective NPU Subjective: Patient presented today in a 180 degree presentation from yesterday reporting that he is worked with his family on a plan for safe discharge and that they put together a list and he wrote me a note outlining everything reporting that he was safe to go and he was sorry about yesterday. We discussed the importance of was not making rash/major decisions and that we would see how he is doing t omorrow and once again stressed our concern that his behavior represents cluster B pathology and he needs cognitive based therapy/DBT. Mental Status Exam MSE Comments: This is an obese white male in hospital scrubs with limited grooming and adequate eye contact. No abnormal movements except for mild psychomotor retardation. Cooperative with exam in no acute distress. Speech was more normal rate and volume. Mood described as I feel much better, affect slightly subdued. Thought process organized. Thought content: Patient denied suicidal or homicidal ideation, no delusions reported noted, he denies any auditory or visual hallucinations. Attention and concentration were intact and memory yusuf eared unreliable but none were formally tested. He is alert and oriented x3. Insight and judgment appear limited versus impaired impulse control appears impaired and intellectual ability appeared limited. Vitals/I&O/Wt Last Vital Signs Temp 98.9 F 12/17/22 19:54 Pulse 56 L 12/18/22 06:38 Resp 15 12/18/22 06:38 BP 109/70 12/18/22 06:38 Pulse Ox 96 12/18/22 06:38 O2 Del Method Room Air 12/17/22 19:54 Weight last 48 hrs Weight 119.975 kg Data NPU 12/16/22 04:00 12/16/22 04:00 A&P Assessment and plan (1) Borderline personality disorder: (2) Post-traumatic stress disorder, chronic: (3) Attention-deficit hyperactivity disorder, combined type: (4) Autism spectrum disorder: (5) S/P thyroidectomy: (6) Hypothyroid: Qualifiers: Hypothyroidism type: postoperative Qualified Code(s): E89.0 - Postprocedural hypothyroidism (7) Suicidal ideation: (8) HTN (hypertension): (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 Continue current medication. Except hold Cymbalta 2. Encourage individual, group and milieu therapies. 3. Continue every 15 minute checks for safety 4. Need to explore options for active DBT treatment and increased outpatient therapy given the limited efficacy of inpatient treatment other than for safety management. After reporting great despair yesterday, consistent with cluster B pathology concerns, patient presented today reporting that he is much better and that he has a plan for successful to go home and that he is not lethal. Continuing to most of the concerns that this is a cluster B/borderline/histrionic presentation and that cognitive behavioral therapy/DBT would be the most appropriate treatment moving forward. Involuntary Hold Information 96 Hour Hold: 96 Hour Involuntary Admission: Yes 96 Hour Hold Ending Date: 12/21/22 96 Hour Hold Ending Time: 00:01 Attestations NPU Medical Necessity Statement*: Inpatient hospitalization is medically necessary and the clinically appropriate intervention, at this time. We will monitor medications and make changes as indicated. Likely length of stay is 2-4 days. Coding Level of Care Code Acute Code for g Fwd Diagnoses Borderline personality disorder F60.3 Post-traumatic stress disorder, chronic F43.12 Attention-deficit hyperactivity disorder, combined type F90.2 Autism spectrum disorder F84.0 S/P thyroidectomy E89.0 Hypothyroid E89.0 Hypothyroidism type: postoperative Suicidal ideation R45.851 HTN (hypertension) I10 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
[2022-12-18 14:11] VITALS: BP 128/88; PULSE 76; RESP 17; TEMP 37; O2SAT 97
[2022-12-18] MEDS: acetaminophen 325 mg Tablet 650 MG PO (16:41)
[2022-12-18 20:24] VITALS: BP 131/88; PULSE 6; RESP 18; TEMP 36.6; O2SAT 96
[2022-12-19] MEDS: trazodone 50 mg Tablet PO ×2 (00:32→23:30)
[2022-12-19 06:00] VITALS: BP 95/61; PULSE 55; RESP 16; O2SAT 96
[2022-12-19] MEDS: levothyroxine 50 mcg Tablet PO (06:20)
[2022-12-19] MEDS: levothyroxine 100 mcg Tablet 300 MCG PO (06:24)
--- NOTE | 2022-12-19 10:45 | P.NPUPN_ITS ---
Subjective NPU Subjective: Patient presents today reporting ongoing depression we discussed not restarting Cymbalta but starting Prozac 20 mg p.o. every morning after discussion of the risks, benefits and alternatives he understood and agreed to proceed as documented in this note. We agreed to take it a day at a time and use dad's support that he can come home as a weekend to a more as he is feeling better. We discussed the possibility of discharge in the next 48 hours but allowing how he feels to guide the decision. Mental Status Exam MSE Comments: This is an obese white male in hospital scrubs with limited grooming and adequate eye contact. No abnormal movements except for mild psychomotor retardation. Cooperative with exam in no acute distress. Speech was more normal rate and volume. Mood described as I feel much better, affect slightly subdued. Thought process organized. Thought content: Patient denied suicidal or homicidal ideation, no delusions reported noted, he denies any auditory or visual hallucinations. Attention and concentration were intact and memory appeared unreliable but none were formally tested. He is alert and oriented x3. Insight and judgment appear limited versus impaired impulse control appears impaired and intellectual ability appeared limited. Vitals/I&O/Wt Last Vital Signs Temp 97.9 F 12/18/22 20:24 Pulse 55 L 12/19/22 06:00 Resp 16 12/19/22 06:00 BP 95/61 12/19/22 06:00 Pulse Ox 96 12/19/22 06:00 O2 Del Method Room Air 12/18/22 14:11 12/18/22 12/19/22 12/19/22 22:59 06:59 14:59 Intake Total 240 / 240 Output Total 800 / 800 Balance -560 / -560 Data NPU 12/16/22 04:00 12/16/22 04:00 A&P Assessment and plan (1) Borderline personality disorder: (2) Post-traumatic stress disorder, chronic: (3) Attention-deficit hyperactivity disorder, combined type: (4) Autism spectrum disorder: (5) S/P thyroidectomy: (6) Hypothyroid: Qualifiers: Hypothyroidism type: postoperative Qualified Code(s): E89.0 - Postprocedural hypothyroidism (7) Suicidal ideation: (8) HTN (hypertension): (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 Continue current medication. Except hold Cymbalta 2. Encourage individual, group and milieu therapies. 3. Continue every 15 minute checks for safety 4. Need to explore options for active DBT treatment and increased outpatient therapy given the limited efficacy of inpatient treatment other than for safety management. After reporting great despair 12/17, consistent with cluster B pathology concerns, patient presented 12/18 reporting that he is much better and that he has a plan for successful to go home and that he is not lethal. Continuing to most of the concerns that this is a cluster B/borderline/h istrionic presentation and that cognitive behavioral therapy/DBT would be the most appropriate treatment moving forward. Spoke with father who reports having made necessary plans for signs return. Plan for discharge and feeling safe hopefully in the next 48 hours. Involuntary Hold Information 96 Hour Hold: 96 Hour Involuntary Admission: Yes 96 Hour Hold Ending Date: 12/21/22 96 Hour Hold Ending Time: 00:01 Attestations NPU Medical Necessity Statement*: Inpatient hospitalization is medically necessary and the clinically appropriate intervention, at this time. We will monitor medications and make changes as indicated. Likely length of stay is 1-3 days. Coding Level of Care Code Acute Code for Chg Fwd Diagnoses Borderline personality disorder F60.3 Post-traumatic stress disorder, chronic F43.12 Attention-deficit hyperactivity disorder, combined type F90.2 Autism spectrum disorder F84.0 S/P thyroidectomy E89.0 Hypothyroid E89.0 Hypothyroidism type: postoperative Suicidal ideation R45.851 HTN (hypertension) I10 Metastasis to lymph nodes C77.9 Drug overdose, intentional T50.904Y
[2022-12-19] MEDS: fluoxetine 20 mg Capsule PO (10:58)
[2022-12-19 13:38] VITALS: BP 127/82; PULSE 87; RESP 17; TEMP 37.1; O2SAT 98
[2022-12-19 20:20] VITALS: BP 122/76; PULSE 107; RESP 18; TEMP 37.2; O2SAT 97
[2022-12-19] MEDS: ondansetron 4 MG Tablet PO (22:27)
[2022-12-20 06:00] VITALS: BP 107/66; PULSE 65; RESP 15; TEMP 36.6; O2SAT 97
[2022-12-20] MEDS: levothyroxine 100 mcg Tablet 300 MCG PO (06:07)
[2022-12-20] MEDS: levothyroxine 50 mcg Tablet PO (06:07)
[2022-12-20] MEDS: fluoxetine 20 mg Capsule PO (09:22)
[2022-12-20] MEDS: acetaminophen 325 mg Tablet 650 MG PO (10:59)
--- NOTE | 2022-12-20 11:21 | P.NPUDS_ITS ---
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 mg tablet 50 mg PO DAILY Qty: 30 1RF Discharge Orders: Discharge Order (Routine); Ordered 12/20/22 Ordered By: Darren Lopez Referrals: Jen Cervantes PMHNP [Staff Physician] - 12/24/22 11:45 am Shirley Bryan LPC [Therapist] - Alice House MD [Physician] - 12/28/22 10:15 am Discharge Diet: Regular Discharge Activity: Resume usual activity Patient Instructions: Depression (DC), Help Prevent Suicide (DC), Suicide Prevention (DC), Opioid Safety Discharge Attestations NPU Time Spent in Discharge Care*: less than 30 min Specific Discharge Activities: Specific discharge activities: educating jaskaran ent, discussing with heel caser/social workers/dc planners, documenting/other paperwork and evaluating patient/reviewing data Status at Discharge: Cognitive status at discharge: cognitively intact , Behavioral status at discharge: cooperative , Coding Level of Care Code Acute Chg FW DC note Diagnoses Borderline personality disorder F60.3 Post-traumatic stress disorder, chronic F43.12 Attention-deficit hyperactivity disorder, combined type F90.2 Autism spectrum disorder F84.0 S/P thyroidectomy E89.0 Hypothyroid E89.0 Hypothyroidism type: postoperative Suicidal ideation R45.851 HTN (hypertension) I10 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
[2022-12-20 11:34] VITALS: BP 107/66; PULSE 65; RESP 15; TEMP 36.6; O2SAT 97
--- NOTE | 2022-12-20 13:18 | DCPLANNER ---
IMM completed 12/20/22 @ [id number]. pt was given a copy of rights and he stated he understood his rights.
== END 2022-12-20 13:41 | disposition home or self-care (01) | DRG 918 ==
LOC: ER 12-16 00:08 → ICU 12-16 01:06 → NP 12-16 18:39
PROVIDERS: Admitting Provider Internal Medicine; Emergency Provider Emergency Medicine; Visit Provider Internal Medicine
DX: T43.212A Poisoning by selective serotonin and norepinephrine reuptake inhibitors, intentional self-harm, initial encounter (principal); R45.851 Suicidal ideations; C77.9 Secondary and unspecified malignant neoplasm of lymph node, unspecified; F84.0 Autistic disorder; C73 Malignant neoplasm of thyroid gland; Z82.3 Family history of stroke; F90.2 Attention-deficit hyperactivity disorder, combined type; F60.3 Borderline personality disorder; F43.12 Post-traumatic stress disorder, chronic; E89.0 Postprocedural hypothyroidism; I10 Essential (primary) hypertension; E66.9 Obesity, unspecified; Z68.35 Body mass index [BMI] 35.0-35.9, adult
CPT/HCPCS: 36415; 80053; 80306; 80307; 81001; 84443; 85025; 93005; 97150; 97165; 99238; 99285; J7030; Q0162

== ENCOUNTER → 2022-12-28 10:15 | Outpatient (BNVA) | payer MEDICARE, MEDICAID, OTHER, SELFPAY ==
[2019-12-08 10:33] VITALS: BP 139/85; BMI 33.7
== END ==
PROVIDERS: Visit Provider Internal Medicine
DX: C73 Malignant neoplasm of thyroid gland; E89.0 Postprocedural hypothyroidism; I10 Essential (primary) hypertension; L98.9 Disorder of the skin and subcutaneous tissue, unspecified; Z79.890 Hormone replacement therapy
CPT/HCPCS: 99214

== ENCOUNTER → 2023-01-31 13:40 | Outpatient (BNVA) | payer MEDICARE, MEDICAID, SELFPAY ==
[2019-12-08 10:33] VITALS: BP 139/85; BMI 33.7
== END ==
PROVIDERS: PCP Family Medicine; Visit Provider Dermatology
DX: R22.9 Localized swelling, mass and lump, unspecified (principal); L81.2 Freckles; D22.5 Melanocytic nevi of trunk; D23.61 Other benign neoplasm of skin of right upper limb, including shoulder; L90.5 Scar conditions and fibrosis of skin
CPT/HCPCS: 99203

== ENCOUNTER 2023-02-18 11:12 | Outpatient (CLI) | payer MEDICARE, MEDICAID, SELFPAY ==
[2019-12-08 10:33] VITALS: BP 139/85; BMI 33.7
[2023-02-18 12:18] LABS: Free T4 Free Thyroxine 1.97 ng/dL (0.82-1.77); Thyroid Stimulating Hormone 0.02 uIU/mL (0.27-4.20)
[2023-02-19 12:04] LABS: T3 Total 147 ng/dL (76-181)
== END 2023-02-18 11:13 | disposition home or self-care (01) ==
PROVIDERS: PCP Family Medicine; Visit Provider Internal Medicine
DX: E03.9 Hypothyroidism, unspecified (principal); C73 Malignant neoplasm of thyroid gland
CPT/HCPCS: 36415; 84439; 84443; 84480

== ENCOUNTER 2023-02-25 12:43 | Outpatient (CLI) | payer MEDICARE, MEDICAID, SELFPAY ==
[2019-12-08 10:33] VITALS: BP 139/85; BMI 33.7
--- NOTE | 2023-02-25 13:17 | US_ITS ---
WS: [id number] THYROID ULTRASOUND HISTORY: LOCALIZED SWELLING,MASS, LUMP/HX OF THYROID CANCER COMPARISON: Thyroid ultrasound 03/08/2022 Status post thyroidectomy. No recurrent mass or adenopathy is noted in the thyroid bed or along the c ervical chains. There are small cervical chain lymph nodes. Normal fatty mirella. IMPRESSION: Status post thyroidectomy. No recurrent mass in the thyroid bed.
== END 2023-02-25 12:44 | disposition home or self-care (01) ==
LOC: RAD 12:43
PROVIDERS: PCP Family Medicine; Visit Provider Dermatology
DX: R22.1 Localized swelling, mass and lump, neck (principal); E89.0 Postprocedural hypothyroidism; Z85.850 Personal history of malignant neoplasm of thyroid
CPT/HCPCS: 76536

== ENCOUNTER 2023-03-12 08:33 | Outpatient (CLI) | payer MEDICARE, MEDICAID, SELFPAY ==
[2019-12-08 10:33] VITALS: BP 139/85; BMI 33.7
[2023-03-12 10:28] LABS: Basophils # 0.1 10^3/uL (0.0-0.1); Basophils % 0.6 %; Eosinophils # 0.3 10^3/uL (0.0-0.8); Eosinophils % 3.3 %; Hematocrit 47.4 % (37-53); Lymphocytes # 1.6 10^3/uL (0.8-4.8); Lymphocytes % 18.9 %; Mean Corpuscular HGB Conc 31.6 g/dL (30-55); Mean Corpuscular Hemoglobin 25.4 pg (27-33); Mean Corpuscular Volume 80.2 fl (82-101); Mean Platelet Volume 12.6 fL (7.4-10.4); Monocytes # 0.5 10^3/uL (0.2-0.9); Monocytes % 5.8 %; Neutrophils # 6.02 10^3/uL (1.8-7.7); Nucleated Red Blood Cells % 0 %; Platelet Count 209 10^3/cmm (157-399); Red Blood Count 5.91 10^6/uL (3.85-5.65); Red Cell Distribution Width 13.2 % (12.1-15.1); White Blood Count 8.47 10^3/uL (3.29-11.43)
[2023-03-12 10:57] LABS: T3 Free 1.6 PG/ML (2.0-4.4); Thyroid Stimulating Hormone 36.92 uIU/mL (0.27-4.20)
[2023-03-14 08:35] LABS: Thyroglobulin AB <1 IU/mL (< or = 1)
[2023-03-23 16:19] LABS: Thyroglobulin Level 109.8 ng/mL
== END 2023-03-12 08:34 | disposition home or self-care (01) ==
LOC: LAB 08:36
PROVIDERS: PCP Family Medicine; Visit Provider Physician Assistant Medical
DX: C73 Malignant neoplasm of thyroid gland (principal)
CPT/HCPCS: 36415; 84432; 84443; 84481; 85025; 86800

== ENCOUNTER 2023-06-12 13:52 | Outpatient (CLI) | payer MEDICARE, MEDICAID, SELFPAY ==
[2019-12-08 10:33] VITALS: BP 139/85; BMI 33.7
--- NOTE | 2023-06-12 13:58 | XRR_ITS ---
PROCEDURE INFORMATION: Exam: XR Thoracolumbar Spine Exam date and time: 06/12/2023 2:27 PM Age: 22 years old Clinical indication: Low back pain; Patient HX: HX of thyroid cancer; Additional info: Low back pain/pain in thoracic spine TECHNIQUE: Imaging protocol: Radiologic exam of the thoracolumbar spine. Views: 2 views. COMPARISON: CR XR lumbar spine min 4V [id number] 06/12/2023 2:27 PM FINDINGS: Bones/joints: No evidence of fracture or subluxation. No significant degenerative change. Pedicles are grossly symmetric. Soft tissues: Unremarkable. XR/XR thoracolumbar junct [id number] IMPRESSION: 1. Normal radiographs of the thoracic spine. If there is ongoing clinical concern, consider correlation with MRI.
--- NOTE | 2023-06-12 13:58 | XRR_ITS ---
PROCEDURE INFORMATION: Exam: XR Lumbosacral Spine Exam date and time: 06/12/2023 2:27 PM Age: 22 years old Clinical indication: Low back pain; Patient HX: HX of thyroid cancer; Additional info: Lumbar thoracic back pain TECHNIQUE: Imaging protocol: Radiologic exam of the lumbosacral spine. Views: 4 or 5 views. COMPARISON: CR XR thoracolumbar junct [id number] 06/12/2023 2:27 PM FINDINGS: Bones/joints: No evidence of acute fracture or subluxation. No evidence of dynamic instability. Minimal degenerative change. The sacrum and coccyx are partially obscured by bowel gas/stool. Soft tissues: Grossly unremarkable. XR/XR lumbar spine min 4V [id number] IMPRESSION: 1. No evidence of fracture or subluxation of the lumbar spine. If there is concern for disc pathology or neural impingement, consider correlation with MRI.
== END 2023-06-12 13:53 | disposition home or self-care (01) ==
LOC: RAD 13:53
PROVIDERS: PCP Family Medicine; Visit Provider Nurse Practitioner Family
DX: M54.50 Low back pain, unspecified (principal); M54.6 Pain in thoracic spine
CPT/HCPCS: 72080; 72110

== ENCOUNTER 2023-07-11 01:02 | Inpatient (IN) | payer MEDICARE, MEDICAID, SELFPAY ==
[2019-12-08 10:33] VITALS: BP 139/85; BMI 33.7
[2023-07-11] VITALS (9 sets, daily range): BP systolic 94–150; BP diastolic 58–104; PULSE 73–104; RESP 15–18; TEMP 36.6–36.9; O2SAT 95–98; BMI 39.3
--- NOTE | 2023-07-11 01:10 | CTR_ITS ---
PROCEDURE INFORMATION: Exam: CT Neck With Contrast Exam date and time: 07/11/2023 1:52 AM Age: 22 years old Clinical indication: Mass, lump, or swelling in neck; Right; Prior surgery; Surgery date: 6+ months; Patient HX: HX of thyroid cancer 1 yr ago; Additional info: Right neck and jaw swelling TECHNIQUE: Imaging protocol: Computed tomography of the neck with contrast. Radiation optimization: All CT scans at this facility use at least one of these dose optimization techniques: automated exposure control; mA and/or kV adjustment per patient size (includes targeted exams where dose is matched to clinical indication); or iterative reconstruction. Contrast material: OMNI 350; Contrast volume: 80 ml; Contrast route: INTRAVENOUS (IV); COMPARISON: CT neck wo con [id number] 08/03/2021 1:23 PM RADIATION DOSE METRICS: Total DLP (mGy-cm): 361.21 FINDINGS: Brain: Visualized intracranial structures are normal. Pharynx: Normal fossa of Rosenmuller. Normal tonsillar pillars. Larynx: Normal epiglottis. Prevertebral and retropharyngeal spaces: Unremarkable. Salivary glands: Normal. Glands are normal in size. Thyroid: Prior thyroidectomy. Lymph nodes: Unremarkable. No lymphadenopathy. Trachea: Visualized trachea is unremarkable. Lungs: Lung apices are notable for bronchial wall thickening. Bones/joints: Unremarkable. No acute fracture. Soft tissues: In the subcutaneous tissues of the right cheek, there is a rim enhancing fluid collection measuring 1.3 cm in diameter. Considerable regional subcutaneous edema is noted. There is no abnormal soft tissue gas or radiopaque foreign body. CT/CT neck w con* [id number] IMPRESSION: Exam demonstrates findings of considerable cellulitis involving the right cheek with a 1.3 cm subcutaneous abscess. There is no bony destructive change or significant dental pathology. No radiopaque foreign body.
[2023-07-11 01:17] LABS: Basophils # 0.1 10^3/uL (0.0-0.1); Basophils % 0.6 %; Eosinophils # 0.4 10^3/uL (0.0-0.8); Eosinophils % 4.8 %; Hematocrit 45.6 % (37-53); Lymphocytes # 1.9 10^3/uL (0.8-4.8); Lymphocytes % 20.5 %; Mean Corpuscular HGB Conc 32.9 g/dL (30-55); Mean Corpuscular Hemoglobin 25.8 pg (27-33); Mean Corpuscular Volume 78.5 fl (82-101); Mean Platelet Volume 11.2 fL (7.4-10.4); Monocytes # 0.7 10^3/uL (0.2-0.9); Monocytes % 7.7 %; Neutrophils # 6.12 10^3/uL (1.8-7.7); Neutrophils % 66.2 %; Nucleated Red Blood Cells % 0 %; Platelet Count 231 10^3/cmm (157-399); Red Blood Count 5.81 10^6/uL (3.85-5.65); Red Cell Distribution Width 12.9 % (12.1-15.1); White Blood Count 9.24 10^3/uL (3.29-11.43)
[2023-07-11 01:39] LABS: Lactic Sepsis W/Reflex 1.3 mmol/L (0.5-2.2)
[2023-07-11 01:40] LABS: Alanine Aminotransferase 62 U/L (0-41); Albumin Level 4.7 g/dL (3.5-5.2); Alkaline Phosphatase 101 U/L (40-130); Aspartate Amino Transferase 26 U/L (0-40); Blood Urea Nitrogen 13 mg/dL (6-20); Calcium 9.4 mg/dL (8.5-10.5); Carbon Dioxide 26 mmol/L (22-29); Chloride 103 mmol/L (98-107); Creatinine Clr Calc Pharmacy 227.9517; Globulin 3.1 g/dL (1.3-4.6); Glucose 117 mg/dL (65-115); Osmolality Calculated 293 mOsm/kg (285-295); Sodium 141 mmol/L (136-145); Total Bilirubin 0.2 mg/dL (0.15-1.2); Total Protein 7.8 g/dL (6.6-8.7)
[2023-07-11 01:43] LABS: Anion Gap 16.2 (5-19); Potassium 4.2 mmol/L (3.5-5.1)
[2023-07-11 01:45] LABS: Procalcitonin 0.05 ng/mL (0-0.5)
[2023-07-11] MEDS: iohexol 350 mg/mL 500 mL Btl (per mL) IV (01:53)
--- NOTE | 2023-07-11 02:41 | ED_ITS ---
HPI - General Adult 2 General: Chief complaint: General Medical Stated complaint: swollen jaw Time Seen by Provider: 07/11/23 01:10 History of Present Illness: 22-year-old male presents emerged part w ith complaints of swelling to the right jaw and neck area. He states that approximately 5 days ago he was at washing his face when he felt a pop or burst sensation to the right lower jaw and since that time it has become significantly more swollen and with significant erythema to the right jaw and neck. He denies difficulty with swallowing drinking or eating or breathing. He states he has had some intermittent fevers and chills and he states he does have a history of thyroid cancer and has received 3 treatments of radiation therapy. He denies neck pain or stiffness. He denies dizziness or lightheaded feeling. Associated symptoms: Deny malaise Review of Systems 2 General: Reports: 10 or more systems reviewed and unremarkable except in HPI and below Const: Reports: fever(s); Denies: fatigue or malaise ENMT: Reports: other (Right-sided face and neck swelling); Denies: throat pain or odynophagia Skin/Breast: Reports: erythema and skin swelling PFSH ED 2 PFSH: Medical History Migraine headache Low income Metastasis to lymph nodes Chronic post-traumatic stress disorder Psychiatric care Attention-deficit hyperactivity disorder, combined type Post-traumatic stress disorder, chronic Borderline personality disorder Surgical History Hx of neck surgery Hx of hernia repair Family History Other Dementia Diabetes Hypertension Lung disease Psychiatric illness Social History Smoking and tobacco/nicotine status: never used tobacco/nicotine Second hand smoke exposure: Yes Alcohol intake: never Substance/Drug Use: never Adopted: No Caregiver/support person: No Lives independently: Yes Household members: family Housing: House Marital status: Single Number of children: 0 Number of grandchildren: 0 Highest education level completed: High School Graduate service: No Current occupational status: student Current occupational exposures/hazards: No Pets and animals: Yes Pets & animals: cat(s) and dog(s) Leisure activites: art, reading and other Leisure activities details: video games Sexually active: No Current gender identity: Male Sun/Spiritism: Other Special sun needs: No Agree to transfusion: Yes Physical Exam 2 Narrative: EXAM NARRATIVE: Constitutional: the patient appears well nourished and of normal development. Vital signs as documented. No acute distress at present. Alert and oriented-to person, place, time and situation. Head, eyes, ears, nose, mouth, throat: Normocephalic, atraumatic. Pupils-equal, round, reactive to light. No scleral icterus. Normal-appearing external ears. Normal appearing nasal turbinates, no drainage. No obvious oral lesions, posterior oropharynx without erythema or exudates. Neck: Supple, trachea is midline, significant swelling to the right jaw and right side of his neck. Significantly enlarged left anterior cervical chain lymphadenopathy. There is obvious facial cellulitis to the right side and right ramus and right mandible area. He does have enlarged pre and post auricular lymphadenopathy. No jugular venous distension, or carotid bruits. Carotid upstrokes are brisk bilaterally. Lungs: clear to auscultation to all lung mendoza. Symmetrical rise and fall of chest, no obvious signs of increased work of breathing at present. Cardiac: Regular rate and rhythm, positive S1, S2. No murmurs, rubs or gallops that I can appreciate Abdomen: Soft, non-tender to palpation, normal active bowel sounds to all quadrants. No palpable masses, no organomegaly and abdominal bruits. Extremities: 2+ pulses in the upper extremities that are equal bilaterally, 2+ pulses in the lower extremities that are equal bilaterally. Non-edematous. Moves all extremities well, sensation to all extremities are noted. Skin: Warm, dry, intact. Right-sided facial cellulitis and swelling Course 2 Vital Signs: Vital signs: Vital Signs Temperature 98.1 F 07/11/23 01:03 Pulse Rate 104 H 07/11/23 02:30 Respiratory Rate 16 07/11/23 02:30 Blood Pressure 120/82 07/11/23 02:30 Pulse Oximetry 97 07/11/23 02:30 Oxygen Delivery Me thod Room Air 07/11/23 02:30 MDM - General Adult Medical Decision Making Physical exam completed and documented I did obtain a CBC and a CMP which are essentially normal I did complete a CT scan of the neck/soft tissue for additional evaluation and it did demonstrate significant facial cellulitis and a 1.3 cm abscess that is superficial. Given the patient's immunocompromise state secondary to his thyroid cancer and radiation therapy for concerns of tissue plane scarring of the neck I have contacted the hospitalist physician to admit the patient for IV antibiotics and continued monitoring. I provided vancomycin and Zosyn IV antibiotics. Differential Diagnosis Facial cellulitis, periapical abscess, dental abscess, facial abscess, mastoiditis, malignancy of the mandible, streptococcal pharyngitis, Medical Records I reviewed the patient's medical records. Lab Data I reviewed the patient's lab results. 07/11/23 01:07 07/11/23 01:[address] 07/11/23 01:10 IMPRESSION: Exam demonstrates findings of considerable cellulitis involving the right cheek with a 1.3 cm subcutaneous abscess. There is no bony destructive change or significant dental pathology. No radiopaque foreign body. Laboratory Results WBC 9.24 10^3/uL (3.29-11.43) 07/11/23 01:07 RBC 5.81 10^6/uL (3.85-5.65) H 07/11/23 01:07 Hgb 15.00 g/dL (11.27-16.99) 07/11/23 01:07 Hct 45.6 % (37-53) 07/11/23 01:07 MCV 78.5 fl (82-101) L 07/11/23 01:07 MCH 25.8 pg (27-33) L 07/11/23 01:07 MCHC 32.9 g/dL (30-55) 07/11/23 01:07 RDW 12.9 % (12.1-15.1) 07/11/23 01:07 Plt Count 231 10^3/cmm (157-399) 07/11/23 01:07 MPV 11.2 fL (7.4-10.4) H 07/11/23 01:07 Neut % (Auto) 66.2 % 07/11/23 01:07 Lymph % (Auto) 20.5 % 07/11/23 01:07 Greene % (Auto) 7.7 % 07/11/23 01:07 Eos % (Auto) 4.8 % 07/11/23 01:07 Baso % (Auto) 0.6 % 07/11/23 01:07 Neut # (Auto) 6.12 10^3/uL (1.8-7.7) 07/11/23 01:07 Lymph # (Auto) 1.9 10^3/uL (0.8-4.8) 07/11/23 01:07 Greene # (Auto) 0.7 10^3/uL (0.2-0.9) 07/11/23 01:07 Eos # (Auto) 0.4 10^3/uL (0.0-0.8) 07/11/23 01:07 Baso # (Auto) 0.1 10^3/uL (0.0-0.1) 07/11/23 01:07 Nucleated RBC % (auto) 0 % 07/11/23 01:07 Nucleated RBCs # 0.0 /100WBC 07/11/23 01:07 Sodium 141 mmol/L (136-145) 07/11/23 01:07 Potassium 4.2 mmol/L (3.5-5.1) 07/11/23 01:07 Chloride 103 mmol/L (98-107) 07/11/23 01:07 Carbon Dioxide 26 mmol/L (22-29) 07/11/23 01:07 Anion Gap 16.2 (5-19) 07/11/23 01:07 BUN 13 mg/dL (6-20) 07/11/23 01:07 Creatinine 0.7 mg/dL (0.7-1.2) 07/11/23 01:07 GFR Calculation 141.0 mL/min (90-130) H 07/11/23 01:07 Glucose 117 mg/dL (65-115) H 07/11/23 01:07 Calculated Osmolality 293 mOsm/kg (285-295) 07/11/23 01:07 Lactic Acid 1.3 mmol/L (0.5-2.2) 07/11/23 01:07 Calcium 9.4 mg/dL (8.5-10.5) 07/11/23 01:07 Total Bilirubin 0.2 mg/dL (0.15-1.2) 07/11/23 01:07 AST 26 U/L (0-40) 07/11/23 01:07 ALT 62 U/L (0-41) H 07/11/23 01:07 Alkaline Phosphatase 101 U/L (40-130) 07/11/23 01:07 Total Protein 7.8 g/dL (6.6-8.7) 07/11/23 01:07 Albumin 4.7 g/dL (3.5-5.2) 07/11/23 01:07 Globulin 3.1 g/dL (1.3-4.6) 07/11/23 01:07 Procalcitonin 0.05 ng/mL (0-0.5) 07/11/23 01:07 All radiology interpretation(s) finalized by discharge Discharge Plan Discharge Patient Disposition: Placed in Observation Clinical Impression: Cellulitis and abscess of face, Fever Condition: Stable Prescriptions: No Action sertraline [Zoloft] 100 mg tablet 100 mg PO DAILY Qty: 30 2RF levothyroxine 50 mcg tablet See Rx Instructions .ROUTE .COMPLEX Qty: 90 0RF Dose Instruction: Take 1 tablet by mouth once daily Rx Instructions: Take 1 tablet by mouth once daily levothyroxine [Synthroid] 300 mcg tablet 300 mcg PO DAILY Migraine Formula 250-250-65 mg Tablet 1 tab PO Q6H PRN (Reason: Migraine Headache) Referrals: Sabiha Combs MD [Primary Care Provider] - Coding Level of Care Code ED [employer] for [facility]
[2023-07-11] MEDS: amoxicillin-clav 875-125 mg Tablet 1 TAB PO (02:47)
--- NOTE | 2023-07-11 03:27 | P.HP_ITS ---
Providers/Chief Complaint 2 Primary Care Provider: Sabiha Combs MD Chief Complaint: swollen jaw History of Present Illness Brian Damico is a 22 year old male with a past medical history significant for papillary thyroid carcinoma, migraines, hypertension, autism spectrum disorder, and other comorbidities who presents to the emergency department with right facial swelling, redness, and pain. Patient reports symptoms started about a week ago however symptoms significantly worsen the past 24 hours. He endorses chills and subjective fevers. Palpation worsens symptoms. He denies any pain or problems swallowing. Denies nausea or vomiting. Denies chest pain or shortness of breath. Denies other alleviating or aggravating factors. Does have a history of papillary thyroid cancer treated with radiation with last dose several months ago. He follows at [facility]. Reports he is currently in remission. He is not on chemotherapy. In the emergency department, neck CT showed considerable cellulitis of the right cheek with a 1.3 cm subcutaneous abscess. No bony destruction or significant dental pathology are noted. Discussed results with patient. He denies prior known history of cellulitis. Denies recent antibiotic use. We discussed possible need for drainage, however patient would rather attempt antibiotic therapy first. He understands if he fails to respond, he may need it drained. Review of Systems 2 Narrative: A complete review of systems was obtained and is negative except as stated in HPI. Medications/Allergies Home Medications Medication Instructions Recorded Confirmed Last Taken Type levothyroxine 300 mcg tablet 300 mcg PO DAILY 12/12/22 06/19/23 Unknown History (Synthroid) tpczsjy-tiepqozqcikne-gozpknea 250 1 tab PO Q6H PRN Migraine Headache 12/16/22 06/19/23 Unknown History mg-250 mg-65 mg tablet (Migraine Formula) levothyroxine 50 mcg tablet See Rx Instructions .Route 12/17/22 06/19/23 Unknown Rx .COMPLEX #90 tabs sertraline 100 mg tablet (Zoloft) 100 mg PO DAILY #30 tabs 06/19/23 06/19/23 Unknown Rx Allergies Allergy/AdvReac Type Severity Reaction Status Date / Time lithium Allergy Unknown Unknown Verified 07/11/23 01:07 coconut oil AdvReac Intermediate He stated Verified 07/11/23 01:07 he turned red. nutmeg seasoning Allergy Unknown Unknown Uncoded 07/11/23 01:07 Mice AdvReac Severe He stated Uncoded 07/11/23 01:07 he got hives and couldn't breathe PFSH Acute 2 PFSH: Medical History Migraine headache Low income Metastasis to lymph nodes Chronic post-traumatic stress disorder Psychiatric care Attention-deficit hyperactivity disorder, combined type Post-traumatic stress disorder, chronic Borderline personality disorder Surgical History Hx of neck surgery Hx of hernia repair Family History Other Dementia Diabetes Hypertension Lung disease Psychiatric illness Social History Smoking and tobacco/nicotine status: never used tobacco/nicotine Second hand smoke exposure: Yes Alcohol intake: never Substance/Drug Use: never Adopted: No Caregiver/support person: No Lives independently: Yes Household members: family Housing: House Marital status: Single Number of children: 0 Number of grandchildren: 0 Highest education level completed: High School Graduate service: No Current occupational status: student Current occupational exposures/hazards: No Pets and animals: Yes Pets & animals: cat(s) and dog(s) Leisure activites: art, reading and other Leisure activities details: video games Sexually active: No Current gender identity: Male Sun/Confucianist: Other Special sun needs: No Agree to transfusion: Yes Vitals/I&O/Wt Last Vital Signs Temp 98.1 F 07/11/23 01:03 Pulse 104 H 07/11/23 02:30 Resp 16 07/11/23 02:30 BP 120/82 07/11/23 02:30 Pulse Ox 97 07/11/23 02:30 O2 Del Method Room Air 07/11/23 02:30 Weight last 48 hrs Weight 127.006 kg Physical Exam 2 Narrative: General: Patient is awake and alert. Pleasant. Head: Right lower cheek is swollen. There is mild overlying erythema. Tender to palpation. Neck: No JVD. Cardiovascular: Slightly tachycardic. No gallops. No murmurs. No peripheral edema. Lungs: Clear to auscultation, no use of accessory muscles, no crackles or wheezes. Skin: No jaundice. No rashes. Abdomen: Normal bowel sounds, abdomen soft and nontender. Genito Urinary: Genital exam not performed since complaints not related. Rectal: Rectal exam not performed since no symptoms indicated blood loss. Extremities: No cyanosis or clubbing. Musculoskeletal: 5/5 strength, normal range of motion, no swollen or erythematous joints. Neurological: Moves all 4 extremities. No myoclonus. Data 07/11/23 01:07 07/11/23 01:07 Micro: Microbiology 07/11/23 01:25 Blood Culture - Preliminary Blood SPECIMEN COLLECTED 07/11/23 01:07 Blood Culture - Preliminary Blood SPECIMEN COLLECTED A&P Assessment and plan (1) Cellulitis and abscess of face: Start ceftriaxone Start vancomycin Start clindamycin Serial exams (2) Papillary thyroid carcinoma: History of radioactive ablation and thyroidectomy Patient reports he is on surveillance (3) Hypothyroid: Postsurgical hypothyroidism Continue home Synthroid Qualifiers: Hypothyroidism type: postoperative Qualified Code(s): E89.0 - Postprocedural hypothyroidism (4) Migraine headache: Analgesics as needed (5) Post-traumatic stress disorder, chronic: Continue on sertraline Plan DVT prophylaxis: Lovenox CODE STATUS: Full code Attestations 2 Medical Necessity Statement*: Patient presents with facial cellulitis with small abscess admitting to observation for IV antibiotics and serial exams. Coding Level of Care Code Acute Code for [facility]wd Diagnoses Cellulitis and abscess of face L03.211; L02.01 Papillary thyroid carcinoma C73 Postoperative hypothyroidism E89.0 Hypothyroidism type: postoperative Migraine headache G43.909 Post-traumatic stress disorder, chronic F43.12
[2023-07-11] MEDS: vancomycin 2,000 MG/400 ML PIGGYBACK 200 MG IV ×3 (03:35→20:22)
[2023-07-11] MEDS: acetaminophen 325 mg Tablet 650 MG PO (05:08)
[2023-07-11] MEDS: clindamycin 600 MG/50 ML PREMIX 100 MG IV (05:09)
[2023-07-11] MEDS: piperacillin-tazobactam 3.375 GM in sodium chloride 0.9% (plus) 50 ML IV ×3 (05:59→20:22)
[2023-07-11] MEDS: levothyroxine 100 mcg Tablet 300 MCG PO (06:03)
[2023-07-11] MEDS: cefTRIAXone 1,000 MG in sodium chloride 0.9% (plus) 50 ML 100 MG IV (06:25)
[2023-07-11] MEDS: diphenhydrAMINE 50 mg/mL SDV 1mL IVP (06:26)
[2023-07-11] MEDS: sertraline 100 mg Tablet PO (08:29)
--- NOTE | 2023-07-11 11:39 | P.PN_ITS ---
Subjective 2 Subjective: Patient admitted overnight for Vitals/I&O/Wt Last Vital Signs Temp 98.4 F 07/11/23 07:18 Pulse 84 07/11/23 07:18 Resp 15 07/11/23 07:18 BP 97/58 07/11/23 07:18 Pulse Ox 96 07/11/23 07:18 O2 Del Method Room Air 07/11/23 07:18 07/10/23 07/11/23 07/11/23 22:59 06:59 14:59 Intake Total 490 / 490 50 / 50 Balance 490 / 490 50 / 50 Weight last 48 hrs Weight 132.222 kg Weight 131.542 kg Weight 127.006 kg Physical Exam 2 Const: COMMON NORMALS: no acute distress, patient oriented x3 and alert HENMT: COMMON NORMALS: normocephalic, atraumatic, external ears normal, Normal external nose present, moist oral mucous membranes and oropharynx normal HEAD & SCALP: normocephalic, atraumatic and other (Right lower Cheek- swollen, red , milld induration , mild tenderness to pal) NOSE: Normal external nose present EXTERNAL EAR: Yes external ears normal Eye: COMMON NORMALS: Equal, round and reactive pupils present, EOMs intact bilaterally, conjunctivae normal and no scleral icterus CONJUNCTIVA: Yes conjunctivae normal PUPIL: Yes Equal, round and reactive pupils present Neck/C-Spine: COMMON NORMALS: full ROM, no lymphadenopathy and no JVD Chest: COMMONS NORMALS: normal inspection of the chest Resp: COMMON NORMALS: normal respiratory effort and clear to auscultation bilaterally AUSCULTATION: clear to auscultation bilaterally OTHER: No wheezes or crcakles Cardio: COMMON NORMALS: no JVD, regular rate, regular rhythm, S1 normal heart sound present and S2 normal heart sound present RATE: regular rate RHYTHM: regular rhythm HEART SOUNDS: S1 normal heart sound present and S2 normal heart sound present GI: COMMON NORMALS: Normal to inspection, nondistended, normoactive bowel sounds present, Soft to palpation and non-tender PALPATION: Yes Soft to palpation : OTHER: Not performed Extremity: COMMON NORMALS: normal to inspection and no pedal edema Neuro: COMMON NORMALS: patient oriented x3 SENSORIUM/ORIENTATION: Yes alert OTHER: No gross focal deficits Data 07/11/23 01:07 04/11/24 01:07 Micro: Microbiology 07/11/23 01:25 Blood Culture - Preliminary Blood SPECIMEN COLLECTED 07/11/23 01:07 Blood Culture - Preliminary Blood SPECIMEN COLLECTED A&P Assessment and plan (1) Cellulitis and abscess of face: -Neck CT showed cellulitis of the right cheek with 1.3 cm subcutaneous abscess -Will switch ceftriaxone to Zosyn -Continue vancomycin -Follow blood cultures -Serial examinations, and if worsening symptoms or abscess size will consult surgery for I&D (2) Papillary thyroid carcinoma: History of radioactive ablation and thyroidectomy Patient reports he is on surveillance (3) Hypothyroid: -Postsurgical hypothyroidism -Continue home Synthroid Qualifiers: Hypothyroidism type: postoperative Qualified Code(s): E89.0 - Postprocedural hypothyroidism (4) Migraine headache: -Analgesics as needed (5) Post-traumatic stress disorder, chronic: -Continue on sertraline Plan DVT prophylaxis: Lovenox CODE STATUS: Full code Attestations 2 Medical Necessity Statement*: Patient continues to require care in the hospital for cellulitis and abscess of the right face requiring IV antibiotics and close monitoring. Coding Level of Care Code Acute Code for [facility] Diagnoses Cellulitis and abscess of face L03.211; L02.01 Papillary thyroid carcinoma C73 Postoperative hypothyroidism E89.0 Hypothyroidism type: postoperative Migraine headache G43.909 Post-traumatic stress disorder, chronic F43.12
[2023-07-11] MEDS: ketorolac 30 mg/mL INJ 15 MG IVP (21:28)
[2023-07-12] VITALS (17 sets, daily range): BP systolic 98–149; BP diastolic 63–94; PULSE 57–84; RESP 13–18; TEMP 35.9–36.9; O2SAT 93–98; BMI 39.3
[2023-07-12] MEDS: vancomycin 2,000 MG/400 ML PIGGYBACK 200 MG IV ×2 (03:45→16:56)
[2023-07-12] MEDS: piperacillin-tazobactam 3.375 GM in sodium chloride 0.9% (plus) 50 ML IV ×2 (03:46→21:28)
[2023-07-12] MEDS: levothyroxine 100 mcg Tablet 300 MCG PO (05:01)
[2023-07-12 05:02] LABS: Basophils % 0.5 %; Eosinophils # 0.4 10^3/uL (0.0-0.8); Eosinophils % 5.4 %; Hematocrit 42.5 % (37-53); Lymphocytes # 1.9 10^3/uL (0.8-4.8); Mean Corpuscular Hemoglobin 25.8 pg (27-33); Mean Corpuscular Volume 80.6 fl (82-101); Mean Platelet Volume 11.4 fL (7.4-10.4); Monocytes # 0.6 10^3/uL (0.2-0.9); Monocytes % 8.3 %; Neutrophils # 4.38 10^3/uL (1.8-7.7); Neutrophils % 59.7 %; Nucleated Red Blood Cells % 0 %; Platelet Count 181 10^3/cmm (157-399); Red Blood Count 5.27 10^6/uL (3.85-5.65); Red Cell Distribution Width 12.9 % (12.1-15.1); White Blood Count 7.35 10^3/uL (3.29-11.43)
[2023-07-12 05:18] LABS: Anion Gap 14.1 (5-19); Blood Urea Nitrogen 12 mg/dL (6-20); Calcium 9.1 mg/dL (8.5-10.5); Carbon Dioxide 23 mmol/L (22-29); Chloride 107 mmol/L (98-107); Glucose 104 mg/dL (65-115); Osmolality Calculated 290 mOsm/kg (285-295); Phosphorus 4.6 mg/dL (2.5-4.5); Potassium 4.1 mmol/L (3.5-5.1); Sodium 140 mmol/L (136-145)
--- NOTE | 2023-07-12 09:12 | PC.CHAP ---
Pastoral Care Encounter/Spiritual Assessment Type of Contact [] Declined filling hauler visit [] Patient/Family/Request visit [] Outpatient visit [] Follow-up visit [] Physician referral [] Code/Alert [] Routine visit [] Staff referral [] Actively dying [] Patient sleeping [] Family support [] [] Out of room [] Palliative care [] [x] Receiving care in room [] Pre-surgical visit [] Trauma [] Long length of stay [] ICU visit [] Other: Relational/Emotional Strength [] Patient feels connected with others/family/visitors/staff [] Distress [] Loneliness/isolation [] Abandonment Spirituality of Patient [] Person of Sun [] Attends Yarsani of their Sun [] Believes in Prayer [] Reads Bible or Sikh materials [] There are Spiritual issues to be addressed [employer] Interventions [] Prayer [] Active listening [] Non-anxious presence [] Spiritual/emotional support [] Crisis/trauma care [] Spiritual counseling [] Bereavement support [] Provided bereavement packet [] Provided Bible/devotional materials [] Provided toy/stuffed animal, coloring book to patient or family member [] Provided Communion [] Anointing/[place] [] Salvation [] Completed spiritual assessment [] Other: Impact on Illness or Injury [] Angry [] Fearful [] Anxious [] Often cries [] Exhaustion [] Unable to work [] Unable to attend latter-day [] Unable to walk/stand [] Unable to read [] Unable to drive [] Unable to eat/drink [] Unable to sleep [] Unable to be with family [] Patient intubated [] Other: Summary Time spent with patient
--- NOTE | 2023-07-12 09:14 | P.PN_ITS ---
Subjective 2 Subjective: No acute events overnight Patient seen at his bedside and continues to report right cheek pain. He has no new complaints No fever episodes overnight. Medications: Reviewed: Yes Vitals/I&O/Wt Last Vital Signs Temp 98.3 F 07/12/23 07:26 Pulse 63 07/12/23 07:26 Resp 15 07/12/23 07:26 BP 132/76 07/12/23 07:26 Pulse Ox 97 07/12/23 07:26 O2 Del Method Room Air 07/12/23 07:26 07/11/23 07/12/23 07/12/23 22:59 06:59 14:59 Intake Total 1090 / 1140 900 / 2040 50 / 50 Balance 1090 / 1140 900 / 2040 50 / 50 Weight last 48 hrs Weight 131.678 kg Weight 132.222 kg Weight 131.542 kg Weight 127.006 kg Physical Exam 2 Const: COMMON NORMALS: no acute distress, patient oriented x3 and alert HENMT: COMMON NORMALS: normocephalic, atraumatic, external ears normal, Normal external nose present, moist oral mucous membranes and oropharynx normal HEAD & SCALP: normocephalic, atraumatic and other (Right lower Cheek- swollen, red , induration + , tenderness to palpation) NOSE: Normal external nose present EXTERNAL EAR: Yes external ears normal Eye: COMMON NORMALS: Equal, round and reactive pupils present, EOMs intact bilaterally, conjunctivae normal and no scleral icterus CONJUNCTIVA: Yes conjunctivae normal PUPIL: Yes Equal, round and reactive pupils present Neck/C-Spine: COMMON NORMALS: full ROM, no lymphadenopathy and no JVD Chest: COMMONS NORMALS: normal inspection of the chest Resp: COMMON NORMALS: normal respiratory effort and clear to auscultation bilaterally AUSCULTATION: clear to auscultation bilaterally OTHER: No wheezes or crcakles Cardio: COMMON NORMALS: no JVD, regular rate, regular rhythm, S1 normal heart sound present and S2 normal heart sound present RATE: regular rate RHYTHM: regular rhythm HEART SOUNDS: S1 normal heart sound present and S2 normal heart sound present GI: COMMON NORMALS: Normal to inspection, nondistended, normoactive bowel sounds present, Soft to palpation and non-tender PALPATION: Yes Soft to palpation : OTHER: Not performed Extremity: COMMON NORMALS: normal to inspection and no pedal edema Neuro: COMMON NORMALS: patient oriented x3 SENSORIUM/ORIENTATION: Yes alert OTHER: No gross focal deficits Data 07/12/23 04:55 07/12/23 04:55 Micro: Microbiology 07/11/23 01:25 Blood Culture - Preliminary Blood NEGATIVE TO DATE 07/11/23 01:07 Blood Culture - Preliminary Blood NEGATIVE TO DATE A&P Assessment and plan (1) Cellulitis and abscess of face: -Neck CT showed cellulitis of the right cheek with 1.3 cm subcutaneous abscess -Area seems to be more indurated today -Continue Zosyn, vancomycin -Follow blood cultures -General surgery consulted to evaluate for I&D -Continue pain medications, other supportive care (2) Papillary thyroid carcinoma: History of radioactive ablation and thyroidectomy Patient reports he is on surveillance (3) Hypothyroid: -Postsurgical hypothyroidism -Continue home Synthroid Qualifiers: Hypothyroidism type: postoperative Qualified Code(s): E89.0 - Postprocedural hypothyroidism (4) Migraine headache: -Analgesics as needed (5) Post-traumatic stress disorder, chronic: -Continue on sertraline Plan DVT prophylaxis: Lovenox CODE STATUS: Full code Attestations 2 Medical Necessity Statement*: Patient continues to require care in the hospital for cellulitis and abscess of the right cheek requiring IV antibiotics and evaluation for surgical intervention. . Coding Level of Care Code Acute Code for Chg Fwd Diagnoses Cellulitis and abscess of face L03.211; L02.01 Papillary thyroid carcinoma C73 Postoperative hypothyroidism E89.0 Hypothyroidism type: postoperative Migraine headache G43.909 Post-traumatic stress disorder, chronic F43.12
[2023-07-12] MEDS: sertraline 100 mg Tablet PO (09:31)
[2023-07-12] MEDS: sodium chloride 0.9% 1,000 ML 30 ML IV (11:38)
--- NOTE | 2023-07-12 11:57 | P.ANESASSM_ITS ---
Pre-Anesthetic Assessment Height/Weight: Height 1.83 m Weight 131.678 kg Temp Pulse Resp BP Pulse Ox O2 Del Method 96.9 F L 72 18 149/72 96 Room Air 07/12/23 11:29 07/12/23 11:29 07/12/23 11:29 07/12/23 11:29 07/12/23 11:29 07/12/23 11:29 Preop Diagnosis: cellulitis/abscess of the right cheek Operation Date: 07/12/23 12:00 Proposed Procedures p Incision And Drainage(Right) - Greg Dorsey DO Familial anesthetic complications: none Was Beta Souleymane taken within 24 hours: N/A Was Clonidine taken within 24 hours: N/A Last intake: Intake Last Liquid Date 07/12/23 Last Liquid Time 0800 - liquids Last Solid Date 07/12/23 Last Solid Time 0200 - meal Social No alcohol and No tobacco Exam alert, oriented x 3, clear to auscultation bilaterally and regular rate & rhythm Airway Submandibular: within normal limits Cervical ROM: within normal limits Mallampati: Class II Dentition: full Comments: Comments: large neck circumference, right cheek cellulitus and abscess facial swelling mouth opening unrestricted. Pulmonary None reported CV/HEM None reported None reported Hepatic None reported GI None reported Metabolic Morbid Obesity and Thyroid Disease thyroid cancer, resistent to treatment thyroid removed several rounds of radiation, patient states they are in a waiting period to see if the cancer returns. [facility] [place] None reported Neuropsych Anxiety and Depression Anesthetic Plan ASA status: 3 Medications/Allergies Home Medications Medication Instructions Recorded Confirmed Last Taken Type levothyroxine 300 mcg tablet 300 mcg PO DAILY 12/12/22 07/11/23 1 Day Ago History (Synthroid) ~07/10/23 [id number] 250 1 tab PO Q6H PRN Migraine Headache 12/16/22 07/11/23 Unknown History mg-250 mg-65 mg tablet (Migraine Formula) levothyroxine 50 mcg tablet See Rx Instructions .Route 12/17/22 07/11/23 Unknown Rx .COMPLEX #90 tabs sertraline 100 mg tablet (Zoloft) 100 mg PO DAILY #30 tabs 06/19/23 07/11/23 1 Day Ago Rx ~07/10/23 Allergies Allergy/AdvReac Type Severity Reaction Status Date / Time lithium Allergy Unknown Unknown Verified 07/11/23 01:07 coconut oil AdvReac Intermediate He stated Verified 07/11/23 01:07 he turned red. nutmeg seasoning Allergy Unknown Unknown Uncoded 07/11/23 01:07 Mice AdvReac Severe He stated Uncoded 07/11/23 01:07 he got hives and couldn't breathe Current Medications Generic Name Dose Route Start Last Admin Trade Name Freq PRN Reason Stop Dose Admin Acetaminophen 650 mg 07/11/23 04:22 07/11/23 05:08 Acetaminophen 325 Mg Tablet PO 650 mg Q6H PRN Administration Mild/Mod Pain Or Temp >/= 101 Enoxaparin Sodium 40 mg 07/11/23 04:22 07/12/23 03:46 Enoxaparin 40 Mg/0.4 Ml Syringe SUBCUT Not Given Q24H ERIK Vancomycin/PEG/NADA/Lysine/Water 2,000 mg in 400 mls @ 200 mls/hr 07/11/23 11:30 07/12/23 05:42 Vancocin IV Infused Q8H ERIK Infusion Piperacillin Sod/Tazobactam 50 mls @ 12.5 mls/hr 07/11/23 12:00 07/12/23 08:07 Sod 3.375 gm/ Sodium Chloride IV Infused Q8H ERIK Infusion Protocol Sodium Chloride 1,000 mls @ 30 mls/hr 07/12/23 11:30 07/12/23 11:38 Sodium Chloride 0.9% IV 07/13/23 11:29 30 mls/hr .Q24H ERIK Administration Ketorolac Tromethamine 15 mg 07/11/23 04:22 07/11/23 21:28 Ketorolac 30 Mg/Ml Inj IVP 07/16/23 04:21 15 mg Q6H PRN Administration Severe Pain 7-10 Levothyroxine Sodium 300 mcg 07/11/23 06:30 07/12/23 05:01 Levothyroxine 100 Mcg Tablet PO 300 mcg 0600 ERIK Administration Senna 17.2 mg 07/11/23 21:00 07/11/23 20:22 Sennosides 8.6 Mg Tablet PO Not Given BEDTIME ERIK Sertraline HCl 100 mg 07/11/23 09:00 07/12/23 09:31 Sertraline 100 Mg Tablet PO 100 mg DAILY ERIK Administration PFSH Anesthesia Medical History Migraine headache Low income Metastasis to lymph nodes Chronic post-traumatic stress disorder Psychiatric care Attention-deficit hyperactivity disorder, combined type Post-traumatic stress disorder, chronic Borderline personality disorder Surgical History Hx of neck surgery Hx of hernia repair Family History Other Dementia Diabetes Hypertension Lung disease Psychiatric illness Social History Smoking and tobacco/nicotine status: never used tobacco/nicotine Second hand smoke exposure: Yes Alcohol intake: never Substance/Drug Use: never Adopted: No Caregiver/support person: No Lives independently: Yes Household members: family Housing: House Marital status: Single Number of children: 0 Number of grandchildren: 0 Highest education level completed: High School Graduate service: No Current occupational status: student Current occupational exposures/hazards: No Pets and animals: Yes Pets & animals: cat(s) and dog(s) Leisure activites: art, reading and other Leisure activities details: video games Sexually active: No Current gender identity: Male Sun/Jain: Other Special sun needs: No Agree to transfusion: Yes Data Anesthesia 07/12/23 04:55 07/12/23 04:55 Short CBC 07/11/23 07/12/23 Range/Units 01:07 04:55 WBC 9.24 7.35 (3.29-11.43) 10^3/uL Hgb 15.00 13.60 (11.27-16.99) g/dL Hct 45.6 42.5 (37-53) % MCV 78.5 L 80.6 L (82-101) fl Plt Count 231 181 (157-399) 10^3/cmm Neut % (Auto) 66.2 59.7 % Neut # (Auto) 6.12 4.38 (1.8-7.7) 10^3/uL BMP 07/11/23 07/12/23 01:07 04:55 Sodium 141 140 Potassium 4.2 4.1 Chloride 103 107 Carbon Dioxide 26 23 BUN 13 12 Creatinine 0.7 0.7 Glucose 117 H 104 Calcium 9.4 9.1 Liver Function 07/11/23 Range/Units 01:07 Total Bilirubin 0.2 (0.15-1.2) mg/dL AST 26 (0-40) U/L ALT 62 H (0-41) U/L Alkaline Phosphatase 101 (40-130) U/L Albumin 4.7 (3.5-5.2) g/dL Microbiology 07/11/23 01:25 Blood Culture - Preliminary Blood NEGATIVE TO DATE 07/11/23 01:07 Blood Culture - Preliminary Blood NEGATIVE TO DATE Cardiac Studies: 2 No Data to Display
--- NOTE | 2023-07-12 12:46 | P.CONIM_ITS ---
Providers/Reason For Consult 2 Consulting Physician/Specialty*: Dr. Greg Dorsey, DO/General surgery Reason for Consult*: Right-sided facial abscess Attending Physician: Shayy Trent MD Primary Care Provider: Sabiha Combs MD History of Present Illness History of Present Illness Brian Damico is a 22 year old male who Presented to the hospital with 1 week history of swelling pain redness and purulent drainage from the right side of his face. He reports that when it first opened up it drained into his mouth. He is constant throbbing pain in his right cheek and jaw that does not radiate. Palpation makes pain worse. Nothing makes pain better. He does report fever and chills at home. Denies any diarrhea, constipation, hematochezia and/or melena. He has thyroid cancer and has undergone radiation therapy Review of Systems 2 General: Reports: 10 or more systems reviewed and unremarkable except in HPI and below Medications/Allergies Home Medications Medication Instructions Recorded Confirmed Last Taken Type levothyroxine 300 mcg tablet 300 mcg PO DAILY 12/12/22 07/11/23 1 Day Ago History (Synthroid) ~07/10/23 [id number] 250 1 tab PO Q6H PRN Migraine Headache 12/16/22 07/11/23 Unknown History mg-250 mg-65 mg tablet (Migraine Formula) levothyroxine 50 mcg tablet See Rx Instructions .Route 12/17/22 07/11/23 Unknown Rx .COMPLEX #90 tabs sertraline 100 mg tablet (Zoloft) 100 mg PO DAILY #30 tabs 06/19/23 07/11/23 1 Day Ago Rx ~07/10/23 Allergies Allergy/AdvReac Type Severity Reaction Status Date / Time lithium Allergy Unknown Unknown Verified 07/11/23 01:07 coconut oil AdvReac Intermediate He stated Verified 07/11/23 01:07 he turned red. nutmeg seasoning Allergy Unknown Unknown Uncoded 07/11/23 01:07 Mice AdvReac Severe He stated Uncoded 07/11/23 01:07 he got hives and couldn't breathe Current Medications Generic Name Dose Route Start Last Admin Trade Name Freq PRN Reason Stop Dose Admin Acetaminophen 650 mg 07/11/23 04:22 07/11/23 05:08 Acetaminophen 325 Mg Tablet PO 650 mg Q6H PRN Administration Mild/Mod Pain Or Temp >/= 101 Enoxaparin Sodium 40 mg 07/11/23 04:22 07/12/23 03:46 Enoxaparin 40 Mg/0.4 Ml Syringe SUBCUT Not Given Q24H ERIK Vancomycin/PEG/NADA/Lysine/Water 2,000 mg in 400 mls @ 200 mls/hr 07/11/23 11:30 07/12/23 05:42 Vancocin IV Infused Q8H ERIK Infusion Piperacillin Sod/Tazobactam 50 mls @ 12.5 mls/hr 07/11/23 12:00 07/12/23 08:07 Sod 3.375 gm/ Sodium Chloride IV Infused Q8H ERIK Infusion Protocol Sodium Chloride 1,000 mls @ 30 mls/hr 07/12/23 11:30 07/12/23 11:38 Sodium Chloride 0.9% IV 07/13/23 11:29 30 mls/hr .Q24H ERIK Administration Ketorolac Tromethamine 15 mg 07/11/23 04:22 07/11/23 21:28 Ketorolac 30 Mg/Ml Inj IVP 07/16/23 04:21 15 mg Q6H PRN Administration Severe Pain 7-10 Levothyroxine Sodium 300 mcg 07/11/23 06:30 07/12/23 05:01 Levothyroxine 100 Mcg Tablet PO 300 mcg 0600 ERIK Administration Senna 17.2 mg 07/11/23 21:00 07/11/23 20:22 Sennosides 8.6 Mg Tablet PO Not Given BEDTIME ERIK Sertraline HCl 100 mg 07/11/23 09:00 07/12/23 09:31 Sertraline 100 Mg Tablet PO 100 mg DAILY ERIK Administration PFSH Acute 2 PFSH: Medical History Migraine headache Low income Metastasis to lymph nodes Chronic post-traumatic stress disorder Psychiatric care Attention-deficit hyperactivity disorder, combined type Post-traumatic stress disorder, chronic Borderline personality disorder Surgical History Hx of neck surgery Hx of hernia repair Family History Other Dementia Diabetes Hypertension Lung disease Psychiatric illness Social History Smoking and tobacco/nicotine status: never used tobacco/nicotine Second hand smoke exposure: Yes Alcohol intake: never Substance/Drug Use: never Adopted: No Caregiver/support person: No Lives independently: Yes Household members: family Housing: House Marital status: Single Number of children: 0 Number of grandchildren: 0 Highest education level completed: High School Graduate service: No Current occupational status: student Current occupational exposures/hazards: No Pets and animals: Yes Pets & animals: cat(s) and dog(s) Leisure activites: art, reading and other Leisure activities details: video games Sexually active: No Current gender identity: Male Sun/Yazidism: Other Special sun needs: No Agree to transfusion: Yes Vitals/I&O/Wt Last Vital Signs Temp 96.9 F L 07/12/23 11:29 Pulse 72 07/12/23 11:29 Resp 18 07/12/23 11:29 BP 149/72 07/12/23 11:29 Pulse Ox 96 07/12/23 11:29 O2 Del Method Room Air 07/12/23 11:29 07/11/23 07/12/23 07/12/23 22:59 06:59 14:59 Intake Total 1090 / 1140 900 / 2040 50 / 50 Balance 1090 / 1140 900 / 2040 50 / 50 Weight last 48 hrs Weight 290 lb 4.8 oz Weight 291 lb 8 oz Weight 290 lb Weight 280 lb Physical Exam 2 Narrative: General : Patient is well developed , no acute distress, oriented x3 Head : Normal cephalic, a-traumatic. Ears : Pinnae and external canal are normal. Hearing is normal. Eyes : PERRLA, Sclera and injection are normal. No conjunctival discharge. Nose : Mucous membranes are without erythema. Throat : buccal mucosa is normal, gums are without significant recession or hypertrophy. Lungs : Equal chest rise bilaterally, no use of accessory muscles, trachea is midline. Cor : Rate and rhythm are normal. Abdomen : Soft, ND, NT, no g/r/m Skin: Erythema and induration to right cheek and mandible, no current drainage Extremities : No edema, no cyanosis or clubbing, dorsalis pedis pulses are present bilaterally, non-tender to palpation of calves. Upper extremities are normal bilaterally. Back : non-tender to palpation, no CVA tenderness. Neuro : CN II - XII intact, Upper and lower extremities have equal and full strength Data 07/12/23 04:55 07/12/23 04:55 Micro: Microbiology 07/11/23 01:25 Blood Culture - Preliminary Blood NEGATIVE TO DATE 07/11/23 01:07 Blood Culture - Preliminary Blood NEGATIVE TO DATE A&P Assessment and plan (1) Cellulitis and abscess of face: Plan Incision and drainage of right facial abscess The risks and benefits of the procedure, including but not limited to, bleeding, infection, recurrence, scar, numbness, pain, damage to surrounding structures, were explained to the patient. They are understanding of the risks and wish to proceed. Coding Level of Care Code 90845 Diagnoses Cellulitis and abscess of face L03.211; L02.01
[2023-07-12] MEDS: lidocaine-epi 2% PF 1:200,000 20 mL SDV 10 ML XX (12:54)
[2023-07-12 13:04] LABS: Methicillin-Resist S.aureu PCR NOT DETECTED (NOT DETECTED)
--- NOTE | 2023-07-12 14:15 | ANE.PACU2 ---
Inpatient post-anesthesia follow up: Airway intact: Yes Vital signs: Temperature 97.6 F Pulse Rate 66 Respiratory Rate 14 Blood Pressure 130/71 Pulse Oximetry 98 Oxygen Delivery Me thod Room Air Oxygen Flow Rate 6 Fraction of Inspir ed Oxygen Hydration adequate: Yes Nausea and vomiting: No Pain level: 1 Mental status: Baseline
--- NOTE | 2023-07-12 14:33 | PM.OP ---
Operative Report Date of procedure: July 12, 2023 Pre-op diagnosis: Right facial abscess Post-op diagnosis: same Procedure done: Incision and drainage of right facial abscess Implants: Quarter inch iodoform packing gauze Specimens removed/disposition: Cultures Surgeon: Greg Dorsey DO Anesthesia: General and Local Estimated blood loss (mL): 5 Complications: None apparent Brief History: This is a very pleasant 22-year-old gentleman with a history of thyroid cancer who presented to the hospital with 1 week history of right facial abscess. He reports that it opened and drained into his mouth earlier. Incision and drainage of right facial abscess was indicated. The risk and benefits were explained and documented. Procedure: Patient was wheeled operative room placed on the OR table in supine position. General tracheal intubation was achieved by department anesthesia. The right face was inspected prepped and draped in usual sterile fashion. A timeout was performed. All present were in agreement. 2% lidocaine with epinephrine was used to anesthetize the inferior portion of the abscess at his jawline. A 6 mm incision parallel to his jawline was performed with 15 blade scalpel. Fine hemostats were used to track up to the abscess and break open the abscess cavities. A small amount of purulence was drained and cultures were taken. Abscess cavities were further broken. The wound was then irrigated with normal saline. The wound was then packed with quarter inch iodoform packing gauze. Sterile dressing was applied. Patient tolerated procedure well.
--- NOTE | 2023-07-12 15:18 | PC.NURSE ---
Pt returns from PACU, comfortable. Denying pain at this time. Would like to rest.
--- NOTE | 2023-07-12 17:54 | PC.NURSE ---
Pt reports that they had to stop his last dose of Vancomycin during this hospital stay d/t an allergic reaction. Brian states that he had redness, swelling, and hives with administration. Notified MD. Jose A PETERS'kierra at this time.
[2023-07-12 23:02] LABS: Vancomycin Trough 4.7 ug/mL (10-15)
[2023-07-13] VITALS (7 sets, daily range): BP systolic 94–147; BP diastolic 54–85; PULSE 59–97; RESP 17–22; TEMP 36.4–36.9; O2SAT 96–98
[2023-07-13] MEDS: acetaminophen 325 mg Tablet 650 MG PO (00:48)
[2023-07-13] MEDS: ketorolac 30 mg/mL INJ 15 MG IVP (02:09)
[2023-07-13] MEDS: piperacillin-tazobactam 3.375 GM in sodium chloride 0.9% (plus) 50 ML IV ×3 (03:34→20:42)
[2023-07-13 04:07] LABS: Albumin Level 4.4 g/dL (3.5-5.2); Anion Gap 15.2 (5-19); Blood Urea Nitrogen 12 mg/dL (6-20); Calcium 9.6 mg/dL (8.5-10.5); Carbon Dioxide 22 mmol/L (22-29); Chloride 109 mmol/L (98-107); Creatinine Clr Calc Pharmacy 227.9517; Glucose 131 mg/dL (65-115); Phosphorus 3.9 mg/dL (2.5-4.5); Potassium 4.2 mmol/L (3.5-5.1); Sodium 142 mmol/L (136-145)
[2023-07-13] MEDS: levothyroxine 100 mcg Tablet 300 MCG PO (06:07)
[2023-07-13] MEDS: sertraline 100 mg Tablet PO (08:34)
--- NOTE | 2023-07-13 09:14 | P.PN_ITS ---
Subjective 2 Subjective: No acute events overnight -He is s/p I %D of right cheek abscess. Procedure tolerated Patient seen at his bedside and reports improvement in right cheek pain. He has no new complaints No fever episodes overnight. Medications: Reviewed: Yes Vitals/I&O/Wt Last Vital Signs Temp 97.5 F L 07/13/23 07:37 Pulse 79 07/13/23 07:37 Resp 18 07/13/23 07:37 BP 94/55 07/13/23 07:37 Pulse Ox 98 07/13/23 07:37 O2 Del Method Room Air 07/13/23 07:37 O2 Flow Rate 6 07/12/23 13:50 07/12/23 07/13/23 07/13/23 22:59 06:59 14:59 Intake Total 233.167 / 483.167 250 / 733.167 50 / 50 Balance 233.167 / 482.167 250 / 732.167 50 / 50 Weight last 48 hrs Weight 127.006 kg Weight 131.678 kg Physical Exam 2 Const: COMMON NORMALS: no acute distress, patient oriented x3 and alert HENMT: COMMON NORMALS: normocephalic, atraumatic, external ears normal, Normal external nose present, moist oral mucous membranes and oropharynx normal HEAD & SCALP: normocephalic, atraumatic and other (Right lower Cheek- decreased swelling , dressing in place - CDI) NOSE: Normal external nose present E XTERNAL EAR: Yes external ears normal Eye: COMMON NORMALS: Equal, round and reactive pupils present, EOMs intact bilaterally, conjunctivae normal and no scleral icterus CONJUNCTIVA: Yes conjunctivae normal PUPIL: Yes Equal, round and reactive pupils present Neck/C-Spine: COMMON NORMALS: full ROM, no lymphadenopathy and no JVD Chest: COMMONS NORMALS: normal inspection of the chest Resp: COMMON NORMALS: normal respiratory effort and clear to auscultation bilaterally AUSCULTATION: clear to auscultation bilaterally OTHER: No wheezes or crcakles Cardio: COMMON NORMALS: no JVD, regular rate, regular rhythm, S1 normal heart sound present and S2 normal heart sound present RATE: regular rate RHYTHM: regular rhythm HEART SOUNDS: S1 normal heart sound present and S2 normal heart sound present GI: COMMON NORMALS: Normal to inspection, nondistended, normoactive bowel sounds present, Soft to palpation and non-tender PALPATION: Yes Soft to palpation : OTHER: Not performed Extremity: COMMON NORMALS: normal to inspection and no pedal edema Neuro: COMMON NORMALS: patient oriented x3 SENSORIUM/ORIENTATION: Yes alert OTHER: No gross focal deficits Data 07/12/23 04:55 07/13/23 03:10 A&P Assessment and plan (1) Cellulitis and abscess of face: -Neck CT showed cellulitis of the right cheek with 1.3 cm subcutaneous abscess -Patient is s/p I & D -Continue Zosyn -Vancomycin dc due to allergic reaction -Follow wound cultures -Ct pain medications, other supportive care (2) Papillary thyroid carcinoma: History of radioactive ablation and thyroidectomy Patient reports he is on surveillance (3) Hypothyroid: -Postsurgical hypothyroidism -Continue home Synthroid Qualifiers: Hypothyroidism type: postoperative Qualified Code(s): E89.0 - Postprocedural hypothyroidism (4) Migraine headache: -Analgesics as needed (5) Post-traumatic stress disorder, chronic: -Continue on sertraline Plan DVT prophylaxis: Lovenox CODE STATUS: Full code Attestations 2 Medical Necessity Statement*: Patient continues to require care in the hospital for cellulitis and abscess of the right cheek requiring IV antibiotics . Coding Level of Care Code Acute Code for [facility] Diagnoses Cellulitis and abscess of face L03.211; L02.01 Papillary thyroid carcinoma C73 Postoperative hypothyroidism E89.0 Hypothyroidism type: postoperative Migraine headache G43.909 Post-traumatic stress disorder, chronic F43.12
--- NOTE | 2023-07-13 16:10 | P.PN_ITS ---
Subjective 2 Subjective: Patient seen and examined. Pain controlled Vitals/I&O/Wt Last Vital Signs Temp 97.7 F 07/13/23 12:25 Pulse 63 07/13/23 12:25 Resp 18 07/13/23 12:25 BP 117/75 07/13/23 12:25 Pulse Ox 98 07/13/23 12:25 O2 Del Method Room Air 07/13/23 12:25 O2 Flow Rate 6 07/12/23 13:50 07/13/23 07/13/23 07/13/23 06:59 14:59 22:59 Intake Total 250 / 733.167 410 / 410 50 / 460 Balance 250 / 732.167 410 / 410 50 / 460 Weight last 48 hrs Weight 280 lb Weight 290 lb 4.8 oz Physical Exam 2 Narrative: General: No acute distress, awake alert and oriented x 3 Skin: Erythema and induration greatly improved, no purulence seen today Data 07/12/23 04:55 07/13/23 03:10 Micro: Microbiology 07/12/23 13:14 Gram Stain - Final Face Abscess Culture - Preliminary A&P Assessment and plan (1) Cellulitis and abscess of face: Plan Postoperative day 1 status post incision and drainage of facial abscess Dressing changed Surgically stable for discharge Antibiotics, pain medication and stool softener, along with potential follow-up, placed in chart Wound care in discharge Attestations 2 Medical Necessity Statement*: Per primary Coding Level of Care Code 53025 Diagnoses Cellulitis and abscess of face L03.211; L02.01
[2023-07-14] MEDS: acetaminophen 325 mg Tablet 650 MG PO (00:04)
[2023-07-14] MEDS: piperacillin-tazobactam 3.375 GM in sodium chloride 0.9% (plus) 50 ML IV (03:23)
[2023-07-14 03:37] VITALS: BP 136/84; PULSE 62; RESP 17; TEMP 36.5; O2SAT 96
[2023-07-14] MEDS: levothyroxine 100 mcg Tablet 300 MCG PO (04:47)
--- NOTE | 2023-07-14 04:50 | PC.NURSE ---
Patient came out to nurses' station asking for Levothyroxine. Patient educated that is it due at 6 am, however patient is requesting it early.
[2023-07-14 07:40] VITALS: BP 126/80; PULSE 58; RESP 16; TEMP 36.4; O2SAT 97
[2023-07-14] MEDS: sertraline 100 mg Tablet PO (09:07)
--- NOTE | 2023-07-14 11:47 | P.DS_ITS ---
Discharge Providers Date of Admission: 07/13/23 11:16 Date of Discharge: July 14, 2023 Attending Provider at Admission: Jovan Villa MD Attending Provider at Discharge: Shayy Trent MD Consults: General Surgery Primary Care Provider: Sabiha Combs MD Diagnoses at Discharge Discharge Diagnosis (1) Cellulitis and abscess of face: Status: Acute Reason for Visit Reason for Visit: swollen jaw Hospital Course Hospital Course In summary, Mr Brian Damico is a 22 year old man with PMH of papillary thyroid carcinoma, migraines, hypertension, who presented for further evaluation of right facial swelling, redness, and pain of about one week. In the emergency department, neck CT showed considerable cellulitis of the right cheek with a 1.3 cm subcutaneous abscess. He was admitted for further evaluation and management. Patient was managed with broad spectrum antibiotics. He was evaluated by general surgery and had incision and drainage done . Patient had improvement in his symptoms. He was discharged on Bactrim and will follow with general surgery and his PCP outpatient. Physical Exam Const: COMMON NORMALS: no acute distress, patient oriented x3 and alert HENMT: COMMON NORMALS: normocephalic, atraumatic, moist oral mucous membranes and oropharynx normal HEAD & SCALP: normocephalic, atraumatic and other (Right lower Cheek- decreased swelling , dressing in place - CDI) Eye: COMMON NORMALS: Equal, round and reactive pupils present, EOMs intact bilaterally, conjunctivae normal and no scleral icterus CONJUNCTIVA: Yes conjunctivae normal PUPIL: Yes Equal, round and reactive pupils present Neck/C-Spine: COMMON NORMALS: full ROM, no lymphadenopathy and no JVD Chest: COMMONS NORMALS: normal inspection of the chest Resp: COMMON NORMALS: normal respiratory effort and clear to auscultation bilaterally AUSCULTATION: clear to auscultation bilaterally OTHER: No wheezes or crcakles Cardio: COMMON NORMALS: no JVD, regular rate, regular rhythm, S1 normal heart sound present and S2 normal heart sound present RATE: regular rate RHYTHM: regular rhythm HEART SOUNDS: S1 normal heart sound present and S2 normal heart sound present GI: COMMON NORMALS: Normal to inspection, nondistended, normoactive bowel sounds present, Soft to palpation and non-tender PALPATION: Yes Soft to palpation : OTHER: Not performed Extremity: COMMON NORMALS: normal to inspection and no pedal edema Neuro: COMMON NORMALS: patient oriented x3 SENSORIUM/ORIENTATION: Yes alert OTHER: No gross focal deficits Discharge Data Studies Completed and Pending Completed Studies During Hospitalization Category Date Time Status CT neck w con* [id number] Stat Cat Scan 07/11/23 01:10 Completed Pending at discharge Category Date Time Status Abscess Culture and Gram Stain Routine Lab 07/12/23 13:14 Results Anaerobic Culture Routine Lab 07/12/23 13:14 Results Blood Culture Stat Lab 07/11/23 01:25 Results Radiology Impressions Neck CT 07/11/23 01:10 IMPRESSION: Exam demonstrates findings of considerable cellulitis involving the right cheek with a 1.3 cm subcutaneous abscess. There is no bony destructive change or significant dental pathology. No radiopaque foreign body. Laboratory Results WBC 7.35 10^3/uL (3.29-11.43) 07/12/23 04:55 RBC 5.27 10^6/uL (3.85-5.65) 07/12/23 04:55 Hgb 13.60 g/dL (11.27-16.99) 07/12/23 04:55 Hct 42.5 % (37-53) 07/12/23 04:55 MCV 80.6 fl (82-101) L 07/12/23 04:55 MCH 25.8 pg (27-33) L 07/12/23 04:55 MCHC 32.0 g/dL (30-55) 07/12/23 04:55 RDW 12.9 % (12.1-15.1) 07/12/23 04:55 Plt Count 181 10^3/cmm (157-399) 07/12/23 04:55 MPV 11.4 fL (7.4-10.4) H 07/12/23 04:55 Neut % (Auto) 59.7 % 07/12/23 04:55 Lymph % (Auto) 26.0 % 07/12/23 04:55 [place] % (Auto) 8.3 % 07/12/23 04:55 Eos % (Auto) 5.4 % 07/12/23 04:55 Baso % (Auto) 0.5 % 07/12/23 04:55 Neut # (Auto) 4.38 10^3/uL (1.8-7.7) 07/12/23 04:55 Lymph # (Auto) 1.9 10^3/uL (0.8-4.8) 07/12/23 04:55 [place] # (Auto) 0.6 10^3/uL (0.2-0.9) 07/12/23 04:55 Eos # (Auto) 0.4 10^3/uL (0.0-0.8) 07/12/23 04:55 Baso # (Auto) 0.0 10^3/uL (0.0-0.1) 07/12/23 04:55 Nucleated RBC % (auto) 0 % 07/12/23 04:55 Nucleated RBCs # 0.0 /100WBC 07/12/23 04:55 Sodium 142 mmol/L (136-145) 07/13/23 03:10 Potassium 4.2 mmol/L (3.5-5.1) 07/13/23 03:10 Chloride 109 mmol/L (98-107) H 07/13/23 03:10 Carbon Dioxide 22 mmol/L (22-29) 07/13/23 03:10 Anion Gap 15.2 (5-19) 07/13/23 03:10 BUN 12 mg/dL (6-20) 07/13/23 03:10 Creatinine 0.7 mg/dL (0.7-1.2) 07/13/23 03:10 GFR Calculation 141.0 mL/min (90-130) H 07/13/23 03:10 Glucose 131 mg/dL (65-115) H 07/13/23 03:10 Calculated Osmolality 290 mOsm/kg (285-295) 07/12/23 04:55 Lactic Acid 1.3 mmol/L (0.5-2.2) 07/11/23 01:07 Calcium 9.6 mg/dL (8.5-10.5) 07/13/23 03:10 Phosphorus 3.9 mg/dL (2.5-4.5) 07/13/23 03:10 Magnesium 2.0 mg/dL (1.7-2.3) 07/12/23 04:55 Total Bilirubin 0.2 mg/dL (0.15-1.2) 07/11/23 01:07 AST 26 U/L (0-40) 07/11/23 01:07 ALT 62 U/L (0-41) H 07/11/23 01:07 Alkaline Phosphatase 101 U/L (40-130) 07/11/23 01:07 Total Protein 7.8 g/dL (6.6-8.7) 07/11/23 01:07 Albumin 4.4 g/dL (3.5-5.2) 07/13/23 03:10 Globulin 3.1 g/dL (1.3-4.6) 07/11/23 01:07 Procalcitonin 0.05 ng/mL (0-0.5) 07/11/23 01:07 Vancomycin Trough 4.7 ug/mL (10-15) L 07/12/23 22:31 MRSA (PCR) Not detected (NOT DETECTED) 07/11/23 05:00 Vitals Last Vital Signs Temp 97.6 F 07/14/23 07:40 Pulse 58 L 07/14/23 07:40 Resp 16 07/14/23 07:40 BP 126/80 07/14/23 07:40 Pulse Ox 97 07/14/23 07:40 O2 Del Method Room Air 07/14/23 07:40 O2 Flow Rate 6 07/12/23 13:50 Discharge Plan Discharge Patient Disposition: Home Condition: Stable Prescriptions: New Bactrim DS 800-160 mg tablet 1 tab PO BID 10 Days Qty: 20 0RF hydrocodone-acetaminophen 7.5-325 mg tablet 1 tab PO Q6H PRN (Reason: pain) Qty: 14 0RF Colace 100 mg capsule 100 mg PO BID Qty: 10 0RF Continued sertraline [Zoloft] 100 mg tablet 100 mg PO DAILY Qty: 30 2RF levothyroxine 50 mcg tablet See Rx Instructions .ROUTE .COMPLEX Qty: 90 0RF Dose Instruction: Take 1 tablet by mouth once daily Rx Instructions: Take 1 tablet by mouth once daily levothyroxine [Synthroid] 300 mcg tablet 300 mcg PO DAILY Migraine Formula 250-250-65 mg Tablet 1 tab PO Q6H PRN (Reason: Migraine Headache) Discharge Orders: Discharge Order (Routine); Ordered 07/14/23 Ordered By: Shayy Trent Referrals: Greg Dorsey DO [Physician] - (We have notified your physician's clinic of the need for a follow-up appointment to be scheduled. If you have not heard from them within the next 2 business days, please call them directly. ) Sabiha Combs MD [Primary Care Provider] - 07/19/23 9:30 am Discharge Diet: Usual diet Discharge Activity: Increase activity as tolerated Patient Instructions: Sulfamethoxazole/Trimethoprim (By mouth), Hydrocodone/Acetaminophen (By mouth), Laxative, Stool Softeners (By mouth), Cellulitis (GEN), Opioid Safety Activity Restrictions/Additional Instructions: Change dressing daily with quarter inch plain packing gauze covered by 4 x 4 gauze and tape until it cannot be packed anymore. Do not soak underwater until healed but shower daily and clean with soap and water Discharge Attestations Time Spent in Discharge Care*: greater than 30 min Status at Discharge: Cognitive status at discharge: cognitively intact , Behavioral status at discharge: cooperative , Quality Metrics Clinical Quality Measures [ No reported AMI, CVA or VTE this stay] Coding Level of Care Code [facility] Diagnoses Cellulitis and abscess of face L03.211; L02.01
--- NOTE | 2023-07-14 12:48 | PC.NURSE ---
Medicaid ride set up. Trip ID #[id number]
[2023-07-14 12:49] VITALS: BP 126/80; PULSE 58; RESP 16; TEMP 36.4; O2SAT 97
== END 2023-07-14 15:11 | disposition home or self-care (01) | DRG 603 ==
LOC: ER 03:37 → MEDSURG 03:50
PROVIDERS: Surgery; Admitting Provider Internal Medicine; Emergency Provider Internal Medicine; PCP Family Medicine; Visit Provider Student in an Organized Health Care Education/Training Program
PROC: 0J910ZZ Drainage of Face Subcutaneous Tissue and Fascia, Open Approach (ICD-10-PCS; principal; 2023-07-12 12:00)
DX: L03.211 Cellulitis of face (principal); L02.01 Cutaneous abscess of face; Z85.850 Personal history of malignant neoplasm of thyroid; F43.12 Post-traumatic stress disorder, chronic; E89.0 Postprocedural hypothyroidism
CPT/HCPCS: 12345; 36415; 70491; 80048; 80053; 80069; 80202; 83605; 83735; 84100; 84145; 85025; 87040; 87070; 87075; 87205; 87641; 96365; 96375; 99285; G0378; J0330; J0696; J1100; J1200; J1885; J2250; J2405; J2543; J2704; J3010; J3372; J3490; J7030; Q9967

== ENCOUNTER → 2023-08-12 12:52 | Outpatient (BNVA) | payer MEDICARE, MEDICAID, SELFPAY ==
[2019-12-08 10:33] VITALS: BP 139/85; BMI 33.7
== END ==
PROVIDERS: PCP Family Medicine; Visit Provider Surgery
DX: E89.0 Postprocedural hypothyroidism; R22.0 Localized swelling, mass and lump, head
CPT/HCPCS: 99204; 99214

== ENCOUNTER → 2023-12-06 11:28 | Outpatient (BNVA) | payer MEDICARE, MEDICAID, SELFPAY ==
[2019-12-08 10:33] VITALS: BP 139/85; BMI 33.7
== END ==
PROVIDERS: PCP Family Medicine; Visit Provider Internal Medicine
DX: E89.0 Postprocedural hypothyroidism (principal); C77.9 Secondary and unspecified malignant neoplasm of lymph node, unspecified; C73 Malignant neoplasm of thyroid gland; I10 Essential (primary) hypertension; L98.9 Disorder of the skin and subcutaneous tissue, unspecified; Z79.890 Hormone replacement therapy
CPT/HCPCS: 84439; 84443; 99214

== ENCOUNTER 2024-02-05 13:55 | Emergency (ER) | payer MEDICARE, MEDICAID, SELFPAY ==
[2019-12-08 10:33] VITALS: BP 139/85; BMI 33.7
[2024-02-05 14:12] VITALS: BP 136/92; PULSE 93; RESP 18; TEMP 36.5; O2SAT 97; BMI 42.3
--- NOTE | 2024-02-05 15:13 | ED_ITS ---
HPI - General Adult General: Chief complaint: General Medical Stated complaint: wants isi drain removed Time Seen by Provider: 02/05/24 14:58 Source: patient Mode of arrival: ambulatory Limitations: no limitations History of Present Illness: 23-year-old male who had neck surgery an d had lymph nodes removed at [facility] he has a ISI drain in place he states he has follow-up tomorrow but he want to see if we could remove his drain today. He has no pain denies any fevers has no other complaints Associated symptoms: Deny chest pain, dyspnea, headache(s), nausea, rash or vomiting Related Data Home Medications Medication Instructions Recorded Confirmed [id number]-[id number] 250 1 tab PO Q6H PRN Migraine Headache 12/16/22 01/16/24 mg-250 mg-65 mg tablet (Migraine Formula) methocarbamol 750 mg tablet 750 mg PO BID 10/17/23 01/16/24 Previous Rx's Medication Instructions Recorded hydrocodone 7.5 mg-acetaminophen 1 tab PO Q6H PRN pain #14 tabs 07/13/23 325 mg tablet levothyroxine 300 mcg tablet 300 mcg PO DAILY #100 tabs 12/06/23 (Synthroid) levothyroxine 50 mcg tablet See Rx Instructions .Route 12/06/23 .COMPLEX #90 tabs sertraline 100 mg tablet (Zoloft) 150 mg (1.5 x 100 mg) PO DAILY #45 01/16/24 tabs trazodone 50 mg tablet 50 mg PO DAILY #30 tabs 01/16/24 Allergies Allergy/AdvReac Type Severity Reaction Status Date / Time lithium Allergy Unknown Unknown Verified 02/05/24 14:15 nutmeg oil (Myristica seed Allergy Unknown Unknown Verified 02/05/24 14:15 oil) vancomycin Allergy ALGY-Rash Verified 02/05/24 14:15 coconut oil AdvReac Intermediate He stated Verified 02/05/24 14:15 he turned red. Mice AdvReac Severe He stated Uncoded 02/05/24 14:15 he got hives and couldn't breathe Review of Systems Const: Denies: fever(s), chills, body aches or change in appetite ENMT: Denies: throat pain or dental pain Card: Denies: chest pain Resp: Denies: dyspnea GI: Denies: abdominal pain, nausea, vomiting or diarrhea Musc: Denies: neck pain or back pain Skin/Breast: Denies: rash Neuro: Denies: headache(s) PFSH ED PFSH: Medical History Major depressive disorder, recurrent severe without psychotic features Migraine headache Low income Metastasis to lymph nodes Chronic post-traumatic stress disorder Psychiatric care Attention-deficit hyperactivity disorder, combined type Post-traumatic stress disorder, chronic Borderline personality disorder Surgical History Hx of neck surgery Hx of hernia repair Family History Other Dementia Diabetes Hypertension Lung disease Psychiatric illness Social History Smoking and tobacco/nicotine status: never used tobacco/nicotine Second hand smoke exposure: Yes Alcohol intake: never Substance/Drug Use: never Adopted: No Caregiver/support person: No Lives independently: Yes Household members: family Housing: House Marital status: Single Number of children: 0 Number of grandchildren: 0 Highest education level completed: High School Graduate service: No Current occupational status: student Current occupational exposures/hazards: No Pets and animals: Yes Pets & animals: cat(s) and dog(s) Leisure activites: art, reading and other Leisure activities details: video games Sexually active: No Current gender identity: Male Sun/Congregation: Other Special sun needs: No Agree to transfusion: Yes Physical Exam Const: COMMON NORMALS: no acute distress, patient oriented x3 and healthy appearing HENMT: COMMON NORMALS: normocephalic and atraumatic HEAD & SCALP: normocephalic and atraumatic Eye: COMMON NORMALS: conjunctivae normal CONJUNCTIVA: Yes conjunctivae normal Neck/C-Spine: COMMON NORMALS: full ROM OTHER: ISI drain in place to right neck incisions clean dry and intact no swelling no erythema Resp: COMMON NORMALS: normal respiratory effort Extremity: COMMON NORMALS: normal to inspection Neuro: COMMON NORMALS: patient oriented x3, moves all extremities and no focal motor deficits Psych: COMMON NORMALS: mental status grossly normal, Normal thought process present and cooperative THOUGHT PROCESS: Normal thought process present Skin: COMMON NORMALS: no rashes or lesions noted and no wounds GENERAL SKIN EXAM: no rashes or lesions noted Course Vital Signs: Vital signs: Vital Signs Temperature 97.7 F 02/05/24 14:12 Pulse Rate 93 02/05/24 14:12 Respiratory Rate 18 02/05/24 14:12 Blood Pressure 136/92 02/05/24 14:12 Pulse Oximetry 97 02/05/24 14:12 Oxygen Delivery Me thod Room Air 02/05/24 14:12 MDM - General Adult Medical Decision Making The patient presents here wanting his ISI drain removed. He has no signs of infection here he has an appoint with ENT tomorrow I informed him that is best for him to follow-up with the ENT and have them inspect and remove the drain tomorrow as scheduled. Medical Records I reviewed the patient's medical records. No radiology studies performed this visit Discharge Plan Discharge Patient Disposition: Home Clinical Impression: Visit for wound check Condition: Stable Prescriptions: No Action sertraline [Zoloft] 100 mg tablet 150 mg PO DAILY Qty: 45 1RF trazodone 50 mg tablet 50 mg PO DAILY Qty: 30 2RF levothyroxine [Synthroid] 300 mcg tablet 300 mcg PO DAILY Qty: 100 1RF levothyroxine 50 mcg tablet See Rx Instructions .ROUTE .COMPLEX Qty: 90 0RF Dose Instruction: Take 1 tablet by mouth once daily Rx Instructions: Take 1 tablet by mouth once daily methocarbamol 750 mg tablet 750 mg PO BID Migraine Formula 250-250-65 mg Tablet 1 tab PO Q6H PRN (Reason: Migraine Headache) hydrocodone-acetaminophen 7.5-325 mg tablet 1 tab PO Q6H PRN (Reason: pain) Qty: 14 0RF Discharge Orders: Discharge ED (Routine); Ordered 02/05/24 Ordered By: Ibrahima Curiel Referrals: Sabiha Combs MD [Primary Care Provider] - Discharge Diet: Advance as tolerated Discharge Activity: Resume usual activity [facility] Coding Level of Care Code ED Hair Spinner for [facility]
[2024-02-05 15:17] VITALS: BP 135/87; PULSE 90; O2SAT 98
== END 2024-02-05 15:17 | disposition home or self-care (01) ==
PROVIDERS: Emergency Provider Emergency Medicine; PCP Family Medicine
DX: Z48.03 Encounter for change or removal of drains (principal)
CPT/HCPCS: 99281

== ENCOUNTER 2024-05-04 15:43 | Outpatient (CLI) | payer MEDICARE, MEDICAID, SELFPAY ==
[2019-12-08 10:33] VITALS: BP 139/85; BMI 33.7
--- NOTE | 2024-05-04 15:46 | MR_ITS ---
WS: [id number] MRI THORACIC SPINE WITHOUT CONTRAST TECHNIQUE: Sagittal T1, T2 and STIR imaging. Axial T2 imaging. Noncontrast imaging obtained. CLINICAL INFORMATION: THORACIC PAIN COMPARISON: None. FINDINGS: Mild thoracic curve. No acute compression. No high-grade central canal stenosis. Cord signal is normal. No significant disc extrusions or protrusions. No significant disc bulging. Mild facet arthropathy lower thoracic spine. Normal caliber thoracic aorta. Adrenal glands are normal. MR/MR thoracic spin wo con* [id number] IMPRESSION: 1. Mild thoracic curve. 2. No acute compression fractures. No high-grade central canal stenosis. 3. Cord signal is normal. 4. No acute thoracic spine findings.
== END 2024-05-04 15:44 | disposition home or self-care (01) ==
PROVIDERS: PCP Nurse Practitioner Family; Visit Provider Nurse Practitioner Family
DX: M54.50 Low back pain, unspecified (principal); M54.6 Pain in thoracic spine; Z74.09 Other reduced mobility; Z85.850 Personal history of malignant neoplasm of thyroid; Z98.890 Other specified postprocedural states; M43.8X4 Other specified deforming dorsopathies, thoracic region; M47.894 Other spondylosis, thoracic region
CPT/HCPCS: 72146

== ENCOUNTER → 2024-10-26 13:38 | Outpatient (BNVA) | payer MEDICARE, MEDICAID, SELFPAY ==
[2019-12-08 10:33] VITALS: BP 139/85; BMI 33.7
== END ==
PROVIDERS: PCP Nurse Practitioner Family; Visit Provider Nurse Practitioner Family
DX: M54.9 Dorsalgia, unspecified (principal)
CPT/HCPCS: 99214

== ENCOUNTER → 2024-11-20 09:53 | Outpatient (BNVA) | payer MEDICARE, MEDICAID, SELFPAY ==
[2019-12-08 10:33] VITALS: BP 139/85; BMI 33.7
== END ==
PROVIDERS: PCP Nurse Practitioner Family; Visit Provider Internal Medicine
DX: E89.0 Postprocedural hypothyroidism (principal); C73 Malignant neoplasm of thyroid gland
CPT/HCPCS: 36415; 84432; 84439; 84443; 86800

== ENCOUNTER → 2024-12-22 13:32 | Outpatient (BNVA) | payer MEDICARE, MEDICAID, SELFPAY ==
[2019-12-08 10:33] VITALS: BP 139/85; BMI 33.7
== END ==
PROVIDERS: PCP Nurse Practitioner Family; Visit Provider Nurse Practitioner Family
DX: M54.9 Dorsalgia, unspecified (principal)
CPT/HCPCS: 99214

== ENCOUNTER 2025-03-20 21:11 | Emergency (ER) | payer MEDICARE, MEDICAID, SELFPAY ==
[2019-12-08 10:33] VITALS: BP 139/85; BMI 33.7
--- NOTE | 2025-03-20 21:03 | USR_ITS ---
PROCEDURE INFORMATION: Exam: US Scrotum Exam date and time: 03/20/2025 9:39 PM Age: 24 years old Clinical indication: Scrotum pain; Additional info: Sudden severe L testicular pain TECHNIQUE: Imaging protocol: Real-time ultrasound of the scrotum and contents with color Doppler and image documentation. Total images: 50 COMPARISON: PT IMP PET SCAN WHOLE BODY 10/07/2021 9:54 AM FINDINGS: Right testicle: Normal. No mass. Normal color Doppler and arterial waveforms. No torsion. Right testis measures 12.0 mL volume with maximum dimension 3.8 cm. Left testicle: Normal. No mass. Normal color Doppler and arterial waveforms. No torsion. Left testis measures 12.2 mL volume with maximum dimension 4.0 cm. Epididymides: Normal. Scrotum/soft tissues: No pathologic scrotal wall thickening. No varicocele. No hydrocele. US/US scrotum [id number] IMPRESSION: Normal scrotal ultrasound.
--- NOTE | 2025-03-20 21:04 | CTR_ITS ---
PROCEDURE INFORMATION: Exam: CT Abdomen And Pelvis With Contrast Exam date and time: 03/20/2025 10:32 PM Age: 24 years old Clinical indication: Abdominal pain; Localized; Left lower quadrant (llq); C/O llq and scrotal pain. Negative testicular US while in er. ; Additional info: Sudden severe llq/l scrotal pain after bm TECHNIQUE: Imaging protocol: Computed tomography of the abdomen and pelvis with contrast. Total images: 618 Radiation optimization: All CT scans at this facility use at least one of these dose optimization techniques: automated exposure control; mA and/or kV adjustment per patient size (includes targeted exams where dose is matched to clinical indication); or iterative reconstruction. Contrast material: OMNI 350; Contrast volume: 100 ml; Contrast route: INTRAVENOUS (IV); COMPARISON: 1. PT IMP PET SCAN WHOLE BODY 10/07/2021 9:54 AM 2. US scrotum [id number] 03/20/2025 9:39 PM RADIATION DOSE METRICS: Total DLP (mGy-cm): 1316.07 FINDINGS: Lungs: Insofar as lung bases are included within the field of view, no acute pathologic pulmonary process appreciated. Pleural spaces: No pleural effusion or pneumothorax insofar as the pleural contours are visualized within the field of view. Diaphragm: Small hiatal hernia. Liver: Liver is normal in size with no focal suspicious hepatic lesions or intrahepatic biliary dilatation. Gallbladder and biliary ducts: Gallbladder appears normal; nondistended, thin wall, no stones, no pericholecystic fluid/stranding. Pancreas: Pancreas of normal thickness and contour. Spleen: Spleen normal in size and contour. No focal splenic mass identified. Adrenal glands: Adrenal glands are normal. Kidneys and ureters: Kidneys are normal. No evidence of obstructing urinary tract calculus, hydroureteronephrosis or pyelitis. Stomach and bowel: Moderate burden of colonic stool without distension. No pathologic bowel distension or bowel wall thickening. Stomach distended with fluid and semi-solid debris without pathologic gastric wall thickening, perigastric induration or other manifestations to suggest acute gastritis. Appendix: Normal appendix. Intraperitoneal space: No pathologic peritoneal fluid. No free peritoneal air. Vasculature: Unremarkable. No abdominal aortic aneurysm. No major vessel critical narrowing, occlusion, or aneurysm. Lymph nodes: Unremarkable. No enlarged lymph nodes. Urinary bladder: Bladder adequately distended. No abnormality identified. Reproductive: Prostate gland and seminal vesicles are normal. Bones/joints: Unremarkable. No acute fracture. Soft tissues: Soft tissues are normal as visualized, demonstrating no masses or swelling/induration. Ventral abdominal wall midline umbilical-periumbilical fat-containing hernia without inflammatory manifestations. CT/CT abdomen pelvis w con* [id number] IMPRESSION: No acute abdominal pathologic process identified.
--- NOTE | 2025-03-20 21:05 | ED_ITS ---
HPI - Male Genitourinary 2 General: Chief complaint: Urogenital-Male Stated complaint: testicular pain History of Present Illness: Patient is a 24-year-old male with a past medical history of thyroid cancer in remission who presents to the ED with sudden severe left testicular pain. Seemingly abruptly onset after he was straining to have a bowel movement just prior to arrival. He has no history of abdominal surgery, was told he had a narrow urethra at some point but no surgical history. Denies recently being sick or other illnesses, states he had 1 episode of vomiting with the pain from this. He was given a total of 200 of fentanyl prior to arrival by EMS. He denies any kind of recent trauma. Associated symptoms: Reports vomiting Related Data Home Medications ?Medication ?Instructions ?Recorded ?Confirmed [id number] 250 1 tab PO Q6H PRN Mi graine Headache 12/16/22 12/22/24 mg-250 mg-65 mg tablet (Migraine Formula) Previous Rx's ?Medication ?Instructions ?Recorded trazodone 50 mg tablet 50 mg PO DAILY #30 tabs 12/30 10/22 escitalopram oxalate 10 mg tablet 10 mg PO DAILY #30 t abs 09/22/24 (Lexapro) hydroxyzine HCl 25 mg tablet 25 mg PO BID PRN anxiety #60 tabs 09/22/24 sertraline 100 mg tablet 200 mg (2 x 100 mg) PO DAILY #60 11/17/24 tabs levothyroxine 25 mcg tablet 25 mcg PO DAILY #30 tabs 0 11/26/24 (Synthroid) cyclobenzaprine 10 mg tablet 10 mg PO TID PRN muscle s pasm #90 12/22/24 tabs levothyroxine 300 mcg tablet See Rx Instructions .Rout e 02/11/25 .COMPLEX #100 tabs lactulose 10 gram/15 mL oral 20 g (30 mL) PO QID #473 mL 03/20/25 solution polyethylene glycol 3350 17 4 g PO DAILY #238 grams gram/dose oral powder (Miralax) Allergies Allergy/AdvReac Type Severity Reaction Status Date / Time lithium Allergy Unknown Unknown Verified 03/20/25 21:16 nutmeg oil (Myristica seed Allergy Unknown Unknown Verified 03/20/25 21:16 oil) vancomycin Allergy ALGY-Rash Verified 03/20/25 21:16 coconut oil AdvReac Intermediate He stated Verified 03/20/25 21:16 he turned red. Mice AdvReac Severe He stated Uncoded 03/20/25 21:16 he got hives and couldn't breathe Review of Systems 2 General: Reports: 10 or more systems reviewed and unremarkable except in HPI and below GI: Reports: vomiting : Reports: genital pain PFSH ED 2 PFSH: Medical History (Updated 03/20/25 @ 23:23 by Mark Mosqueda DO) Major depressive disorder, recurrent severe without psychotic features Migraine headache Low income Metastasis to lymph nodes Chronic post-traumatic stress disorder Psychiatric care Attention-deficit hyperactivity disorder, combined type Post-traumatic stress disorder, chronic Borderline personality disorder Surgical History Hx of neck surgery Hx of hernia repair Family History Other Dementia Diabetes Hypertension Lung disease Psychiatric illness Social History Smoking and tobacco/nicotine status: never used tobacco/nicotine Second hand smoke exposure: Yes Alcohol intake: never Substance/Drug Use: never Adopted: No Caregiver/support person: No Lives independently: Yes Household members: family Housing: House Marital status: Single Number of children: 0 Number of grandchildren: 0 Highest education level completed: High School Graduate service: No Current occupational status: student Current occupational exposures/hazards: No Pets and animals: Yes Pets & animals: cat(s) and dog(s) Leisure activites: art, reading and other Leisure activities details: video games Sexually active: No Current gender identity: Male Sun/Sabianist: Other Special sun needs: No Agree to transfusion: Yes Physical Exam 2 Narrative: EXAM NARRATIVE: Patient rolling around in bed due to pain, obese but overall well-appearing, nontoxic, afebrile. External with mild left testicular tenderness, no significant swelling, no erythema edema, no warmth, no bruising. No penile tenderness, no discharge expressed, cremasteric reflex intact bilaterally. Abdomen protuberant but soft, mildly distended, nontender, no CVA tenderness. Breathing comfortably on room air, mildly tachypneic, clear bilateral breath sounds. Normal sinus rhythm with no murmurs, no leg swelling, good cap refill Course 2 Vital Signs: Vital signs: Vital Signs Temperature 98 F 03/20/25 21:13 Pulse Rate 105 H 03/20/25 21:15 Respiratory Rate 20 H 03/20/25 21:15 Blood Pressure 140/90 03/20/25 21:15 Pulse Oximetry 96 03/20/25 21:15 Oxygen Delivery Me thod Room Air, Nasal C annula 03/20/25 21:15 MDM - Male Medical Decision Making -ddx: Testicular torsion, hollow viscus injury, SBO, epididymitis, incarcerated for strangulated hernia, testicular rupture - Patient arrives with abrupt onset of left testicular pain after a bowel movement, appears extremely uncomfortable even after 200 of fentanyl, we will start with basic labs, scrotal ultrasound, CT abdomen pelvis and give Dilaudid for additional pain control and reassess. - Scrotal ultrasound with good testicular flow, no signs of epididymitis, no varicocele or other concerning pathology. CT scan with a moderate amount of stool burden but no SBO, no hollow viscus injury, no concerns of emergent surgical intra-abdominal pathology. Reassuring laboratory studies. He did have a mild to moderate amount of blood on his UA and so with his presentation that had seemingly completely improved after medication and so was thought that he had a mix of a just passed kidney stone in combination with his moderate degree of constipation, while he was here, he had additional straining but did not have a bowel movement. With patient improved but with his CT scan and additional straining, he was given mag citrate, prescribed MiraLAX and lactulose as needed and discharged in stable condition with follow-up advised with PCP in a few days and very strict return precautions given. Lab Data 03/20/25 21:18 03/20/25 21:18 Radiology Impressions Scrotum Ultrasound 03/20/25 21:03 IMPRESSION: Normal scrotal ultrasound. Abdomen/Pelvis CT 03/20/25 21:04 IMPRESSION: No acute abdominal pathologic process identified. Laboratory Results WBC 7.98 10^3/uL (3.29-11.43) 03/20/25 21:18 RBC 5.89 10^6/uL (3.85-5.65) H 03/20/25 21:18 Hgb 14.10 g/dL (11.27-16.99) 03/20/25 21:18 Hct 44.6 % (37-53) 03/20/25 21:18 MCV 75.7 fl (82-101) L 03/20/25 21:18 MCH 23.9 pg (27-33) L 03/20/25 21:18 MCHC 31.6 g/dL (30-55) 03/20/25 21:18 RDW 14.1 % (12.1-15.1) 03/20/25 21:18 Plt Count 198 10^3/cmm (157-399) 03/20/25 21:18 MPV 11.4 fL (7.4-10.4) H 03/20/25 21:18 Neut % (Auto) 66.9 % 03/20/25 21:18 Lymph % (Auto) 22.3 % 03/20/25 21:18 [place] % (Auto) 8.0 % 03/20/25 21:18 Eos % (Auto) 2.1 % 03/20/25 21:18 Baso % (Auto) 0.6 % 03/20/25 21:18 Neut # (Auto) 5.33 10^3/uL (1.8-7.7) 03/20/25 21:18 Lymph # (Auto) 1.8 10^3/uL (0.8-4.8) 03/20/25 21:18 [place] # (Auto) 0.6 10^3/uL (0.2-0.9) 03/20/25 21:18 Eos # (Auto) 0.2 10^3/uL (0.0-0.8) 03/20/25 21:18 Baso # (Auto) 0.1 10^3/uL (0.0-0.1) 03/20/25 21:18 Nucleated RBC % (auto) 0 % 03/20/25 21:18 Nucleated RBCs # 0.0 /100WBC 03/20/25 21:18 Sodium 140 mmol/L (136-145) 03/20/25 21:18 Potassium 4.1 mmol/L (3.5-5.1) 03/20/25 21:18 Chloride 102 mmol/L (98-107) 03/20/25 21:18 Carbon Dioxide 27 mmol/L (22-29) 03/20/25 21:18 Anion Gap 15.1 (5-19) 03/20/25 21:18 BUN 13 mg/dL (6-20) 03/20/25 21:18 Creatinine 0.8 mg/dL (0.7-1.2) 03/20/25 21:18 GFR Calculation 118.8 mL/min (90-130) 03/20/25 21:18 Glucose 117 mg/dL (65-115) H 03/20/25 21:18 Calculated Osmolality 291 mOsm/kg (285-295) 03/20/25 21:18 Lactic Acid 1.1 mmol/L (0.5-2.2) 03/20/25 21:18 Calcium 9.7 mg/dL (8.5-10.5) 03/20/25 21:18 Urine Color Yellow (Yellow) 03/20/25 22:53 Urine Appearance Clear (CLEAR) 03/20/25 22:53 Urine pH 6.0 (5-7) 03/20/25 22:53 Ur Specific [place] 1.074 (1.005-1.030) H 03/20/25 22:53 Urine Protein 1+ (Negative) A 03/20/25 22:53 Urine Glucose (UA) Negative (Normal) 03/20/25 22:53 Urine Ketones Negative (Negative) 03/20/25 22:53 Urine Blood 3+ (Negative) A 03/20/25 22:53 Urine Nitrate Negative (Negative) 03/20/25 22:53 Urine Bilirubin Negative (Negative) 03/20/25 22:53 Urine Urobilinogen 0.2 mg/dL (Negative) 03/20/25 22:53 Ur Leukocyte Esterase Negative (Negative) 03/20/25 22:53 Urine RBC 51-100 /hpf (0-2) H 03/20/25 22:53 Urine WBC 0-5 /hpf (0-5) 03/20/25 22:53 Ur Squamous Epith Cells 0-5 /hpf (0-5) 03/20/25 22:53 Amorphous Sediment Not Reportable 03/20/25 22:53 Urine Bacteria None seen /hpf (NONE) 03/20/25 22:53 Hyaline Casts 0-4 /lpf H 03/20/25 22:53 All radiology interpretation(s) finalized by discharge Discharge Plan Discharge Patient Disposition: Home Clinical Impression: Constipation, Nephrolithiasis Condition: Stable Prescriptions: New polyethylene glycol 3350 [Miralax] 17 gram/dose powder 4 g PO DAILY Qty: 238 0RF lactulose 10 gram/15 mL solution 20 g PO QID Qty: 473 0RF No Action trazodone 50 mg tablet 50 mg PO DAILY Qty: 30 2RF hydroxyzine HCl 25 mg tablet 25 mg PO BID PRN (Reason: anxiety) Qty: 60 1RF escitalopram oxalate [Lexapro] 10 mg tablet 10 mg PO DAILY Qty: 30 1RF sertraline 100 mg tablet 200 mg PO DAILY Qty: 60 2RF levothyroxine [Synthroid] 25 mcg tablet 25 mcg PO DAILY Qty: 30 2RF cyclobenzaprine 10 mg tablet 10 mg PO TID PRN (Reason: muscle spasm) Qty: 90 0RF levothyroxine 300 mcg tablet See Rx Instructions .ROUTE .COMPLEX Qty: 100 3RF Dose Instruction: TAKE 1 TABLET BY MOUTH ONCE DAILY SATURDAY - SATURDAY AND 1/2 TABLET ON SATURDAY Rx Instructions: TAKE 1 TABLET BY MOUTH ONCE DAILY SATURDAY - SATURDAY AND 1/2 TABLET ON SATURDAY Migraine Formula 250-250-65 mg Tablet 1 tab PO Q6H PRN (Reason: Migraine Headache) Discharge Orders: Discharge ED (Routine); Ordered 03/20/25 Ordered By: Mark Mosqueda Referrals: Tamara Chavez FNP [Primary Care Provider, Nurse Practitioner] Discharge Diet: Usual diet Discharge Activity: Resume usual activity Patient Instructions: Opioid Safety, Pain Management, Patient Portal & Joy Instructions Activity Restrictions/Additional Instructions: You were seen for your abdominal/testicular pain, you were evaluated with labs, an ultrasound and CT scan, your pain might have been caused by combination of a just passed kidney stone and moderate constipation acting together. Your CT scan saw no residual kidney stones so this should not be a problem anymore. It did see a moderate amount of stool in your colon and to encourage a bowel movement, you were given a first medication in the ED, after this, take MiraLAX daily and then if in 24 hours you still have not had a bowel movement, use the Lactulose, 1 cup every 6 hours as needed. The biggest thing is to also ensure you stay hydrated. Return to the ED with severe worsening of pain, inability to urinate, continuous vomiting, inability to eat or drink, any other emergent concerns. Print Language: Vietnamese Coding Level of Care Code ED Design Drafter for Gi Allen
[2025-03-20] MEDS: HYDROmorphone 0.5 MG/0.5 ML INJ 1 MG IVP (21:12)
[2025-03-20 21:13] VITALS: BP 140/90; PULSE 87; RESP 18; TEMP 36.6; O2SAT 98; BMI 40.6
[2025-03-20 21:15] VITALS: BP 140/90; PULSE 105; RESP 20; O2SAT 96
--- OUTSIDE RECORDS SUMMARY | 2025-03-20 21:16 | XMS_ITS | Clinical Summary ---
Author Organization [facility] Address [address] [place] [address] Phone Care Team Providers Care Lap Hand Tool Name Role Phone Unavailable Primary Care Provider Unavailabl e Allergies Active Allergy Reactions Criticality Noted Date Comments [place] Other (See Comments) 10/09/2019 Both parents allergic to it, so they assume he is too. Medications propranoloL (INDERAL) 10 mg tablet Take 10 mg by mouth daily. Active Social History Tobacco Use Types Packs/Day Years Used Date Smoking Tobacco: Never Smokeless Tobacco: Never Alcohol Use Standard Drinks/Week Comments Yes 0 (1 standard drink = 0.6 oz pur e alcohol) Sex and Gender Information Value Date Recorded Sex Assigned at Not on file Legal Sex Male 2:59 PM CDT Gender Identity Not on file Sexual Orientation Not on file Last Filed Vital Signs Vital Sign Reading Time Taken Comments Blood Pressure 114/68 10/09/2019 6:39 PM CDT Pulse - - Temperature 36.9 C (98.4 F) 10/09/2019 3:15 PM CDT Respiratory Rate 16 10/09/2019 6:39 PM CDT Oxygen Saturation 97% 10/09/2019 6:39 PM CDT Inhaled Oxygen Concentration - - Weight 106.6 kg (235 lb) 10/09/2019 3:15 PM CDT Height 179.1 cm (5' 10.5 ) 10/09/2019 3:15 PM CD T Body Mass Index 33.24 10/09/2019 3:15 PM CDT Plan of Treatment Health Maintenance Due Date Last Done Comments HPV VACCINES (1 - Male 3-dose series) 10/26/2015 DTAP/TDAP/TD VACCINES (1 - Tdap) 10/26/2019 HEPATITIS B VACCINES (1 of 3 - 19+ 3-dose series) 09/30 INFLUENZA VACCINE (#1) 2024 Insurance MEDICAID [place]
--- OUTSIDE RECORDS SUMMARY | 2025-03-20 21:16 | XMS_ITS | Clinical Summary ---
Author Organization [facility] Address [address] Attn: Epic Prelude ADT [place] [address] Care Team Providers Care Band Singer Name Role Phone Unavailable Primary Care Provider Unavailabl e Allergies Active Allergy Reactions Criticality Noted Date Comments [place] Other (See Comments) 10/09/2019 Both parents allergic to it, so they assume he is too. Medications propranoloL (INDERAL) 10 mg tablet Take 10 mg by mouth daily. 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
[2025-03-20 21:22] LABS: Hematocrit 44.6 % (37-53); Hemoglobin 14.10 g/dL (11.27-16.99); Mean Corpuscular HGB Conc 31.6 g/dL (30-55); Mean Corpuscular Hemoglobin 23.9 pg (27-33); Mean Corpuscular Volume 75.7 fl (82-101); Nucleated Red Blood Cells % 0 %; Platelet Count 198 10^3/cmm (157-399); Red Blood Count 5.89 10^6/uL (3.85-5.65); White Blood Count 7.98 10^3/uL (3.29-11.43)
[2025-03-20 21:39] LABS: Anion Gap 15.1 (5-19); Blood Urea Nitrogen 13 mg/dL (6-20); Calcium 9.7 mg/dL (8.5-10.5); Carbon Dioxide 27 mmol/L (22-29); Chloride 102 mmol/L (98-107); Creatinine Clr Calc Pharmacy 203.3851; Glucose 117 mg/dL (65-115); Lactic Sepsis W/Reflex 1.1 mmol/L (0.5-2.2); Osmolality Calculated 291 mOsm/kg (285-295); Potassium 4.1 mmol/L (3.5-5.1); Sodium 140 mmol/L (136-145)
[2025-03-20] MEDS: iohexol 350 mg/mL 500 mL Btl (per mL) IV (22:34)
--- NOTE | 2025-03-20 22:42 | PC.NURSE ---
Pt has not been on continuous monitoring due to staying in the bathroom.
[2025-03-20 23:02] LABS: Glucose Urine UA Negative (Normal); Nitrate Urine Negative (Negative)
[2025-03-20 23:05] LABS: Add Urine Microscopic? YES; Specific Gravity, Urine 1.074 (1.005-1.030)
[2025-03-20] MEDS: magnesium citrate Btl 296 mL PO (23:46)
== END 2025-03-20 23:46 | disposition home or self-care (01) ==
PROVIDERS: Emergency Provider Student in an Organized Health Care Education/Training Program; PCP Nurse Practitioner Family
DX: K59.00 Constipation, unspecified (principal); N20.0 Calculus of kidney; Z85.850 Personal history of malignant neoplasm of thyroid
CPT/HCPCS: 36415; 74177; 76870; 80048; 81001; 83605; 85025; 87086; 96374; 99285; J1171; J9999

== ENCOUNTER 2025-03-21 11:52 | Emergency (ER) | payer MEDICARE, MEDICAID, SELFPAY ==
[2019-12-08 10:33] VITALS: BP 139/85; BMI 33.7
--- OUTSIDE RECORDS SUMMARY | 2025-03-21 11:56 | XMS_ITS | Clinical Summary ---
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
--- OUTSIDE RECORDS SUMMARY | 2025-03-21 11:56 | XMS_ITS | Clinical Summary ---
Author Organization [facility] Address [address] [place] [address] Phone Care Team Providers Care Retirement Plan Specialist Name Role Phone Unavailable Primary Care Provider Unavailabl e Allergies Active Allergy Reactions Criticality Noted Date Comments [place] Other (See Comments) 10/09/2019 Both parents allergic [...]
[2025-03-21 12:39] VITALS: BMI 39.3
[2025-03-21 12:42] VITALS: BP 149/90; PULSE 95; RESP 20; TEMP 36.8; O2SAT 99
--- NOTE | 2025-03-21 12:58 | USR_ITS ---
PROCEDURE INFORMATION: Exam: US Scrotum and US Duplex Artery and Vein, Scrotum, Complete Exam date and time: 03/21/2025 1:12 PM Age: 24 years old Clinical indication: Scrotum pain; Additional info: Testicle pain TECHNIQUE: Imaging protocol: Real-time ultrasound of the scrotum. Real-time duplex ultrasound scan of the arterial and venous flow of the scrotum with B-mode, color Doppler flow and spectral waveform analysis. Complete exam. Duplex exam was performed to evaluate for torsion and other vascular conditions. COMPARISON: US scrotum [id number] 03/20/2025 9:39 PM FINDINGS: Right testicle: Right testicle measures 4.1 x 1.9 x 2.7 cm. Unremarkable echotexture with no mass lesion demonstrated. Unremarkable arterial and venous Doppler waveforms demonstrated, with no findings to suggest testicular torsion at this time. Left testicle: Left testicle measures 4.2 x 2.2 x 2.4 cm. Unremarkable echotexture with no mass lesion demonstrated. Unremarkable arterial and venous Doppler waveforms demonstrated, with no findings to suggest testicular torsion at this time. Epididymides: The epididymides appear unremarkable without increased vascularity. Extratesticular spaces: No hydrocele. Scrotum/soft tissues: Small varicosities seen in the left spermatic cord, which do not appear large enough to be classified as a varicocele. US/US scrotum [id number] IMPRESSION: 1. Both testicles appear within normal limits with unremarkable bilateral testicular blood flow demonstrated. No specific sonographic findings to suggest testicular torsion at this time. 2. The epididymides also appear within normal limits. 3. Small varicosities in the left spermatic cord, which do not appear large enough to be classified as a varicocele.
[2025-03-21 13:09] LABS: Hematocrit 45.8 % (37-53); Hemoglobin 14.50 g/dL (11.27-16.99); Mean Corpuscular HGB Conc 31.7 g/dL (30-55); Mean Corpuscular Hemoglobin 24.1 pg (27-33); Mean Corpuscular Volume 76.1 fl (82-101); Nucleated Red Blood Cells % 0 %; Platelet Count 214 10^3/cmm (157-399); Red Blood Count 6.02 10^6/uL (3.85-5.65); White Blood Count 10.04 10^3/uL (3.29-11.43)
--- NOTE | 2025-03-21 13:25 | ED_ITS ---
HPI - Male Genitourinary 2 General: Chief complaint: Urogenital-Male Stated complaint: L side Pain Time Seen by Provider: 03/21/25 12:38 Source: patient Mode of arrival: ambulatory Limitations: no limitations History of Present Illness: 24-year-old male seen last night for lef t-sided flank pain states he is told he likely passed a kidney stone he states he started having severe flank pain again today along with left testicle pain. Rates his pain a 7 out of 10 he had some hematuria denies any fever denies any vomiting denies any worse improved factors Related Data Home Medications ?Medication ?Instructions ?Recorded ?Confirmed renpcqm-[id number] 250 1 tab PO Q6H PRN Mi graine Headache 12/16/22 12/22/24 mg-250 mg-65 mg tablet (Migraine Formula) Previous Rx's ?Medication ?Instructions ?Recorded trazodone 50 mg tablet 50 mg PO DAILY #30 tabs 12/30 10/22 escitalopram oxalate 10 mg tablet 10 mg PO DAILY #30 t abs 09/22/24 (Lexapro) hydroxyzine HCl 25 mg tablet 25 mg PO BID PRN anxiety #60 tabs 09/22/24 sertraline 100 mg tablet 200 mg (2 x 100 mg) PO DAILY #60 11/17/24 tabs levothyroxine 25 mcg tablet 25 mcg PO DAILY #30 tabs 0 11/26/24 (Synthroid) cyclobenzaprine 10 mg tablet 10 mg PO TID PRN muscle s pasm #90 12/22/24 tabs levothyroxine 300 mcg tablet See Rx Instructions .Rout e 02/11/25 .COMPLEX #100 tabs lactulose 10 gram/15 mL oral 20 g (30 mL) PO QID #473 mL 03/20/25 solution polyethylene glycol 3350 17 4 g PO DAILY #238 grams gram/dose oral powder (Miralax) hydrocodone 5 mg-acetaminophen 325 1 tab PO Q8H PRN pa in #14 tabs 03/21/25 mg tablet ondansetron 4 mg disintegrating 4 mg PO Q6H PRN nausea and 03/21/25 tablet vomiting #14 tabs Allergies Allergy/AdvReac Type Severity Reaction Status Date / Time lithium Allergy Unknown Unknown Verified 03/20/25 21:16 nutmeg oil (Myristica seed Allergy Unknown Unknown Verified 03/20/25 21:16 oil) vancomycin Allergy ALGY-Rash Verified 03/20/25 21:16 coconut oil AdvReac Intermediate He stated Verified 03/20/25 21:16 he turned red. Mice AdvReac Severe He stated Uncoded 03/20/25 21:16 he got hives and couldn't breathe PFSH ED 2 PFSH: Medical History (Updated 03/21/25 @ 13:59 by Ibrahima Curiel MD) Major depressive disorder, recurrent severe without psychotic features Migraine headache Low income Metastasis to lymph nodes Chronic post-traumatic stress disorder Psychiatric care Attention-deficit hyperactivity disorder, combined type Post-traumatic stress disorder, chronic Borderline personality disorder Surgical History Hx of neck surgery Hx of hernia repair Family History Other Dementia Diabetes Hypertension Lung disease Psychiatric illness Social History Smoking and tobacco/nicotine status: never used tobacco/nicotine Second hand smoke exposure: Yes Alcohol intake: never Substance/Drug Use: never Adopted: No Caregiver/support person: No Lives independently: Yes Household members: family Housing: House Marital status: Single Number of children: 0 Number of grandchildren: 0 Highest education level completed: High School Graduate service: No Current occupational status: student Current occupational exposures/hazards: No Pets and animals: Yes Pets & animals: cat(s) and dog(s) Leisure activites: art, reading and other Leisure activities details: video games Sexually active: No Current gender identity: Male Sun/Anabaptist: Other Special sun needs: No Agree to transfusion: Yes Physical Exam 2 Const: COMMON NORMALS: no acute distress, patient oriented x3 and healthy appearing HENMT: COMMON NORMALS: normocephalic and atraumatic HEAD & SCALP: n ormocephalic and atraumatic Neck/C-Spine: COMMON NORMALS: full ROM and supple Chest: COMMONS NORMALS: normal inspection of the chest Resp: COMMON NORMALS: normal respiratory effort Cardio: COMMON NORMALS: regular rate RATE: regular rate GI: COMMON NORMALS: Normal to inspection, nondistended, normoactive bowel sounds present, Soft to palpation, non-tender and no masses PALPATION: Yes Soft to palpation Extremity: COMMON NORMALS: normal to inspection and full ROM Neuro: COMMON NORMALS: patient oriented x3, moves all extremities and no focal motor deficits Psych: COMMON NORMALS: mental status grossly normal, Normal thought process present and cooperative THOUGHT PROCESS: Normal thought process present Skin: COMMON NORMALS: no rashes or lesions noted and no wounds GENERAL SKIN EXAM: no rashes or lesions noted Course 2 Vital Signs: Vital signs: Vital Signs Temperature 98.2 F 03/21/25 12:42 Pulse Rate 95 03/21/25 12:42 Respiratory Rate 18 03/21/25 13:33 Blood Pressure 149/90 03/21/25 12:42 Pulse Oximetry 99 03/21/25 12:42 Oxygen Delivery Me thod Room Air 03/21/25 12:42 MDM - Male Medical Decision Making Patient presents here with flank pain normal test complaint and hematuria differential includes testicle torsion, epididymitis, cystitis, kidney stone. Urinalysis did show hematuria here no signs of infection testicle ultrasound showed no signs of torsion or epididymitis he had had a CT scan yesterday he could have recently passed a stone causing pain. Will place him on hydrocodone and Zofran and get him follow-up with urology he is return if worsening he understands agrees to plan. Medical Records I reviewed the patient's medical records. Lab Data I reviewed the patient's lab results. 03/21/25 13:04 03/21/25 13:04 Radiology Impressions Scrotum Ultrasound 03/21/25 12:58 IMPRESSION: 1. Both testicles appear within normal limits with unremarkable bilateral testicular blood flow demonstrated. No specific sonographic findings to suggest testicular torsion at this time. 2. The epididymides also appear within normal limits. 3. Small varicosities in the left spermatic cord, which do not appear large enough to be classified as a varicocele. Laboratory Results WBC 10.04 10^3/uL (3.29-11.43) 03/21/25 13:04 RBC 6.02 10^6/uL (3.85-5.65) H 03/21/25 13:04 Hgb 14.50 g/dL (11.27-16.99) 03/21/25 13:04 Hct 45.8 % (37-53) 03/21/25 13:04 MCV 76.1 fl (82-101) L 03/21/25 13:04 MCH 24.1 pg (27-33) L 03/21/25 13:04 MCHC 31.7 g/dL (30-55) 03/21/25 13:04 RDW 14.5 % (12.1-15.1) 03/21/25 13:04 Plt Count 214 10^3/cmm (157-399) 03/21/25 13:04 MPV 11.8 fL (7.4-10.4) H 03/21/25 13:04 Neut % (Auto) 76.4 % 03/21/25 13:04 Lymph % (Auto) 13.5 % 03/21/25 13:04 Scott % (Auto) 7.6 % 03/21/25 13:04 Eos % (Auto) 1.6 % 03/21/25 13:04 Baso % (Auto) 0.5 % 03/21/25 13:04 Neut # (Auto) 7.67 10^3/uL (1.8-7.7) 03/21/25 13:04 Lymph # (Auto) 1.4 10^3/uL (0.8-4.8) 03/21/25 13:04 Scott # (Auto) 0.8 10^3/uL (0.2-0.9) 03/21/25 13:04 Eos # (Auto) 0.2 10^3/uL (0.0-0.8) 03/21/25 13:04 Baso # (Auto) 0.1 10^3/uL (0.0-0.1) 03/21/25 13:04 Nucleated RBC % (auto) 0 % 03/21/25 13:04 Nucleated RBCs # 0.0 /100WBC 03/21/25 13:04 Sodium 137 mmol/L (136-145) 03/21/25 13:04 Potassium 4.0 mmol/L (3.5-5.1) 03/21/25 13:04 Chloride 100 mmol/L (98-107) 03/21/25 13:04 Carbon Dioxide 26 mmol/L (22-29) 03/21/25 13:04 Anion Gap 15.0 (5-19) 03/21/25 13:04 BUN 11 mg/dL (6-20) 03/21/25 13:04 Creatinine 1.0 mg/dL (0.7-1.2) 03/21/25 13:04 GFR Calculation 91.8 mL/min (90-130) 03/21/25 13:04 Glucose 105 mg/dL (65-115) 03/21/25 13:04 Calculated Osmolality 284 mOsm/kg (285-295) L 03/21/25 13:04 Calcium 9.9 mg/dL (8.5-10.5) 03/21/25 13:04 Total Bilirubin 0.3 mg/dL (0.15-1.2) 03/21/25 13:04 AST 27 U/L (0-40) 03/21/25 13:04 ALT 54 U/L (0-41) H 03/21/25 13:04 Alkaline Phosphatase 86 U/L (40-130) 03/21/25 13:04 Total Protein 8.1 g/dL (6.6-8.7) 03/21/25 13:04 Albumin 5.0 g/dL (3.5-5.2) 03/21/25 13:04 Globulin 3.1 g/dL (1.3-4.6) 03/21/25 13:04 Urine Color [place] (Yellow) A 03/21/25 13:30 Urine Appearance Clear (CLEAR) 03/21/25 13:30 Urine pH 6.5 (5-7) 03/21/25 13:30 Ur Specific [place] 1.036 (1.005-1.030) H 03/21/25 13:30 Urine Protein 2+ (Negative) A 03/21/25 13:30 Urine Glucose (UA) Negative (Normal) 03/21/25 13:30 Urine Ketones Trace (Negative) 03/21/25 13:30 Urine Blood 3+ (Negative) A 03/21/25 13:30 Urine Nitrate Negative (Negative) 03/21/25 13:30 Urine Bilirubin Negative (Negative) 03/21/25 13:30 Urine Urobilinogen 1.0 mg/dL (Negative) 03/21/25 13:30 Ur Leukocyte Esterase Negative (Negative) 03/21/25 13:30 Urine RBC >100 /hpf (0-2) H 03/21/25 13:30 Urine WBC 0-5 /hpf (0-5) 03/21/25 13:30 Ur Squamous Epith Cells 0-5 /hpf (0-5) 03/21/25 13:30 Amorphous Sediment Not Reportable 03/21/25 13:30 Urine Bacteria None seen /hpf (NONE) 03/21/25 13:30 Hyaline Casts 1.21 /lpf 03/21/25 13:30 All radiology interpretation(s) finalized by discharge Discharge Plan Discharge Patient Disposition: Home Clinical Impression: Hematuria, Flank pain Condition: Stable Prescriptions: New hydrocodone-acetaminophen 5-325 mg tablet 1 tab PO Q8H PRN (Reason: pain) Qty: 14 0RF ondansetron 4 mg tablet,disintegrating 4 mg PO Q6H PRN (Reason: nausea and vomiting) Qty: 14 0RF No Action trazodone 50 mg tablet 50 mg PO DAILY Qty: 30 2RF hydroxyzine HCl 25 mg tablet 25 mg PO BID PRN (Reason: anxiety) Qty: 60 1RF escitalopram oxalate [Lexapro] 10 mg tablet 10 mg PO DAILY Qty: 30 1RF sertraline 100 mg tablet 200 mg PO DAILY Qty: 60 2RF levothyroxine [Synthroid] 25 mcg tablet 25 mcg PO DAILY Qty: 30 2RF cyclobenzaprine 10 mg tablet 10 mg PO TID PRN (Reason: muscle spasm) Qty: 90 0RF levothyroxine 300 mcg tablet See Rx Instructions .ROUTE .COMPLEX Qty: 100 3RF Dose Instruction: TAKE 1 TABLET BY MOUTH ONCE DAILY SATURDAY - SATURDAY AND 1/2 TABLET ON SATURDAY Rx Instructions: TAKE 1 TABLET BY MOUTH ONCE DAILY SATURDAY - SATURDAY AND 1/2 TABLET ON SATURDAY polyethylene glycol 3350 [Miralax] 17 gram/dose powder 4 g PO DAILY Qty: 238 0RF lactulose 10 gram/15 mL solution 20 g PO QID Qty: 473 0RF Migraine Formula 250-250-65 mg Tablet 1 tab PO Q6H PRN (Reason: Migraine Headache) Discharge Orders: Discharge ED (Routine); Ordered 03/21/25 Ordered By: Ibrahima Curiel Referrals: Chavez,Tamara, [employer] [Primary Care Provider, Nurse Practitioner] - 4-7 days Discharge Diet: Advance as tolerated Discharge Activity: Resume usual activity Patient Instructions: Hematuria (ED), Opioid Safety Print Language: Nigerien Coding Level of Care Code ED Microbiology Technician for [facility]
[2025-03-21 13:27] LABS: Alanine Aminotransferase 54 U/L (0-41); Albumin Level 5.0 g/dL (3.5-5.2); Alkaline Phosphatase 86 U/L (40-130); Anion Gap 15.0 (5-19); Aspartate Amino Transferase 27 U/L (0-40); Blood Urea Nitrogen 11 mg/dL (6-20); Calcium 9.9 mg/dL (8.5-10.5); Carbon Dioxide 26 mmol/L (22-29); Chloride 100 mmol/L (98-107); Globulin 3.1 g/dL (1.3-4.6); Glucose 105 mg/dL (65-115); Osmolality Calculated 284 mOsm/kg (285-295); Potassium 4.0 mmol/L (3.5-5.1); Sodium 137 mmol/L (136-145); Total Protein 8.1 g/dL (6.6-8.7)
[2025-03-21 13:33] VITALS: RESP 18
[2025-03-21] MEDS: LORazepam 2 mg/mL INJ 1 mL 1 MG IVP (13:33)
[2025-03-21] MEDS: ondansetron 2 mg/ML SDV 2 mL 4 MG IVP (13:33)
[2025-03-21] MEDS: morphine 4 mg/mL SDV 1 mL IVP (13:33)
[2025-03-21 13:39] LABS: Glucose Urine UA Negative (Normal); Nitrate Urine Negative (Negative)
[2025-03-21 13:44] LABS: Add Urine Microscopic? YES
[2025-03-21 13:53] LABS: Specific Gravity, Urine 1.036 (1.005-1.030)
--- NOTE | 2025-03-23 08:58 | DCPLANNER ---
Referral for Urology [facility]
== END 2025-03-21 14:46 | disposition home or self-care (01) ==
PROVIDERS: Emergency Provider Emergency Medicine; PCP Nurse Practitioner Family
DX: R31.9 Hematuria, unspecified (principal); R10.A2 Flank pain, left side
CPT/HCPCS: 36415; 76870; 80053; 81001; 85025; 87086; 96374; 96375; 99284; J2060; J2270; J2405